=== PATIENT | female | born 1935 | race Caucasian/White ===

== ENCOUNTER 2018-05-19 11:33 | Outpatient (CLI) | payer BC, SELFPAY ==
[2018-05-19 13:17] LABS: HCT 36.5 % (36.0-46.0); HGB 12.2 g/dL (12.0-15.5); Mean Corp. HGB Concentration 33.4 g/dL (32.0-36.0); Mean Corpuscular Hemoglobin 32.1 pg (27.0-33.0); Mean Corpuscular Volume 96.1 fL (80-95); Mean Platelet Volume 11.7 fL (8.0-11.0); Platelet Count 353 x1000/uL (130-400); RBC Distribution Width 13.4 % (11.7-14.6); White Blood Cell Count 8.57 k/cumm (4.4-10.8)
[2018-05-19 13:56] LABS: Anion Gap 8.5 mmol/L (3-11); BUN 15 mg/dL (7-18); CO2 26.5 mmol/L (21.0-32.0); CREATININE 0.66 mg/dL (0.55-1.02); Calcium 9.2 mg/dL (8.5-10.1); Chloride 97 mmol/L (98-107); Glucose 100 mg/dL (70-100); Potassium 4.5 mmol/L (3.5-5.1); Sodium 132 mmol/L (136-145); TSH 3.17 uIU/mL (0.358-3.74)
== END 2018-05-19 11:53 ==
PROVIDERS: PCP Family Medicine; Visit Provider Family Medicine
DX: I10 Essential (primary) hypertension (principal); E21.3 Hyperparathyroidism, unspecified
CPT/HCPCS: 36415; 80048; 85027; 84443

== ENCOUNTER 2018-06-15 00:34 | Outpatient (CLI) | payer BC, SELFPAY ==
--- NOTE | 2018-06-15 14:00 | MERGE_ITS ---
*[facility]* *[facility]* [address] [place] [address] Date of study: 06/15/2018 Transthoracic Echocardiography M-mode, complete 2D, complete spectral Doppler, and color Doppler *STUDY CONCLUSIONS* Summary: 1. Left ventricle: The cavity size was normal. Systolic function was normal. The estimated ejection fraction was 60-65%. Findings consistent with diastolic dysfunction. There was no evidence of elevated ventricular filling pressure by Doppler parameters. 2. Mitral valve: There was mild regurgitation. 3. Left atrium: The atrium was mildly dilated. 4. Right ventricle: The cavity size was normal. Wall thickness was normal. Systolic function was normal. 5. Atrial septum: No defect or patent foramen ovale was identified. 6. Tricuspid valve: There was mild-moderate regurgitation. 7. Pulmonary arteries: Pulmonary systolic pressure was in the range of 30mm Hg to 40mm Hg. 8. Inferior vena cava: The vessel was patent and normal in size. The respirophasic diameter changes were in the normal range (greater than or equal to 50%), consistent with normal central venous pressure. *PATIENT PRESENTATION* Height: 152.4cm ((60in) ) S/D Pressure: 141 / 67 Weight: 72.6kg ((159.7lb) ) BSA: 1.78m^2 Test start time: 02:00 PM. Test stop time: 03:00 PM. PERFORMING Unknown ORDERING Onofre Bran REFERRING Onofre Bran PERFORMING [facility] LENS POLISHER HAND RT Marco Antonio WilkersonR)(CHRISTIANO)MONIKA *PROCEDURE DATA* Procedure information: The patient was identified by two identifiers. This study was interpreted by [facility]. Pertinent images and digital data are archived for permanent storage and are available for subsequent review. No prior study was available for comparison. Study status: Routine. Transthoracic echocardiography. M-mode, complete 2D, complete spectral Doppler, and color Doppler. A Transthoracic Echocardiogram was performed. Scanning was performed from the parasternal, apical, subcostal, and suprasternal notch acoustic windows. Images were obtained using an [id number] cardiac ultrasound machine. Image quality was good. Study completion: The patient tolerated the procedure well. History: PMH: Dyspnea on exertion. *CARDIAC ANATOMY* Left ventricle: The cavity size was normal. Systolic function was normal. The estimated ejection fraction was 60-65%. The tissue Doppler parameters were abnormal. Findings consistent with diastolic dysfunction. There was no evidence of elevated ventricular filling pressure by Doppler parameters. Aortic valve: Trileaflet. Doppler: There was no stenosis. There was no significant regurgitation. VTI ratio of LVOT to aortic valve: 0.65. Valve area (VTI): 1.9cm^2. Indexed valve area (VTI): 1.1cm^2/m^2. Peak velocity ratio of LVOT to aortic valve: 0.62. Valve area (Vmax): 1.8cm^2. Indexed valve area (Vmax): 1cm^2/m^2. Mean velocity ratio of LVOT to aortic valve: 0.66. Valve area (Vmean): 1.9cm^2. Indexed valve area (Vmean): 1.1cm^2/m^2. Mean gradient (S): 6.8mm Hg. Peak gradient (S): 12.6mm Hg. Aorta: Aortic root: The aortic root was normal in size. Ascending aorta: The ascending aorta was normal in size. Mitral valve: Doppler: There was no evidence for stenosis. There was mild regurgitation. Valve area by pressure half-time: 3.4cm^2. Indexed valve area by pressure half-time: 1.9cm^2/m^2. Left atrium: The atrium was mildly dilated. Atrial septum: No defect or patent foramen ovale was identified. Right ventricle: The cavity size was normal. Wall thickness was normal. Systolic function was normal. Pulmonic valve: Doppler: There was no evidence for stenosis. There was mild regurgitation. Peak gradient (S): 2.8mm Hg. Tricuspid valve: Doppler: There was mild-moderate regurgitation. Pulmonary artery: Poorly visualized. Pulmonary systolic pressure was in the range of 30mm Hg to 40mm Hg. Right atrium: The atrium was normal in size. Pericardium: There was no pericardial effusion. Systemic veins: Inferior vena cava: Well visualized. The vessel was patent and normal in size. The respirophasic diameter changes were in the normal range (greater than or equal to 50%), consistent with normal central venous pressure. Baseline ECG: Bradycardia. Measurements Left ventricle Value Reference LV ID, ED, PLAX 3.8 cm 3.5 - 6.0 LV ID, ES, PLAX 2.5 cm 2.1 - 4.0 LV PW thickness, ED, PLAX 0.9 cm LV end-diastolic volume, 1-p A2C 61 ml LV ejection fraction, 1-p A2C 63 % LV end-diastolic volume, 1-p A4C 73 ml LV ejection fraction, 1-p A4C 57 % LV e', lateral 0.079 m/sec LV E/e', lateral 9 LV e', medial 0.066 m/sec LV E/e', medial 10 LV e', average 0.072 m/sec LV E/e', average 9 Ventricular septum Value Reference IVS thickness, ED, PLAX 0.8 cm LVOT Value Reference LVOT ID, A-P 1.9 cm LVOT area 2.9 cm^2 LVOT peak velocity, S 1.09 m/sec LVOT mean velocity, S 0.81 m/sec LVOT VTI, S 28.7 cm LVOT peak gradient, S 4.8 mm Hg LVOT mean gradient, S 2.9 mm Hg Stroke volume (SV), LVOT DP 84 ml Stroke index (SV/bsa), LVOT DP 47 ml/m^2 Aortic valve Value Reference Aortic valve peak velocity, S 1.8 m/sec Aortic valve mean velocity, S 1.24 m/sec Aortic valve VTI, S 44.0 cm Aortic mean gradient, S 6.8 mm Hg Aortic peak gradient, S 12.6 mm Hg VTI ratio, LVOT/AV 0.65 Aortic valve area, VTI 1.9 cm^2 Velocity ratio, peak, LVOT/AV 0.62 Aortic valve area, peak velocity 1.8 cm^2 Velocity ratio, mean, LVOT/AV 0.66 Aortic valve area, mean velocity 1.9 cm^2 Aortic valve area/bsa, mean velocity 1.1 cm^2/m^2 Aorta Value Reference Aortic root ID, ED 2.9 cm Ascending aorta ID, A-P, S 3.1 cm RVOT Value Reference RVOT VTI, S 19.2 cm Left atrium Value Reference LA ID, A-P, ES 4.2 cm LA ID/bsa, A-P (H) 2.4 cm/m^2 <=2.2 LA area, ES, A4C 20.3 cm^2 8.8 - 23.4 LA area, ES, A2C 22 cm^2 LA volume/bsa, ES, 1-p A4C 38 ml/m^2 LA volume, ES, 2-p 64 ml LA volume/bsa, ES, 2-p 36 ml/m^2 LA/aortic root ratio 1.47 Mitral valve Value Reference Mitral E-wave peak velocity 0.68 m/sec Mitral A-wave peak velocity 0.78 m/sec Mitral deceleration time 227 ms 150 - 230 Mitral pressure half-time 66 ms Mitral E/A ratio, peak 0.87 Mitral valve area, PHT, DP 3.4 cm^2 Pulmonary veins Value Reference Pulmonary vein peak velocity, S 0.63 m/sec Pulmonary vein peak velocity, D 0.42 m/sec Pulmonary vein velocity ratio, peak, 1.5 S/D Pulmonary vein A-wave reversal peak 0.33 m/sec velocity Tricuspid valve Value Reference Tricuspid regurg peak velocity 2.9 m/sec Tricuspid peak RV-RA gradient 32.7 mm Hg Right atrium Value Reference RA area, ES, A4C 10.3 cm^2 8.3 - 19.5 Pulmonic valve Value Reference Pulmonic peak gradient, S 2.8 mm Hg Legend: (L) and (H) digna values outside specified reference range. I have personally reviewed the images and have reviewed and edited the reported findings. Electronically signed by Alexandre Caldwell MD 06/15/2018 16:53
== END 2018-06-15 00:54 ==
PROVIDERS: PCP Family Medicine; Visit Provider Family Medicine
DX: R06.09 Other forms of dyspnea (principal); I10 Essential (primary) hypertension; I50.30 Unspecified diastolic (congestive) heart failure; I34.0 Nonrheumatic mitral (valve) insufficiency; I36.1 Nonrheumatic tricuspid (valve) insufficiency; E03.9 Hypothyroidism, unspecified
CPT/HCPCS: 93306

== ENCOUNTER 2019-05-20 11:38 | Outpatient (CLI) | payer BC, SELFPAY ==
[2019-05-20 14:34] LABS: Anion Gap 10.1 mmol/L (3-11); BUN 10 mg/dL (7-18); CO2 27.9 mmol/L (21.0-32.0); Calcium 9.3 mg/dL (8.5-10.1); Chloride 97 mmol/L (98-107); Glucose 99 mg/dL (70-100); Potassium 4.6 mmol/L (3.5-5.1); Sodium 135 mmol/L (136-145)
== END 2019-05-20 11:58 ==
PROVIDERS: PCP Family Medicine; Visit Provider Family Medicine
DX: Z00.00 Encounter for general adult medical examination without abnormal findings (principal)
CPT/HCPCS: 36415; 80048

== ENCOUNTER 2020-05-30 05:09 | Outpatient (CLI) | payer BC, SELFPAY ==
[2020-05-30 12:40] LABS: CREATININE 0.66 mg/dL (0.55-1.02); Calcium 8.9 mg/dL (8.5-10.1)
[2020-06-01 04:39] LABS: Vitamin D 25 Total 39.4 ng/ml (30-100)
[2020-06-02 12:53] LABS: Parathyroid Hormone,Intact 46 pg/mL
== END 2020-05-30 05:29 ==
PROVIDERS: PCP Nurse Practitioner; Visit Provider Nurse Practitioner
DX: E83.52 Hypercalcemia (principal); E21.3 Hyperparathyroidism, unspecified; E03.9 Hypothyroidism, unspecified; I10 Essential (primary) hypertension
CPT/HCPCS: 36415; 82306; 82310; 82565; 83970; 84443

== ENCOUNTER 2020-07-13 02:30 | Outpatient (CLI) | payer BC, SELFPAY ==
[2020-07-13 12:53] LABS: CREATININE 0.71 mg/dL (0.55-1.02); Potassium 4.2 mmol/L (3.5-5.1); TSH 2.46 uIU/mL (0.36-3.74)
== END 2020-07-13 02:50 ==
PROVIDERS: PCP Nurse Practitioner; Visit Provider Nurse Practitioner
DX: E03.9 Hypothyroidism, unspecified (principal); I10 Essential (primary) hypertension
CPT/HCPCS: 36415; 82565; 84132; 84443

== ENCOUNTER 2020-12-27 03:12 | Outpatient (CLI) | payer BC, SELFPAY ==
[2020-12-27 12:44] LABS: CREATININE 0.7 mg/dL (0.55-1.02); TSH 4.51 uIU/mL (0.36-3.74)
== END 2020-12-27 03:13 | disposition home or self-care (01) ==
LOC: LOS 03:12
PROVIDERS: PCP Nurse Practitioner; Visit Provider Nurse Practitioner
DX: E03.9 Hypothyroidism, unspecified (principal); I10 Essential (primary) hypertension
CPT/HCPCS: 36415; 82565; 84132; 84443

== ENCOUNTER 2021-02-14 02:53 | Outpatient (CLI) | payer BC, SELFPAY ==
[2021-02-14 13:17] LABS: TSH 2.61 uIU/mL (0.36-3.74)
== END 2021-02-14 02:54 | disposition home or self-care (01) ==
LOC: LOS 02:54
PROVIDERS: PCP Nurse Practitioner; Visit Provider Nurse Practitioner
DX: E03.9 Hypothyroidism, unspecified (principal)
CPT/HCPCS: 84443

== ENCOUNTER 2021-11-29 03:54 | Outpatient (CLI) | payer BC, SELFPAY | END 2021-11-29 03:55 | disposition home or self-care (01) | LOC: LOS 03:54 | PROVIDERS: PCP Nurse Practitioner; Visit Provider Nurse Practitioner ==

== ENCOUNTER 2021-12-05 01:25 | Outpatient (CLI) | payer BC, SELFPAY ==
[2021-12-05 13:47] LABS: Anion Gap 8.9 mmol/L (3-11); BUN 12 mg/dL (7-18); CO2 27.1 mmol/L (21.0-32.0); CREATININE 0.6 mg/dL (0.55-1.02); Calcium 8.9 mg/dL (8.5-10.1); Chloride 99 mmol/L (98-107); Glucose 90 mg/dL (74-106); Potassium 4.5 mmol/L (3.5-5.1); Sodium 135 mmol/L (136-145); TSH (W/Ref FT4) 2.78 uIU/mL (0.36-3.74)
== END 2021-12-05 01:26 | disposition home or self-care (01) ==
LOC: LOS 01:26
PROVIDERS: PCP Nurse Practitioner; Visit Provider Nurse Practitioner
DX: E03.9 Hypothyroidism, unspecified (principal); I10 Essential (primary) hypertension
CPT/HCPCS: 36415; 80048; 84443

== ENCOUNTER 2022-10-30 10:03 | Outpatient (CLI) | payer BC, SELFPAY ==
--- NOTE | 2022-10-30 10:00 | RT.EKG_ITS ---
APPROVED REPORT Exam: Resting ECG Reason for Exam: vision loss left eye 10/27/22 Patient Location: O HR:60 bpm ECG Measurements Heart Rate 60 AXIS HI 173 P 58 QRSd 92 QRS 36 QT 432 T 7 QTc 432 Conclusion Sinus rhythm...normal P axis, V-rate 50- 99
== END 2022-10-30 10:04 | disposition home or self-care (01) ==
LOC: DI.CM 10:07
PROVIDERS: PCP Nurse Practitioner Family; Visit Provider Nurse Practitioner Family
DX: H53.132 Sudden visual loss, left eye (principal)
CPT/HCPCS: 93010

== ENCOUNTER 2022-10-30 11:45 | Outpatient (CLI) | payer BC, SELFPAY ==
[2022-10-30 11:41] LABS: HCT 35.9 % (36.0-46.0); HGB 12.2 g/dL (11.2-15.7); MCH 32.5 pg (27.0-33.0); MCV 96 fL (80-95); MPV 10.9 fL (8.0-11.0); Platelet Count 316 10^3/uL (130-400); RBC 3.75 10^6/uL (3.93-5.22); RDW 12.9 % (11.7-14.6); RDW-SD 45.9 fL
[2022-10-30 11:50] LABS: PTT Activated 21.4 sec (21.5-31.9)
[2022-10-30 11:54] LABS: ALT 22 U/L (14-59); AST 19 U/L (15-37); Albumin 3.9 g/dL (3.4-5.0); Alkaline Phosphatase 99 U/L (46-116); Anion Gap 9.1 mmol/L (3-11); BUN 12 mg/dL (7-18); Bilirubin, Total 0.5 mg/dL (0.2-1.0); CO2 25.9 mmol/L (21.0-32.0); CREATININE 0.7 mg/dL (0.55-1.02); Calcium 9.5 mg/dL (8.5-10.1); Chloride 98 mmol/L (98-107); Estimated GFR 84.17 (mL/min/1.73m2); Glucose 111 mg/dL (74-106); Potassium 3.9 mmol/L (3.5-5.1); Sodium 133 mmol/L (136-145); Total Protein 7.5 g/dL (6.4-8.2)
[2022-10-30 13:39] LABS: INR 0.9 (0.9-1.1); Prothrombin Time 9.5 sec (9.3-11.0)
== END 2022-10-30 11:46 | disposition home or self-care (01) ==
LOC: LBO 11:46
PROVIDERS: PCP Nurse Practitioner Family; Visit Provider Nurse Practitioner Family
DX: H53.132 Sudden visual loss, left eye (principal)
CPT/HCPCS: 80053; 85027; 85610; 85730

== ENCOUNTER 2022-10-30 12:52 | Outpatient (CLI) | payer BC, SELFPAY ==
--- NOTE | 2022-10-30 13:20 | DI.CT_ITS ---
Exam(s) CT ORBITS WO/W EXAM: CT ORBITS WO/W CLINICAL HISTORY: eye dr rich beckett left eye w/ hemorrhage surroundin. TECHNIQUE: Imaging Protocol: Axial computed tomography images with coronal and sagittal reformatted images were created and reviewed CONTRAST MATERIAL: Intravenous: Omnipaque 350 Contrast volume: 100 structured data in ml Contrast ro [place]:IV - COMPARISON: No exams were available for comparison FINDINGS: Globes: The anterior and posterior chambers are intact. Optic Nerves: Normal. Extraocular muscles: Normal. Retrobulbar fat: Normal. Orbital jennings: No fracture is noted. Superior ophthalmic veins: Normal. Sinuses: Unremarkable. Soft Tissues: Normal. IMPRESSION: Normal CT scan of the orbits. RADIATION DOSE DELIVERED: 492.6mGy.cm Total DLP DATA REPOSITORY: All CT scans at this facility are submitted to the National Radiology Data Registry (NRDR) Dose Index Registry (DIR) with the [employer] (ACR). RADIATION OPTIMIZATION: All CT scans at this facility use at least one of these dose optimization te chniques: automated exposure control; mA and/or kV adjustment per patient size (includes targeted exa ms where dose is matched to clinical indication); or iterative reconstruction.
[2022-10-30] MEDS: Omnipaque 350 MG/ML 100 ML BTL IJ (13:28)
[2022-10-30] MEDS: Normal Saline Flush 10 ML SYR IVP (13:29)
== END 2022-10-30 13:12 ==
LOC: DI 12:54
PROVIDERS: PCP Nurse Practitioner Family; Visit Provider Nurse Practitioner Family
DX: H53.132 Sudden visual loss, left eye (principal); H57.89 Other specified disorders of eye and adnexa
CPT/HCPCS: 70482; J3490

== ENCOUNTER 2022-10-31 16:23 | Inpatient (IN) | payer MEDICARE, BC, SELFPAY ==
[2022-10-31] VITALS (15 sets, daily range): BP systolic 133–194; BP diastolic 54–113; PULSE 73–90; RESP 16–24; TEMP 36.2–38.3; O2SAT 95–100
--- NOTE | 2022-10-31 16:15 | RT.EKG_ITS ---
APPROVED REPORT Exam: Resting ECG Reason for Exam: possible stroke Patient Location: E HR:76 bpm ECG Measurements Heart Rate 76 AXIS [place] 169 P 55 QRSd 92 QRS 27 QT 397 T -6 QTc 447 Conclusion Sinus rhythm...normal P axis, V-rate 60- 99 Repol abnrm suggests ischemia, anterolateral...ST dep, T neg, I aVL V2-V6. Sinus. Normal axis. No STEMI. I have reviewed and interpreted ECG and agree with software generated interpretation.
--- NOTE | 2022-10-31 16:40 | ED.GENADUL_ITS ---
Discharge Plan Disposition Patient Disposition: Admit to [facility] Condition: Stable Discharge Details Clinical Impression: Acute CVA (cerebrovascular accident) Admit Date/Time: 10/31/22 18:21 Admit Provider: Jamaal Valentine Attending Provider: Jamaal Valentine Primary Care Provider: Hang Rene ED Provider: Tamia Marr Discharge Data Discharge Date/Time-TO BE ENTERED AT DEPARTURE: 10/31/22 22:32 Medical Decision Making <Tamia Marr NP - Last Filed: 11/01/22 17:02> This is an 87-year-old patient who comes in with strokelike symptoms now resolved. She takes baby aspirin daily. We will initiate routine stroke work- up. As her symptoms are now resolved will start with Noncon head CT as she had a contrasted CT yesterday. IV has been established. Will continue telemetry monitoring her EKG shows normal sinus rhythm with no acute changes. After all her labs are reviewed and unremarkable symptoms remained resolved. She will be admitted to the hospitalist services for further monitoring and MRI of the brain in the a.m. Case was discussed with neurology at [facility] who does recommend Plavix load and daily Plavix. Also low threshold to perform CTA if her symptoms recur. She will be given gentle IV hydration of half liter normal saline <Renuka Valadez DO - Last Filed: 11/01/22 22:53> This is an 87-year-old patient who comes in with strokelike symptoms now resolved. She takes baby aspirin daily. We will initiate routine stroke work- up. As her symptoms are now resolved will start with Noncon head CT as she had a contrasted CT yesterday. IV has been established. Will continue telemetry monitoring her EKG shows normal sinus rhythm with no acute changes. After all her labs are reviewed and unremarkable symptoms remained resolved. She will be admitted to the hospitalist services for further monitoring and MRI of the brain in the a.m. Case was discussed with neurology at [facility] who does recommend Plavix load and daily Plavix. Also low threshold to perform CTA if her symptoms recur. She will be given gentle IV hydration of half liter normal saline. Dr. Valadez Patient not seen or examined by me but I was available for consult if needed. HPI <Tamia Marr NP - Last Filed: 11/01/22 17:02> General Mode of arrival: ambulatory . Date/Time Provider Initiated Documentation: 10/31/22 16:38 . Limitations to Documentation: no limitations . Information obtained by: family (Son) . HPI Narrative: This is an 87-year-old female patient with a past medical history significant for hypertension hyperlipidemia hypothyroidism who presents to the emergency department after first reporting a sudden loss of vision in her left eye several days ago. She was seen by her head of insight who told her she had a bleed in her eye she has complete loss of vision in that eye. She was then further evaluated by her primary care provider who did routine lab work and a CT of the orbits. CT scan was unremarkable labs unremarkable. Today son reports that he noticed that she started having intermittent garbled speech so presented here for evaluation. She has had intermittent headache. She has had no fever or recent illness. Besides lack of vision her physical exam is unremarkable. She has had no unilateral weakness. Related Data Home Medications Medication Instructions Recorded Confirmed acetaminophen 500 mg tablet 500 mg PO DAILY 02/07/14 10/31/22 (Tylenol Extra Strength) aspirin 81 mg tablet,delayed 81 mg PO DAILY #90 tabs 09/18/21 10/31/22 release Synthroid 88 mcg tablet 88 mcg PO DAILY #90 tabs 07/26/22 10/31/22 (levothyroxine) losartan 50 mg tablet 100 mg PO DAILY #180 tab-caps 07/26/22 10/31/22 metoprolol tartrate 50 mg tablet 50 mg PO BID #180 tab-caps 07/26/22 10/31/22 amlodipine 5 mg tablet 10 mg PO BID 10/31/22 10/31/22 atorvastatin 20 mg tablet 40 mg PO DAILY #90 tabs 11/01/22 10/31/22 clopidogrel 75 mg tablet 75 mg PO DAILY #30 tabs 11/01/22 Previous Rx's Medication Instructions Recorded aspirin 81 mg tablet,delayed 81 mg PO DAILY #90 tabs 09/18/21 release Synthroid 88 mcg tablet 88 mcg PO DAILY #90 tabs 07/26/22 (levothyroxine) losartan 50 mg tablet 100 mg PO DAILY #180 tab-caps 07/26/22 metoprolol tartrate 50 mg tablet 50 mg PO BID #180 tab-caps 07/26/22 atorvastatin 20 mg tablet 40 mg PO DAILY #90 tabs 11/01/22 clopidogrel 75 mg tablet 75 mg PO DAILY #30 tabs 11/01/22 Allergies Allergy/AdvReac Type Severity Reaction Status Date / Time lisinopril AdvReac Severe Suicidal Unverified 10/30/22 09:57 Ideation General Stated Complaint: CVA/TIA ESPINOZA: 2 Review of Systems <Tamia Marr NP - Last Filed: 11/01/22 17:02> Narrative: Loss of vision in left eye and garbled speech All systems reviewed & are unremarkable except as noted in HPI and below PFSH <Tamia Marr NP - Last Filed: 11/01/22 17:02> All Active Problems (Updated 11/01/22 @ 17:02 by Tamia Marr NP) Acute CVA (cerebrovascular accident) (Acute) Obesity (Chronic) a. Stage I. Arthritis (Acute) Essential hypertension (Acute 09/03/13) Hyperlipidemia (Acute) Hyperparathyroidism, unspecified (Acute 07/13/12) Has seen endo at [facility]- bx, benign (2014 @) 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 Edwards,[facility] Hypothyroidism (Acute 03/08/13) Osteopenia (Acute) Osteoarthritis, hip, bilateral (Acute) glucosamine Vision, loss, sudden (Acute) left eye 10/27/22 Medical History End of life care Advanced directives. Patient completed her advance directives and herCOLST forms. 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 Fracture of thoracic spine History of hypercalcemia a. With elevate TTH secondary to a benign adenoma now diminished in size. History of tobacco use Smoking history a. Quit approximately 50 years ago after 10 pack years. Unstable angina a. Recurrent chest pressure with left arm weakness x 4 - 6 weeks. b. Multiple cardiac risk factors. Surgical History Cardiac cath (~2013) History of cardiac cath (12/17/13) Normal coronaries Para-thyroid adenoma surgery (~2014) Skin Cancer Removal 09/07/16 Thyroid (~2005) BX; RIGHT Family History Mother , age 81 Essential hypertension Hypothyroid Hypertension Heart disease Father , age 71 Diabetes Essential hypertension Heart disease Myocardial infarction Sister Essential hypertension Heart disease Breast cancer Brother , age 83 Essential hypertension Depression Stroke Heart disease Maternal Grandfather , age 39 Pneumonia Heart disease Paternal Grandfather , age 72 Heart disease Alcohol abuse Depression Maternal Grandmother , age 36 Heart disease Pneumonia Paternal Grandmother , age 70 Heart disease Depression Son Essential hypertension Depression Alcohol abuse Son Alcohol abuse Essential hypertension Son , AGE 55 Substance abuse Diabetes Essential hypertension Heart disease Hyperlipidemia Depression Son Essential hypertension Daughter Hypertension Sister No problems noted. Social History (Updated 07/30/22 @ 16:17 by Lore Dial) Smoking/Tobacco Use Status: Former Tobacco Use tobacco type: cigarettes Quit Date: 07/28/1967 Tobacco: How many years used: 6 Second Hand Exposure: Yes Smoking risk assessment performed?: Yes Alcohol Intake: current Alcohol Intake frequency: a few times a week Alcohol type: wine Drug use: Never Substance use type: does not use Caregiver/Support person: No Household members: none Housing: apartment Communication Needs: None Do you need help understanding health information?: Never Pets and animals: No Sexually active: No Do you think of yourself as: straight/heterosexual Current gender identity: female What is your relationship status?: How often do you talk on the phone with friends or family?: three or more times per week How often do you get together with friends or relatives?: three or more times per week How often do you attend worship or protestant services?: 4 or more times per year Do you belong to any clubs or organized social groups?: yes Panel score (0-1 are the most socially isolated patients): 3 What type of physical activity do you participate in: walking Duration: 45-60 minutes/day Frequency: 5-6 times per week Gayle/Oriental Orthodox: Catholic Special gayle needs: No Seatbelt use: always Helmet use: No Drive intox or ride w/intox long haul truck driver: No Do you feel safe in your relationship?: Yes Victim of physical abuse: No Victim of emotional abuse: No Victim of sexual abuse: No Would you like helpful sources: No Exam <Tamia Marr NP - Last Filed: 11/01/22 17:02> Const General: cooperative, comfortable and no acute distress Nutritional Appearance: overweight Orientation: alert, awake and oriented to person [facility] Head: normal to inspection, normocephalic and atraumatic Face and sinus: normal facial exam Mouth: oral mucosae normal Throat: posterior oropharynx normal Eyes General: appearance normal, both eyes and all related structures Alignment and Position: alignment normal and position normal Eyelids: eyelids normal Conjunctivae: conjunctivae normal Sclera: sclerae normal EOM: EOM abnormal and movement deficit unable to deviate laterally (To left) Chest Chest: normal inspection of the chest Resp Effort & Inspection: normal respiratory effort Cardio Rate: regular rate Rhythm: regular rhythm GI Inspection: normal to inspection Palpation: soft Auscultation: normal bowel sounds Skin General skin exam: no rashes or lesions noted Neuro General: patient alert, patient awake, patient oriented x3, no focal motor deficits and CN's II-XI intact bilaterally Cranial Nerves: no nystagmus, facial strength normal and tongue midline Cognition: normal cognition Speech: speech normal Gait: normal gait Motor: muscle tone normal throughout and strength 5/5 throughout Extrem General: normal to inspection, full ROM and no pedal edema Psych Mental Status: mental status grossly normal Speech and Movement: speech and movement normal Mood: congruent mood Affect: normal affect Course <Tamia Marr NP - Last Filed: 11/01/22 17:02> Vital Signs Vital signs: Vital Signs Temperature 36.2 C L 10/31/22 16:28 Pulse 83 10/31/22 16:28 Respiratory Rate 16 10/31/22 16:28 Blood Pressure 172/54 H 10/31/22 16:28 Pulse Oximetry 99 10/31/22 16:28 Temperature 36.2 C L 10/31/22 16:28 Temperature Source Oral 10/31/22 16:28 Pulse 83 10/31/22 16:28 Respiratory Rate 16 10/31/22 16:28 Blood Pressure 172/54 H 10/31/22 16:28 Blood Pressure Position Sitting 10/31/22 16:28 Pulse Oximetry 99 10/31/22 16:28 Oxygen Delivery Method Room Air 10/31/22 16:28 Oxygen Flow Rate 0 10/31/22 16:28 Pain Level 5 10/31/22 16:28 Comment takes 500mg tylenol BID 10/31/22 16:28
--- NOTE | 2022-10-31 17:15 | DI.CT_ITS ---
Exam(s) CT HEAD WO EXAM: CT HEAD WO CLINICAL HISTORY: cva. TECHNIQUE: Imaging Protocol: Axial computed tomography images with coronal and sagittal reformatted images were created and reviewed COMPARISON: CT CT ORBITS WO/W from 10/30/2022 FINDINGS: Ventricles and Extra axial spaces: Normal in size and morphology for the patient's age. Hemorrhage: None. Cerebral parenchyma: No acute territorial infarct. There are areas of decreased attenuation in the w kristel matter suggestive of small vessel ischemic disease. Midline shift: None. Brainstem/Cerebellum: Normal. Calvarium: Normal. Visualized Paranasal sinuses/Mastoids: Clear. Soft Tissues: Unremarkable. IMPRESSION: No acute intracranial process. RADIATION DOSE DELIVERED: 769.8mGy.cm Total DLP DATA REPOSITORY: All CT scans at this facility are submitted to the National Radiology Data Registry (NRDR) Dose Index Registry (DIR) with the [employer] (ACR). RADIATION OPTIMIZATION: All CT scans at this facility use at least one of these dose optimization te chniques: automated exposure control; mA and/or kV adjustment per patient size (includes targeted exa ms where dose is matched to clinical indication); or iterative reconstruction.
[2022-10-31] MEDS: Omnipaque 350 MG/ML 100 ML BTL IJ (17:21)
[2022-10-31] MEDS: Normal Saline - Diluent 50 ML VIAL IJ (17:22)
[2022-10-31 17:26] LABS: Abs Immature Grans 0.03 10^3/uL (0.0-0.06); Absolute Basophil Count 0.06 10^3/uL (0.0-0.2); Absolute Eosinophil Count 0.16 10^3/uL (0.0-0.7); Absolute Lymphocyte Count 2.36 10^3/uL (1.2-3.4); Absolute Monocyte Count 0.82 10^3/uL (0.1-0.8); Basophils % 0.6; Eosinophils % 1.6; HCT 32.9 % (36.0-46.0); HGB 11.4 g/dL (11.2-15.7); Immature Grans % 0.3; Lymphocytes % 23.8; MCH 32.5 pg (27.0-33.0); MCHC 34.7 % (32.0-36.0); MCV 94 fL (80-95); Monocytes % 8.3; Neutrophils % 65.4; RBC 3.51 10^6/uL (3.93-5.22); RDW 12.9 % (11.7-14.6); RDW-SD 44.3 fL; WBC 9.93 10^3/uL (4.4-10.8)
--- NOTE | 2022-10-31 17:41 | DI.VRAD_ITS ---
PROCEDURE INFORMATION: Exam: CT Head Without Contrast Exam date and time: 10/31/2022 5:26 PM Age: 87 years old Clinical indication: Condition or disease; Other: CVA TECHNIQUE: Imaging protocol: Computed tomography of the head without contrast. COMPARISON: CT ORBITS WO/W 10/30/2022 1:07 PM FINDINGS: Brain: No evidence of acute infarct. No intraparenchymal hemorrhage. No midline shift or mass effect. No extra-axial fluid collections or hemorrhage. Cerebral ventricles: Mild dilatation of the lateral ventricles, cisterns and sulci is age-appropriate. Paranasal sinuses: Visualized sinuses are unremarkable. No fluid levels. Mastoid air cells: Visualized mastoid air cells are well aerated. Bones/joints: Unremarkable. No acute fracture. Soft tissues: Unremarkable. IMPRESSION: No acute intracranial abnormality. Dictated and Authenticated by: Russ Martinez MD. Ordering:SATYA Cantrell MD
[2022-10-31 17:43] LABS: ALT 22 U/L (14-59); AST 27 U/L (15-37); Albumin 3.6 g/dL (3.4-5.0); Alkaline Phosphatase 97 U/L (46-116); Anion Gap 12.4 mmol/L (3-11); BUN 13 mg/dL (7-18); Bilirubin, Total 0.4 mg/dL (0.2-1.0); CO2 20.6 mmol/L (21.0-32.0); CREATININE 0.6 mg/dL (0.55-1.02); Calcium 9.1 mg/dL (8.5-10.1); Chloride 98 mmol/L (98-107); Estimated GFR 87.36 (mL/min/1.73m2); Glucose 121 mg/dL (74-106); Magnesium 1.8 mg/dL (1.8-2.4); Potassium 4.2 mmol/L (3.5-5.1); Sodium 131 mmol/L (136-145); Total Protein 6.8 g/dL (6.4-8.2)
[2022-10-31 17:46] LABS: Diff Comment Diff Reviewed; RBC Morphology Normal
[2022-10-31] MEDS: Metoprolol 50 MG TAB PO (18:31)
[2022-10-31 18:41] LABS: Source Nasal/Nares
[2022-10-31 19:13] LABS: COVID-19 PCR Negative (Negative)
[2022-10-31] MEDS: amLODIPine 10 MG TAB PO (20:33)
--- NOTE | 2022-10-31 21:02 | HPE_ITS ---
Date of service: 10/31/22 Time of Service: 21:02 Assessment and Plan Assessment and plan (1) CVA (cerebral vascular accident): Status: Suspected Assessment and plan: discussed with Dr De Los Santos at [facility], recommends plavix 300 mg load and 75 mg daily while awaiting MRI tomorrow, low threshold to do CTA head/neck if symptoms return (held off as she received IV contrast yesterday). telemetry, and routine cva work up. echo and carotid us in am (2) Vision, loss, sudden: Status: Acute Assessment and plan: seen by software tester and diagnosed with central retinal artery occlusion. Most likely she has been taking increased ASA dose of 325 mg daily symptoms unchanged since Friday when they began (3) Hyperlipidemia: Status: Acute Assessment and plan: continue statin (4) Essential hypertension: Status: Acute Assessment and plan: continue home medication consider permission HTN if cva confirmed, goal sbp < [address] Valentine History of Present Illness History of Present Illness Chief Complaint: garbled speech Narrative: This is an 87-year-old female patient with history of hypertension hyperlipidemia hypothyroidism who presented to the emergency department after she developed garbled speech today approximately noon. Earlier this week she developed left-sided visual loss seen by optometry and diagnosed with a retinal artery occlusion. She was referred to her PCP for further stroke work-up. She takes a baby aspirin daily. No history of atrial fibrillation no chest pain or chest palpitations. She has had no fever and otherwise no other complaints Review of Systems All systems reviewed & are unremarkable except as noted in HPI and below PFSH All Active Problems (Updated 10/31/22 @ 22:01 by Tamia Marr NP) Obesity (Chronic) a. Stage I. 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 Edwards,[facility] Hypothyroidism (Acute 03/08/13) Osteopenia (Acute) Osteoarthritis, hip, bilateral (Acute) glucosamine Vision, loss, sudden (Acute) left eye 10/27/22 Medical History End of life care Advanced directives. Patient completed her advance directives and herCOLST forms. 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 Fracture of thoracic spine History of hypercalcemia a. With elevate TTH secondary to a benign adenoma now diminished in size. History of tobacco use Smoking history a. Quit approximately 50 years ago after 10 pack years. Unstable angina a. Recurrent chest pressure with left arm weakness x 4 - 6 weeks. b. Multiple cardiac risk factors. Surgical History Cardiac cath (~2013) History of cardiac cath (12/17/13) Normal coronaries Para-thyroid adenoma surgery (~2014) Skin Cancer Removal 09/07/16 Thyroid (~2005) BX; RIGHT Family History Mother , age 81 Essential hypertension Hypothyroid Hypertension Heart disease Father , age 71 Diabetes Essential hypertension Heart disease Myocardial infarction Sister Essential hypertension Heart disease Breast cancer Brother , age 83 Essential hypertension Depression Stroke Heart disease Maternal Grandfather , age 39 Pneumonia Heart disease Paternal Grandfather , age 72 Heart disease Alcohol abuse Depression Maternal Grandmother , age 36 Heart disease Pneumonia Paternal Grandmother , age 70 Heart disease Depression Son Essential hypertension Depression Alcohol abuse Son Alcohol abuse Essential hypertension Son , AGE 55 Substance abuse Diabetes Essential hypertension Heart disease Hyperlipidemia Depression Son Essential hypertension Daughter Hypertension Sister No problems noted. Social History (Updated 07/30/22 @ 16:17 by Lore Dial) Smoking/Tobacco Use Status: Former Tobacco Use tobacco type: cigarettes Quit Date: 07/28/1967 Tobacco: How many years used: 6 Second Hand Exposure: Yes Smoking risk assessment performed?: Yes Alcohol Intake: current Alcohol Intake frequency: a few times a week Alcohol type: wine Drug use: Never Substance use type: does not use Caregiver/Support person: No Household members: none Housing: apartment Communication Needs: None Do you need help understanding health information?: Never Pets and animals: No Sexually active: No Do you think of yourself as: straight/heterosexual Current gender identity: female What is your relationship status?: How often do you talk on the phone with friends or family?: three or more times per week How often do you get together with friends or relatives?: three or more times per week How often do you attend mandaen or mandaeism services?: 4 or more times per year Do you belong to any clubs or organized social groups?: yes Panel score (0-1 are the most socially isolated patients): 3 What type of physical activity do you participate in: walking Duration: 45-60 minutes/day Frequency: 5-6 times per week Gayle/Sabianist: Rastafarian Special gayle needs: No Seatbelt use: always Helmet use: No Drive intox or ride w/intox milk pickup driver: No Do you feel safe in your relationship?: Yes Victim of physical abuse: No Victim of emotional abuse: No Victim of sexual abuse: No Would you like helpful sources: No Meds Allergies and Home Medications Allergies Allergy/AdvReac Type Severity Reaction Status Date / Time lisinopril AdvReac Severe Suicidal Unverified 10/30/22 09:57 Ideation Home Medications Medication Instructions Recorded Confirmed Type acetaminophen 500 mg tablet 500 mg PO DAILY 02/07/14 10/31/22 History (Tylenol Extra Strength) aspirin 81 mg tablet,delayed 81 mg PO DAILY #90 tabs 09/18/21 10/31/22 Rx release Synthroid 88 mcg tablet 88 mcg PO DAILY #90 tabs 07/26/22 10/31/22 Rx (levothyroxine) losartan 50 mg tablet 100 mg PO DAILY #180 tab-caps 07/26/22 10/31/22 Rx metoprolol tartrate 50 mg tablet 50 mg PO BID #180 tab-caps 07/26/22 10/31/22 Rx amlodipine 5 mg tablet 10 mg PO BID 10/31/22 10/31/22 History atorvastatin 20 mg tablet 40 mg PO DAILY #90 tabs 11/01/22 10/31/22 Rx clopidogrel 75 mg tablet 75 mg PO DAILY #30 tabs 11/01/22 Rx Exam Const General: cooperative, comfortable and no acute distress Nutritional Appearance: overweight Orientation: alert, awake and oriented to person [facility] Head: normal to inspection, normocephalic and atraumatic Face and sinus: normal facial exam Mouth: oral mucosae normal Throat: posterior oropharynx normal Eyes General: appearance normal, both eyes and all related structures Alignment and Position: alignment normal and position normal Eyelids: eyelids normal Conjunctivae: conjunctivae normal Sclera: sclerae normal EOM: EOM abnormal and movement deficit unable to deviate laterally (To left) Chest Chest: normal inspection of the chest Resp Effort & Inspection: normal respiratory effort Cardio Rate: regular rate Rhythm: regular rhythm GI Inspection: normal to inspection Palpation: soft Auscultation: normal bowel sounds Skin General skin exam: no rashes or lesions noted Neuro General: patient alert, patient awake, patient oriented x3, no focal motor deficits and CN's II-XI intact bilaterally Cranial Nerves: no nystagmus, facial strength normal and tongue midline Cognition: normal cognition Speech: speech normal Gait: normal gait Motor: muscle tone normal throughout and strength 5/5 throughout Extrem General: normal to inspection, full ROM and no pedal edema Psych Mental Status: mental status grossly normal Speech and Movement: speech and movement normal Mood: congruent mood Affect: normal affect Results Labs 10/31/22 17:14 10/31/22 17:14 Labs: Laboratory Results - last 24 hr 10/31/22 10/31/22 10/31/22 17:14 17:14 18:28 WBC 9.93 RBC 3.51 L Hgb 11.4 Hct 32.9 L MCV 94 MCH 32.5 MCHC 34.7 RDW 12.9 Plt Count MPV Immature Gran % 0.3 Neutrophils % 65.4 Lymphocytes % 23.8 Monocytes % 8.3 Eosinophils % 1.6 Basophils % 0.6 Nucleated RBC % 0.0 Absolute Neutrophils 6.50 Absolute Lymphocytes 2.36 Absolute Monocytes 0.82 H Absolute Eosinophils 0.16 Absolute Basophils 0.06 RBC Morphology Normal Sodium 131 L Potassium 4.2 Chloride 98 Carbon Dioxide 20.6 L Anion Gap 12.4 H BUN 13 Creatinine 0.6 Est GFR (CKD-EPI 2020) 87.36 Glucose 121 H Calcium 9.1 Magnesium 1.8 Total Bilirubin 0.4 AST 27 ALT 22 Alkaline Phosphatase 97 Total Protein 6.8 Albumin 3.6 COVID-19 Source Nasal/Nares SARS-CoV-2 (PCR) Negative Last Vital Signs Temp 38.1 C H 10/31/22 19:59 Pulse 78 10/31/22 19:59 Resp 16 10/31/22 19:59 BP 173/73 H 10/31/22 19:59 Pulse Ox 98 10/31/22 19:59 Time Spent Time spent with Patient: 40-54 minutes Time was spent: preparing to see the patient(eg.review tests), obtaining and/or reviewing separately otained hiistory, ordering medications,tests, procedures, referring, communicating with other health acute care surgeon, indepentently interpreting results and counseling the patient
[2022-10-31] MEDS: Acetaminophen 325 MG TAB 650 MG PO (22:57)
[2022-10-31] MEDS: Clopidogrel 300 MG TAB PO (22:57)
[2022-10-31] MEDS: Normal Saline 1,000 ML 100 ML IV (22:59)
[2022-10-31 23:18] LABS: Bilirubin Negative (Negative); Blood Trace-intact (Negative); Clarity Clear (Clear); Glucose Negative (Negative); Ketones 15 mg/dL (Negative); Leukocyte Esterase Negative (Negative); Nitrite Negative (Negative); Urobilinogen 0.2 mg/dL (Up to 0.2); pH 7.5 (5-8)
[2022-10-31 23:26] LABS: Bacteria Rare HPF (Negative); C & S Indicated? No; Casts Negative LPF (Negative); Crystals Negative HPF (Negative); Epithelial Cells Negative HPF (Negative); Mucus Negative (Negative); RBC 0-2 HPF (0-2); WBC Negative HPF (0-5)
[2022-11-01] VITALS (7 sets, daily range): BP systolic 146–165; BP diastolic 64–74; PULSE 66–88; RESP 16–20; TEMP 36.3–38; O2SAT 97–99
[2022-11-01] MEDS: Levothyroxine 88 MCG TAB PO (06:11)
[2022-11-01] MEDS: Acetaminophen 325 MG TAB 650 MG PO (06:11)
[2022-11-01 07:02] LABS: Abs Immature Grans 0.02 10^3/uL (0.0-0.06); Absolute Basophil Count 0.07 10^3/uL (0.0-0.2); Absolute Eosinophil Count 0.04 10^3/uL (0.0-0.7); Absolute Lymphocyte Count 1.38 10^3/uL (1.2-3.4); Absolute Monocyte Count 0.71 10^3/uL (0.1-0.8); Absolute Neutrophil Count 7.73 10^3/uL (1.2-6.7); Basophils % 0.7; Eosinophils % 0.4; HCT 32.8 % (36.0-46.0); HGB 11.6 g/dL (11.2-15.7); Immature Grans % 0.2; Lymphocytes % 13.9; MCH 33.3 pg (27.0-33.0); MCHC 35.4 % (32.0-36.0); MCV 94 fL (80-95); MPV 10.5 fL (8.0-11.0); Monocytes % 7.1; Neutrophils % 77.7; Platelet Count 331 10^3/uL (130-400); RBC 3.48 10^6/uL (3.93-5.22); RDW 12.9 % (11.7-14.6); RDW-SD 44.3 fL; WBC 9.95 10^3/uL (4.4-10.8)
[2022-11-01 07:12] LABS: Anion Gap 10.3 mmol/L (3-11); BUN 8 mg/dL (7-18); CO2 24.7 mmol/L (21.0-32.0); CREATININE 0.6 mg/dL (0.55-1.02); Calcium 8.5 mg/dL (8.5-10.1); Chloride 96 mmol/L (98-107); Estimated GFR 87.36 (mL/min/1.73m2); Glucose 120 mg/dL (74-106); Potassium 3.2 mmol/L (3.5-5.1); Sodium 131 mmol/L (136-145)
--- NOTE | 2022-11-01 08:00 | DI.US_ITS ---
Exam(s) US CAROTID EXAM: US CAROTID CLINICAL HISTORY: cva. TECHNIQUE: Ultrasound carotids performed using grayscale, color-flow, and spectral Doppler imaging. COMPARISON: No exams were available for comparison FINDINGS: RIGHT CAROTID ARTERY: Plaque: There is carotid plaque seen in the bulb and proximal ECA. Velocity elevation: None. LEFT CAROTID ARTERY: Plaque: There is calcific plaque seen in the mid CCA and carotid bulb. Velocity elevation: None. VERTEBRAL ARTERIES: Antegrade flow. Measurements: R Bulb: 84.1cm/s PS / 7.6cm/s ED R CCA: 89.3cm/s PS / 0cm/s ED R ECA: 167.2cm/s PS / 0cm/s ED R ICA Prox: 84cm/s PS / 11.9cm/s ED R ICA Mid: 65.5cm/s PS / 11.9cm/s ED R ICA Distal: 83cm/s PS /18.5cm/s ED R Vert: 70.9cm/s PS / 13cm/s ED R SVR: 0.9 R DVR: 1 L Bulb: 77.4cm/s PS / 9.6cm/s ED L CCA: 95.4cm/s PS / 15.47cm/s ED L ECA: 162cm/s PS / 0cm/s ED L ICA Prox: 86.9cm/s PS / 15.8cm/s ED L ICA Mid: 94.4cm/s PS / 16.8cm/s ED L ICA Distal: 98.7cm/s PS / 19.2cm/s ED L Vert: 106cm/s PS / 21cm/s ED L SVR: 1 L DVR: 1.3 IMPRESSION: 1. No evidence for hemodynamically significant carotid stenosis. 2. Atherosclerosis. Criteria for Carotid Stenosis: Normal: ICA PSV <125 cm/s no plaque or intimal thickening is visible. <50% stenosis: ICA PSV <125 cm/s and plaque or intimal thickening is visible. 50-69% stenosis: ICA PSV is 125-250 cm/s and plaque is visible. >70% stenosis to near occlusion: ICA PSV >250 cm/s with visible plaque and luminal narrowing. DATA REPOSITORY:
[2022-11-01] MEDS: amLODIPine 5 MG TAB 10 MG PO (08:11)
[2022-11-01] MEDS: Atorvastatin 20 MG TAB PO (08:11)
[2022-11-01] MEDS: Losartan 50 MG TAB 100 MG PO (08:11)
[2022-11-01] MEDS: Aspirin E.C. 81 MG TABEC PO (08:11)
[2022-11-01] MEDS: Metoprolol 50 MG TAB PO (08:12)
[2022-11-01] MEDS: Clopidogrel 75 MG TAB PO (08:12)
[2022-11-01 09:52] LABS: Magnesium 1.8 mg/dL (1.8-2.4)
--- NOTE | 2022-11-01 10:56 | INITIAL_ITS ---
- If Service Date Differs Date of service: 11/01/22 Time of Service: 10:56 Care Management Initial Assess REASON FOR HOSPITALIZATION:: CVA PAST MEDICAL HISTORY/PAST SURGICAL HISTORY:: Medical History . End of life care. Advanced directives. Patient completed her advance directives and her [employer] forms. 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 Fracture of thoracic spine. History of hypercalcemia. a. With elevate TTH secondary to a benign adenoma now diminished in size. History of tobacco use. Smoking history. a. Quit approximately 50 years ago after 10 pack years. Unstable angina. a. Recurrent chest pressure with left arm weakness x 4 - 6 weeks. b. Multiple cardiac risk factors. Surgical History . Cardiac cath (~2013). History of cardiac cath (12/17/13). Normal coronaries. Para-thyroid adenoma surgery (~2014). Skin Cancer Removal. 09/07/16. Thyroid (~2005). BX; RIGHT PREVIOUS FUNCTIONAL STATUS/SOCIAL/FAMILY SUPPORTS:: Zane resides in [place], [place] in an inlaw apartment attached to her son, Chip's home. She is independent at baseline in the community and continues to drive and manage her own ADLs. 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 CURRENT FUNCTIONAL STATUS:: Zane was sitting in her chair, she asked appropriate questions regarding discharge information and felt ready to return home independently. Her son, Chip was agreeable to plan as well. Both expressed appreciation for Zane's care. ADVANCE DIRECTIVES:: COLST on file. Has patient been provided with info about the portal/API?: Yes Did the patient sign up for the portal?: Yes CODE STATUS:: DNR/DNI INSURANCE COVERAGE / FINANCIAL ISSUES:: Medicare Part A. [facility] PRIMARY CARE PHYSICIAN:: Hang Elam NP. [facility]. POTENTIAL DISCHARGE NEEDS:: Follow up appointments. PATIENT/FAMILY EDUCATION NEEDS:: Review discharge instructions, discuss Ask Me Three. ANTICIPATED BARRIERS TO DISCHARGE:: None identified. TRANSPORTATION:: Via private vehicle with her son. PLAN:: Zane will return home when ready per MD. She will follow up with her PCP and plan of care as prescribed including outpatient follow up. She will transport via private vehicle with her son.
[2022-11-01] MEDS: Potassium Chloride 20 MEQ TABCR PO ×2 (11:59→16:38)
--- NOTE | 2022-11-01 14:45 | CHAPLAIN ---
Zane was up in a chair visiting with two family members/friends when I stopped in. She was very pleasant and easily engaged in a conversation. She hopes to go hoe soon.
--- NOTE | 2022-11-01 16:22 | W.PM.DS.N ---
Date of service: 11/01/22 Time of Service: 16:22 DS: Diagnosis Discharge Diagnosis (1) CVA (cerebral vascular accident): Status: Suspected (2) Vision, loss, sudden: Status: Acute (3) Hyperlipidemia: Status: Acute (4) Essential hypertension: Status: Acute Discharge Plan Disposition Patient Disposition: Home Condition: Stable Discharge Details Reason For Visit: CVA Admit Date/Time: 10/31/22 18:21 Admit Provider: Jamaal Valentine Attending Provider: Jamaal Valentine Primary Care Provider: Orquidea ElamHang Hospital Course Hospital Course: This is a 87-year-old female patient history of hypertension dyslipidemia hypothyroidism who had a sudden loss of vision in her left eye on Friday. She was seen by her clinical quality analyst who diagnosed her with a retinal artery occlusion. He recommended that she increase her aspirin to 325 mg daily and was seen by her primary care provider for stroke work-up. On the day of presentation she did develop garbled speech which had resolved by the time she arrived to the emergency department. Her work-up in the emergency department included a CT without contrast that showed no acute findings. Her case was discussed with neurology at [facility] who is in agreement with observation admission MRI in the a.m. and Plavix. She remained stable overnight telemetry with no evidence of atrial fibrillation but MRI of the brain did show an acute/subacute infarct on the left occipital territory. These findings were discussed with neurology at [facility] once again and they are in agreement with dual antiplatelet at discharge for 3 weeks. Also advised to increase her statin. She will be discharged home with a cardiac cath lab radiology technologist. Her carotid ultrasound showed no evidence of significant carotid stenosis. Echocardiogram shows EF of 55% with no segmental wall motion abnormalities and no significant valvular disease. RVSP 34 mmHg. She is safe to discharge home with outpatient follow-up with neurology discharge is discussed with Dr. Valentnie Home Meds and New Rx's Prescriptions: New clopidogrel 75 mg Tablet 75 mg PO DAILY Qty: 30 0RF Continued losartan 50 mg tablet 100 mg PO DAILY Qty: 180 3RF Rx Instructions: [facility] metoprolol tartrate 50 mg tablet 50 mg PO BID Qty: 180 4RF levothyroxine [Synthroid] 88 mcg tablet 88 mcg PO DAILY Qty: 90 4RF acetaminophen [Tylenol Extra Strength] 500 MG tablet 500 mg PO DAILY Patient Comments: 12/01/15 only takes one PRN. LR aspirin 81 mg tablet,delayed release (DR/EC) 81 mg PO DAILY Qty: 90 4RF amlodipine 5 mg tablet 10 mg PO BID Changed atorvastatin 20 mg tablet 40 mg PO DAILY Qty: 90 4RF Discharge Instructions Instructions: Stroke (DC) Stand Alone Forms: Nursing Discharge Form Referrals: Hang Rene NP [Primary Care Provider] - (Please make an appointment with your primary care provider for 2-3 weeks ) Inga Eller MD [ [facility] STAFF PHYSICIAN] - (Please make an appointment with [facility], as soon as possible. ) Activity:: Activity as Tolerated Equipment/Supplies:: No Equipment Needed Diet:: As Tolerated Discharge Orders Discharge Orders: Discharge Order (Routine); Ordered 11/01/22 Ordered By: Tamia Marr Other Ambulatory Orders: Cardiac Event Recorder (Routine) Timeframe: 20221101 Facility: [facility] - Location: Respiratory Therapy Ordered By: Tamia Marr DS: Summary Time Spent with Patient providing and/or coordinating discharge services: Greater than 30 minutes Status at Discharge Functional status at discharge: independent ambulation Overall status at discharge: patient is progressing back to baseline Mental Status: mental status grossly normal Speech and Movement: speech and movement normal Mood: congruent mood Affect: normal affect Exam Const General: cooperative, comfortable and no acute distress Nutritional Appearance: overweight Orientation: alert, awake and oriented to person HENDE Head: normal to inspection, normocephalic and atraumatic Face and sinus: normal facial exam Mouth: oral mucosae normal Eyes General: appearance normal, both eyes and all related structures Alignment and Position: alignment normal and position normal Eyelids: eyelids normal Conjunctivae: conjunctivae normal Sclera: sclerae normal EOM: EOM abnormal and movement deficit unable to deviate laterally (To left) Chest Chest: normal inspection of the chest Resp Effort & Inspection: normal respiratory effort Cardio Rate: regular rate Rhythm: regular rhythm GI Inspection: normal to inspection Palpation: soft Auscultation: normal bowel sounds Skin General skin exam: no rashes or lesions noted Neuro General: patient alert, patient awake, patient oriented x3, no focal motor deficits and CN's II-XI intact bilaterally Cranial Nerves: no nystagmus, facial strength normal and tongue midline Cognition: normal cognition Speech: speech normal Gait: normal gait Motor: muscle tone normal throughout and strength 5/5 throughout Extrem General: normal to inspection, full ROM and no pedal edema Psych Mental Status: mental status grossly normal Speech and Movement: speech and movement normal Mood: congruent mood Affect: normal affect DS: Data Vitals/I&O Vitals and I&O: Vital Signs Temperature 36.8 C 11/01/22 15:17 Temperature Source Tympanic 11/01/22 15:17 Pulse 67 11/01/22 15:17 Pulse Rhythm Regular 11/01/22 08:11 Pulse 90 10/31/22 18:16 Respiratory Rate 19 11/01/22 15:17 Respiratory Effort Normal, Non-Labored 11/01/22 08:11 Respiratory Depth Normal 11/01/22 08:11 Respiratory Pattern Normal 11/01/22 08:11 Blood Pressure 162/74 H 11/01/22 15:17 Blood Pressure Mean 123 10/31/22 18:45 Blood Pressure Position Sitting 10/31/22 16:28 Pulse Oximetry 98 11/01/22 15:17 Oxygen Delivery Method Room Air 11/01/22 15:17 Oxygen Flow Rate 0 11/01/22 15:17 Pain Level 0 11/01/22 15:17 Comment takes 500mg tylenol BID 10/31/22 16:28 Intake & Output 10/31/22 11/01/22 11/01/22 23:59 11:59 23:59 Intake Total 1000 / 1000 Output Total 400 / 400 Balance -400 / -400 1000 / 1000 Weight 74.843 kg Intake: IV 1000 / 1000 Output: Urine 400 / 400 Other: Urine Color Yellow Urine Appearance Clear Urine Odor None Comment Unmeasurable amount voided at this time. Data Completed and Pending Labs on day of discharge: Labs from last 24 hours 11/01/22 11/01/22 11/01/22 06:50 06:50 06:50 WBC 9.95 RBC 3.48 L Hgb 11.6 Hct 32.8 L MCV 94 MCH 33.3 H MCHC 35.4 RDW 12.9 Plt Count 331 MPV 10.5 Immature Gran % 0.2 Neutrophils % 77.7 Lymphocytes % 13.9 Monocytes % 7.1 Eosinophils % 0.4 Basophils % 0.7 Nucleated RBC % 0.0 Absolute Neutrophils 7.73 H Absolute Lymphocytes 1.38 Absolute Monocytes 0.71 Absolute Eosinophils 0.04 Absolute Basophils 0.07 RBC Morphology Sodium 131 L Potassium 3.2 L D Chloride 96 L Carbon Dioxide 24.7 Anion Gap 10.3 BUN 8 Creatinine 0.6 Est GFR (CKD-EPI 2020) 87.36 Glucose 120 H Calcium 8.5 Magnesium 1.8 Total Bilirubin AST ALT Alkaline Phosphatase Total Protein Albumin Urine Color Urine Clarity Urine pH Ur Specific [place] Urine Protein Urine Ketones Urine Blood Urine Nitrite Urine Bilirubin Urine Urobilinogen Ur Leukocyte Esterase Urine RBC Urine WBC Ur Epithelial Cells Urine Crystals Urine Bacteria Urine Casts Urine Mucus Ur Culture Indicated? Urine Glucose COVID-19 Source SARS-CoV-2 (PCR) 10/31/22 10/31/22 10/31/22 23:05 18:28 17:14 WBC 9.93 RBC 3.51 L Hgb 11.4 Hct 32.9 L MCV 94 MCH 32.5 MCHC 34.7 RDW 12.9 Plt Count MPV Immature Gran % 0.3 Neutrophils % 65.4 Lymphocytes % 23.8 Monocytes % 8.3 Eosinophils % 1.6 Basophils % 0.6 Nucleated RBC % 0.0 Absolute Neutrophils 6.50 Absolute Lymphocytes 2.36 Absolute Monocytes 0.82 H Absolute Eosinophils 0.16 Absolute Basophils 0.06 RBC Morphology Normal Sodium Potassium Chloride Carbon Dioxide Anion Gap BUN Creatinine Est GFR (CKD-EPI 2020) Glucose Calcium Magnesium Total Bilirubin AST ALT Alkaline Phosphatase Total Protein Albumin Urine Color Yellow Urine Clarity Clear Urine pH 7.5 Ur Specific [place] 1.020 Urine Protein Negative Urine Ketones 15 H Urine Blood Trace-intact H Urine Nitrite Negative Urine Bilirubin Negative Urine Urobilinogen 0.2 Ur Leukocyte Esterase Negative Urine RBC 0-2 Urine WBC Negative Ur Epithelial Cells Negative Urine Crystals Negative Urine Bacteria Rare Urine Casts Negative Urine Mucus Negative Ur Culture Indicated? No Urine Glucose Negative COVID-19 Source Nasal/Nares SARS-CoV-2 (PCR) Negative 10/31/22 17:14 WBC RBC Hgb Hct MCV MCH MCHC RDW Plt Count MPV Immature Gran % Neutrophils % Lymphocytes % Monocytes % Eosinophils % Basophils % Nucleated RBC % Absolute Neutrophils Absolute Lymphocytes Absolute Monocytes Absolute Eosinophils Absolute Basophils RBC Morphology Sodium 131 L Potassium 4.2 Chloride 98 Carbon Dioxide 20.6 L Anion Gap 12.4 H BUN 13 Creatinine 0.6 Est GFR (CKD-EPI 2020) 87.36 Glucose 121 H Calcium 9.1 Magnesium 1.8 Total Bilirubin 0.4 AST 27 ALT 22 Alkaline Phosphatase 97 Total Protein 6.8 Albumin 3.6 Urine Color Urine Clarity Urine pH Ur Specific [place] Urine Protein Urine Ketones Urine Blood Urine Nitrite Urine Bilirubin Urine Urobilinogen Ur Leukocyte Esterase Urine RBC Urine WBC Ur Epithelial Cells Urine Crystals Urine Bacteria Urine Casts Urine Mucus Ur Culture Indicated? Urine Glucose COVID-19 Source SARS-CoV-2 (PCR) PFSH All Active Problems (Updated 10/31/22 @ 22:01 by Tamia Marr NP) Obesity (Chronic) a. Stage I. 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 Edwards,[facility] Hypothyroidism (Acute 03/08/13) Osteopenia (Acute) Osteoarthritis, hip, bilateral (Acute) glucosamine Vision, loss, sudden (Acute) left eye 10/27/22 Medical History End of life care Advanced directives. Patient completed her advance directives and herCOLST forms. 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 Fracture of thoracic spine History of hypercalcemia a. With elevate TTH secondary to a benign adenoma now diminished in size. History of tobacco use Smoking history a. Quit approximately 50 years ago after 10 pack years. Unstable angina a. Recurrent chest pressure with left arm weakness x 4 - 6 weeks. b. Multiple cardiac risk factors. Surgical History Cardiac cath (~2013) History of cardiac cath (12/17/13) Normal coronaries Para-thyroid adenoma surgery (~2014) Skin Cancer Removal 09/07/16 Thyroid (~2005) BX; RIGHT Family History Mother , age 81 Essential hypertension Hypothyroid Hypertension Heart disease Father , age 71 Diabetes Essential hypertension Heart disease Myocardial infarction Sister Essential hypertension Heart disease Breast cancer Brother , age 83 Essential hypertension Depression Stroke Heart disease Maternal Grandfather , age 39 Pneumonia Heart disease Paternal Grandfather , age 72 Heart disease Alcohol abuse Depression Maternal Grandmother , age 36 Heart disease Pneumonia Paternal Grandmother , age 70 Heart disease Depression Son Essential hypertension Depression Alcohol abuse Son Alcohol abuse Essential hypertension Son , AGE 55 Substance abuse Diabetes Essential hypertension Heart disease Hyperlipidemia Depression Son Essential hypertension Daughter Hypertension Sister No problems noted. Social History (Updated 07/30/22 @ 16:17 by Lore Dial) Smoking/Tobacco Use Status: Former Tobacco Use tobacco type: cigarettes Quit Date: 07/28/1967 Tobacco: How many years used: 6 Second Hand Exposure: Yes Smoking risk assessment performed?: Yes Alcohol Intake: current Alcohol Intake frequency: a few times a week Alcohol type: wine Drug use: Never Substance use type: does not use Caregiver/Support person: No Household members: none Housing: apartment Communication Needs: None Do you need help understanding health information?: Never Pets and animals: No Sexually active: No Do you think of yourself as: straight/heterosexual Current gender identity: female What is your relationship status?: How often do you talk on the phone with friends or family?: three or more times per week How often do you get together with friends or relatives?: three or more times per week How often do you attend jain or yarsani services?: 4 or more times per year Do you belong to any clubs or organized social groups?: yes Panel score (0-1 are the most socially isolated patients): 3 What type of physical activity do you participate in: walking Duration: 45-60 minutes/day Frequency: 5-6 times per week Gayle/Taoism: Jain Special gayle needs: No Seatbelt use: always Helmet use: No Drive intox or ride w/intox class b driver: No Do you feel safe in your relationship?: Yes Victim of physical abuse: No Victim of emotional abuse: No Victim of sexual abuse: No Would you like helpful sources: No Time Spent with Patient Time Spent with Patient: 45-69 minutes Time was spent: preparing to see the patient(eg.review tests), obtaining and/or reviewing separately otained hiistory, ordering medications,tests, procedures, referring, communicating with other health healthcare economics manager, indepentently interpreting results, counseling the patient and care coordination
--- NOTE | 2022-11-01 22:21 | DI.MRI_ITS ---
Exam(s) MR BRAIN WO EXAM: MR BRAIN WO CLINICAL HISTORY: cva TECHNIQUE: Multiplanar multisequence MRI of the brain was performed. COMPARISON: CT CT HEAD WO from 10/31/2022 FINDINGS: VENTRICLES AND EXTRA AXIAL SPACES: Normal in size and morphology for the patient's age. MIDLINE SHIFT: None. CEREBRAL PARENCHYMA: On the diffusion-weighted images in the left occipital lobe, there is a linear a unique of restricted diffusion present. On the ADC images there do appear to be hypointense areas which correspond. The findings are suggestive of a subacute/acute infarct. No space-occupying lesion albertina ntified. There are multiple areas of hyperintense signal seen in the white matter on the FLAIR and T2 weighted images and within the brainstem most suggestive of small vessel ischemic disease. HEMORRHAGE: None. BRAINSTEM/CEREBELLUM: Normal. CALVARIUM: Normal. VISUALIZED PARANASAL SINUSES/MASTOIDS:Clear. [place]: Normal flow void. PITUITARY GLAND: Unremarkable. OTHER FINDINGS: None. IMPRESSION: 1. Findings suggestive of a small acute/subacute infarct in the left occipital lobe. 2. 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 DATA REPOSITORY:
--- NOTE | 2022-11-04 18:13 | PT.INNT ---
Date of service: 11/01/22 PT Notes Visit Reasons: Cerebrovascular accident Patient discharged from hospital on 11/01/2022. No serices were provided for this epsiode of care.
== END 2022-11-01 17:47 | disposition home or self-care (01) | DRG 65 ==
LOC: ER 16:43 → MS 19:37
PROVIDERS: Admitting Provider Internal Medicine; Emergency Provider Nurse Practitioner Acute Care; PCP Nurse Practitioner Family; Visit Provider Internal Medicine
DX: I63.9 Cerebral infarction, unspecified (principal); H34.12 Central retinal artery occlusion, left eye; H53.132 Sudden visual loss, left eye; E78.5 Hyperlipidemia, unspecified; I10 Essential (primary) hypertension; E03.9 Hypothyroidism, unspecified; E66.9 Obesity, unspecified; Z68.31 Body mass index [BMI] 31.0-31.9, adult; Z87.891 Personal history of nicotine dependence; M16.0 Bilateral primary osteoarthritis of hip; M85.80 Other specified disorders of bone density and structure, unspecified site; E89.2 Postprocedural hypoparathyroidism
CPT/HCPCS: 36415; 36416; 80048; 80053; 82962; 87635; 93005; 99285; 70450; 70551; 81003; 81015; 83735; 85025; 93010; 93306; 93880; 99239; J3490

== ENCOUNTER 2022-11-01 16:57 | Outpatient (RCR) | payer BC, SELFPAY | END 2022-11-24 23:59 | disposition home or self-care (01) | LOC: RT 16:57 | PROVIDERS: PCP Nurse Practitioner Family; Visit Provider Nurse Practitioner Family | DX: I63.9 Cerebral infarction, unspecified | CPT/HCPCS: 93270 ==

== ENCOUNTER 2022-11-15 01:25 | Outpatient (CLI) | payer BC, SELFPAY ==
[2022-11-15 13:01] LABS: Hemoglobin A1C 5.6 % (<5.7)
[2022-11-15 13:32] LABS: Calculated LDL 81 mg/dL (<100); Cholesterol 169 mg/dL (<200); HDL Cholesterol 73 mg/dL (40-60); Triglyceride 76 mg/dL (<150)
== END 2022-11-15 01:26 | disposition home or self-care (01) ==
LOC: LOS 01:26
PROVIDERS: PCP Nurse Practitioner Family; Visit Provider Psychiatry & Neurology Neurology
DX: R63.8 Other symptoms and signs concerning food and fluid intake (principal); R73.9 Hyperglycemia, unspecified
CPT/HCPCS: 36415; 80061; 83036

== ENCOUNTER 2022-12-05 07:23 | Outpatient (CLI) | payer BC, SELFPAY ==
--- NOTE | 2022-12-05 09:09 | W.CARDEVENT ---
Date of service: 12/05/22 Time of Service: 09:09 Cardiac Event Recorder Referring Provider:: Hang Elam Indications:: Visual disturbance Cardiac Event Note: This is a traffic monitor specialist ordered for visual disturbance Patient was monitored for 10 days Rhythm throughout was sinus with an average heart rate of 66. Minimum was 57, maximum 106 No significant atrial or ventricular dysrhythmias were recorded
== END 2022-12-05 07:24 | disposition home or self-care (01) ==
LOC: CARDOPNVT 07:23
PROVIDERS: PCP Nurse Practitioner Family; Visit Provider Internal Medicine Cardiovascular Disease
DX: H53.9 Unspecified visual disturbance (principal)

== ENCOUNTER 2022-12-27 01:22 | Outpatient (CLI) | payer BC, SELFPAY ==
[2022-12-27 13:15] LABS: ALT 27 U/L (14-59); AST 18 U/L (15-37); Albumin 3.6 g/dL (3.4-5.0); Alkaline Phosphatase 92 U/L (46-116); Anion Gap 8.6 mmol/L (3-11); BUN 11 mg/dL (7-18); Bilirubin, Total 0.4 mg/dL (0.2-1.0); CO2 27.4 mmol/L (21.0-32.0); CREATININE 0.7 mg/dL (0.55-1.02); Calcium 9.1 mg/dL (8.5-10.1); Calculated LDL 81 mg/dL (<100); Chloride 102 mmol/L (98-107); Cholesterol 166 mg/dL (<200); Estimated GFR 84.17 (mL/min/1.73m2); Glucose 112 mg/dL (74-106); HDL Cholesterol 69 mg/dL (40-60); Potassium 4.3 mmol/L (3.5-5.1); Sodium 138 mmol/L (136-145); Total Protein 7.1 g/dL (6.4-8.2); Triglyceride 81 mg/dL (<150)
== END 2022-12-27 01:23 | disposition home or self-care (01) ==
LOC: LOS 01:23
PROVIDERS: PCP Nurse Practitioner Family; Visit Provider Nurse Practitioner Family
DX: E78.5 Hyperlipidemia, unspecified (principal)
CPT/HCPCS: 36415; 80053; 80061

== ENCOUNTER 2023-08-19 14:53 | Outpatient (REF) | payer BC, SELFPAY ==
[2023-08-19 13:35] LABS: TSH (W/Ref FT4) 4.07 uIU/mL (0.36-3.74)
[2023-08-19 14:37] LABS: FREE T4 1.57 ng/dL (0.76-1.46)
== END 2023-08-19 14:54 | disposition home or self-care (01) ==
LOC: LBN 14:53
PROVIDERS: PCP Nurse Practitioner Family; Visit Provider Nurse Practitioner Family
DX: E03.9 Hypothyroidism, unspecified (principal)
CPT/HCPCS: 84439; 84443

== ENCOUNTER 2023-09-30 03:18 | Outpatient (CLI) | payer BC, SELFPAY | END 2023-09-30 03:19 | disposition home or self-care (01) | LOC: LOS 03:18 | PROVIDERS: PCP Nurse Practitioner Family; Visit Provider Nurse Practitioner Family | DX: E21.3 Hyperparathyroidism, unspecified (principal); E03.9 Hypothyroidism, unspecified | CPT/HCPCS: 36415; 84443 ==

== ENCOUNTER 2024-05-05 14:27 | Emergency (ER) | payer BC, SELFPAY ==
[2024-05-05 14:28] VITALS: BP 146/61; PULSE 70; RESP 16; O2SAT 99
--- NOTE | 2024-05-05 14:30 | DI.RAD_ITS ---
Exam(s) XR HUMERUS RT EXAM: XR HUMERUS RT CLINICAL HISTORY: fall from standing prox/mid hum pain. TECHNIQUE: 2D digital imaging was performed. COMPARISON: CR XR FOREARM RT from 05/05/2024 FINDINGS: BONES: Spiral fracture through upper 3rd of humeral shaft with severe medial and anterior displacemen t as well as angulation. No bony destructive lesion is seen. Visualized portion of shoulder is unrem arkable. SOFT TISSUE: Normal. IMPRESSION: Displaced and angulated spiral fracture of upper humeral shaft. DATA REPOSITORY: RADIATION DOSE DELIVERED:
--- NOTE | 2024-05-05 14:30 | DI.RAD_ITS ---
Exam(s) XR FOREARM RT EXAM: XR FOREARM RT CLINICAL HISTORY: mid forearm pain from fall. TECHNIQUE: 2D digital imaging was performed. Two views. COMPARISON: DX DEXA BONE DENSITY WITH DENNIS from 11/17/2012 CR XR HUMERUS RT from 05/05/2024 FINDINGS: BONES: No acute fracture is present. No bony destructive lesion is seen. Visualized portion of elbow is unremarkable. Severe degenerative changes at the 1st carpal metacarpal joint. SOFT TISSUE: Normal. IMPRESSION: No acute abnormality in the left forearm. DATA REPOSITORY: RADIATION DOSE DELIVERED:
--- NOTE | 2024-05-05 14:39 | ED.GENADUL_ITS ---
Discharge Plan Disposition Patient Disposition: Home Condition: Improving Discharge Details Clinical Impression: Fracture of shaft of humerus Primary Care Provider: Hang Rene ED Provider: Joel Rivas Home Meds and New Rx's Prescriptions: No Action atorvastatin 20 mg tablet 40 mg PO DAILY Qty: 180 4RF clopidogrel 75 mg tablet 75 mg PO DAILY Qty: 90 3RF levothyroxine 100 mcg tablet 100 mcg PO DAILY Qty: 90 4RF losartan 50 mg tablet 100 mg PO DAILY Qty: 180 3RF Rx Instructions: [facility] metoprolol tartrate 50 mg tablet 50 mg PO BID Qty: 180 4RF amlodipine 5 mg tablet See Rx Instructions PO BID Qty: 270 4RF Rx Instructions: 10 mg po qam and 5 mg po qpm orally twice a day; acetaminophen [Tylenol Extra Strength] 500 MG tablet 500 mg PO DAILY Patient Comments: 12/01/15 only takes one PRN. LR Discharge Instructions Instructions: Upper Arm Fracture Additional Instructions: Continue to tighten upper extremity splint at home to keep it snug, make sure that padding below the splint is sticking out to protect your skin, follow-up closely with Dr. Foss of orthopedic surgery next week. Please return to the emergency department for any worsening symptoms. Continue with ibuprofen acetaminophen and rest at home for pain HPI General Date/Time Provider Initiated Documentation: 05/05/24 14:32 . HPI Narrative: 89-year-old female presents brought in by EMS after mechanical fall from standing tripped on a stair at ground-level fell on her right arm, pain to right arm, no head injury no chest or abdominal injury no loss of consciousness. Related Data Home Medications ?Medication ?Instructions ?Recorded ?Confirmed acetaminophen 500 mg tablet 500 mg PO DAILY 02/07/14 05/05/24 (Tylenol Extra Strength) amlodipine 5 mg tablet See Rx Instructions PO BID #270 02/17/24 05/05/24 tabs atorvastatin 20 mg tablet 40 mg (2 x 20 mg) PO DAILY #180 02/17/24 05/05/24 tabs clopidogrel 75 mg tablet 75 mg PO DAILY #90 tabs 02/17/24 05/05/24 levothyroxine 100 mcg tablet 100 mcg PO DAILY #90 tabs 02/17/24 05/05/24 losartan 50 mg tablet 100 mg (2 x 50 mg) PO DAILY #180 02/17/24 05/05/24 tab-caps metoprolol tartrate 50 mg tablet 50 mg PO BID #180 tab-caps 02/17/24 05/05/24 Previous Rx's ?Medication ?Instructions ?Recorded amlodipine 5 mg tablet See Rx Instructions PO BID #270 02/17/24 tabs atorvastatin 20 mg tablet 40 mg (2 x 20 mg) PO DAILY #180 02/17/24 tabs clopidogrel 75 mg tablet 75 mg PO DAILY #90 tabs 02/17/24 levothyroxine 100 mcg tablet 100 mcg PO DAILY #90 tabs 02/17/24 losartan 50 mg tablet 100 mg (2 x 50 mg) PO DAILY #180 02/17/24 tab-caps metoprolol tartrate 50 mg tablet 50 mg PO BID #180 tab-caps 02/17/24 Allergies Allergy/AdvReac Type Severity Reaction Status Date / Time lisinopril AdvReac Severe Suicidal Unverified 05/05/24 14:39 Ideation General Stated Complaint: Orthopedic ESPINOZA: 4 Exam Narrative Exam Narrative: Alert interactive no acute distress No cranial facial trauma noted Normal speech tolerating secretions Normal respiratory effort Right arm held in sling in adduction at side, point tenderness to mid humerus without step-off crepitus or deformity, point tenderness over mid forearm without step-off crepitus or deformity, soft compartments warm well-perfused extremity radial pulse intact median radial and ulnar sensory nerve distribution intact full strength fingers hand wrist elbow range of motion at shoulder limited by discomfort and arm. No thoracoabdominal trauma noted No pelvic trauma noted Alert oriented cranial nerves intact 5-5 strength upper lower extremities bilaterally normal sensation ambulatory without ataxia Course Vital Signs Vital signs: Vital Signs Pulse 70 05/05/24 14:28 Respiratory Rate 16 05/05/24 14:28 Blood Pressure 146/61 H 05/05/24 14:28 Pulse Oximetry 99 05/05/24 14:28 Pulse 70 05/05/24 14:28 Respiratory Rate 16 05/05/24 14:28 Blood Pressure 146/61 H 05/05/24 14:28 Blood Pressure Position Sitting 05/05/24 14:28 Pulse Oximetry 99 05/05/24 14:28 Pain Level 5 05/05/24 14:28 Medical Decision Making 89-year-old female presents after mechanical fall from standing onto her right arm, pain to mid humerus and mid forearm on right, neurovascular exam intact hemodynamically stable neurologically intact without deficit, no cranial facial thoracic or abdominal trauma noted. High clinical suspicion for proximal humerus fracture lower suspicion for dislocation, muscles consider contusion; trial of analgesia ice immobilization; x-ray humerus x-ray forearm. 16: 29 was able to speak with Dr. Foss of orthopedic surgery, Dr. Foss, over to the department with a humeral cuff which we have applied at bedside as well as a sling, will repeat x-ray, patient remains neurovascularly intact, plan will be to have patient follow-up with Dr. Foss in the office will progressively tighten cuff as an outpatient to attempt to heal nonoperatively 16: 42 anatomical alignment of humerus greatly improved after application of shoulder cuff splints. Patient's arm remains neurovascularly intact with strong radial pulse good capillary refill in median radial and ulnar nerve distribution motor and sensory examination intact. Patient to follow-up next week with Dr. Foss. Family is coming to pick her up Quality:SDOH Health Related Social Needs: No Data to Display PFSH All Active Problems (Updated 05/05/24 @ 16:30 by Joel Rivas MD) Fracture of shaft of humerus (Acute) Fracture of humeral shaft, right, closed (Acute 05/05/24) Obesity (Chronic) a. Stage I. 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 Edwards,[facility] Hypothyroidism (Acute 03/08/13) Osteopenia (Acute) Osteoarthritis, hip, bilateral (Acute) glucosamine Vision, loss, sudden (Acute) left eye 10/27/22 Acute CVA (cerebrovascular accident) (Acute) CRAO (central retinal artery occlusion) (Acute) Medical History End of life care Advanced directives. Patient completed her advance directives and herCOLST forms. 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 History of tobacco use Fracture of thoracic spine History of hypercalcemia a. With elevate TTH secondary to a benign adenoma now diminished in size. Smoking history a. Quit approximately 50 years ago after 10 pack years. Unstable angina a. Recurrent chest pressure with left arm weakness x 4 - 6 weeks. b. Multiple cardiac risk factors. Surgical History History of cardiac cath (12/17/13) Normal coronaries Thyroid (~2005) BX; RIGHT Skin Cancer Removal 09/07/16 Para-thyroid adenoma surgery (~2014) Cardiac cath (~2013) Family History Mother , age 81 Essential hypertension Hypothyroid Hypertension Heart disease Father , age 71 Diabetes Essential hypertension Heart disease Myocardial infarction Sister Essential hypertension Heart disease Breast cancer Brother , age 83 Essential hypertension Depression Stroke Heart disease Maternal Grandfather , age 39 Pneumonia Heart disease Paternal Grandfather , age 72 Heart disease Alcohol abuse Depression Maternal Grandmother , age 36 Heart disease Pneumonia Paternal Grandmother , age 70 Heart disease Depression Son Essential hypertension Depression Alcohol abuse Son Alcohol abuse Essential hypertension Son , AGE 55 Substance abuse Diabetes Essential hypertension Heart disease Hyperlipidemia Depression Son Essential hypertension Daughter Hypertension Sister No problems noted. Social History Smoking/Tobacco Use Status: Former Tobacco Use tobacco type: cigarettes Quit Date: 07/28/1967 Tobacco: How many years used: 6 Second Hand Exposure: Yes Smoking risk assessment performed?: Yes Alcohol Intake: former Year quit: 2022 Drug use: Never Substance use type: does not use Adopted: No Caregiver/Support person: No Foster care: No Household members: none Housing: apartment Number of Children: 5 number of grandchildren: 7 Communication Needs: None Education Level: college Do you need help understanding health information?: Never current occupation: Retired RN Pets and animals: No Sexually active: No Do you think of yourself as: straight/heterosexual Current gender identity: female What is your relationship status?: How often do you talk on the phone with friends or family?: three or more times per week How often do you get together with friends or relatives?: three or more times per week How often do you attend hindu or buddhist services?: 4 or more times per year Do you belong to any clubs or organized social groups?: yes Panel score (0-1 are the most socially isolated patients): 3 What type of physical activity do you participate in: walking Duration: 45-60 minutes/day Frequency: daily Gayle/Mosque: Confucianism Special gayle needs: No Seatbelt use: always Helmet use: No Drive intox or ride w/intox swing driver: No Firearms in home: No Do you feel safe at home: Yes Victim of physical abuse: No Victim of emotional abuse: No Victim of sexual abuse: No Would you like helpful sources: No
[2024-05-05] MEDS: Acetaminophen 325 MG TAB 650 MG PO (14:46)
--- NOTE | 2024-05-05 15:59 | OCONE_ITS ---
Date of service: 05/05/24 Time of Service: 15:59 Assessment and Plan Assessment and plan (1) Fracture of humeral shaft, right, closed: Status: Acute Assessment and plan: 89-year-old female with widely displaced right humeral shaft fracture Lower energy fall, isolated right arm pain and bony deformity, compartments soft, closed injury, relatively comfortable, intact thumb extension PIN, radial pulse readily palpable, no numbness tingling throughout the right upper extremity. Intact motor median and ulnar nerves as well. Displaced humeral fracture, reduced and placed into Silvestre fracture brace. Reasonable soft tissues for success with bracing especially considering long fracture pattern good surface area for healing. Always challenging given the need for attention to brace, adjust/tighten, and keep proximal instead of falling distal. Reviewed Velcro and brace with patient. Padded sleeve placed underneath the protect skin. Attempted to roll over brace edges. Sling also applied, will transition to cuff and collar in office when available. Patient would prefer nonoperative management. Should have good success given already reasonably well aligned in brace as long as brace can be tolerated. Improvements in comfort expected over the next few weeks, bony healing about 6-8 weeks. Operative management if needed. My office call to arrange follow-up with me next week Reviewed with emergency room physician See instructions below? Nonweightbearing right upper extremity. No reaching, lifting, or carrying. May use hand and fingers lightly. Please ensure fracture brace stay securely on the arm and skin protected/padded with stockinette. The brace will try to travel down the arm onto the elbow/forearm with gravity. It will likely have to be pulled and adjusted up to the shoulder and armpit daily. Also, adjust and tighten the Velcro straps for gentle compression as swelling changes. Use sling when ambulatory, may rest forearm on pillows when resting and take sling off or at least remove strap from around neck Helpful YouTube video https://www.youtube.com/watch?v=6suDpHoUxAc Helpful information https://oapl.com.au/resources/snlbdgl-qnhpibfx-dcmty-w-ndyxp-pgi-patients-no2/ PFSH All Active Problems (Updated 05/05/24 @ 16:30 by Joel Rivas MD) Fracture of shaft of humerus (Acute) Fracture of humeral shaft, right, closed (Acute 05/05/24) Obesity (Chronic) a. Stage I. Arthritis (Acute) Essential hypertension (Acute 09/03/13) Hyperlipidemia (Acute) Hyperparathyroidism, unspecified (Acute 07/13/12) Has seen endo at [facility]- bx, benign (2014 @) 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 Edwards,[facility] Hypothyroidism (Acute 03/08/13) Osteopenia (Acute) Osteoarthritis, hip, bilateral (Acute) glucosamine Vision, loss, sudden (Acute) left eye 10/27/22 Acute CVA (cerebrovascular accident) (Acute) CRAO (central retinal artery occlusion) (Acute) Medical History End of life care Advanced directives. Patient completed her advance directives and herCOLST forms. 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 History of tobacco use Fracture of thoracic spine History of hypercalcemia a. With elevate TTH secondary to a benign adenoma now diminished in size. Smoking history a. Quit approximately 50 years ago after 10 pack years. Unstable angina a. Recurrent chest pressure with left arm weakness x 4 - 6 weeks. b. Multiple cardiac risk factors. Surgical History History of cardiac cath (12/17/13) Normal coronaries Thyroid (~2005) BX; RIGHT Skin Cancer Removal 09/07/16 Para-thyroid adenoma surgery (~2014) Cardiac cath (~2013) Family History Mother , age 81 Essential hypertension Hypothyroid Hypertension Heart disease Father , age 71 Diabetes Essential hypertension Heart disease Myocardial infarction Sister Essential hypertension Heart disease Breast cancer Brother , age 83 Essential hypertension Depression Stroke Heart disease Maternal Grandfather , age 39 Pneumonia Heart disease Paternal Grandfather , age 72 Heart disease Alcohol abuse Depression Maternal Grandmother , age 36 Heart disease Pneumonia Paternal Grandmother , age 70 Heart disease Depression Son Essential hypertension Depression Alcohol abuse Son Alcohol abuse Essential hypertension Son , AGE 55 Substance abuse Diabetes Essential hypertension Heart disease Hyperlipidemia Depression Son Essential hypertension Daughter Hypertension Sister No problems noted. Social History Smoking/Tobacco Use Status: Former Tobacco Use tobacco type: cigarettes Quit Date: 07/28/1967 Tobacco: How many years used: 6 Second Hand Exposure: Yes Smoking risk assessment performed?: Yes Alcohol Intake: former Year quit: 2022 Drug use: Never Substance use type: does not use Adopted: No Caregiver/Support person: No Foster care: No Household members: none Housing: apartment Number of Children: 5 number of grandchildren: 7 Communication Needs: None Education Level: college Do you need help understanding health information?: Never current occupation: Retired RN Pets and animals: No Sexually active: No Do you think of yourself as: straight/heterosexual Current gender identity: female What is your relationship status?: How often do you talk on the phone with friends or family?: three or more times per week How often do you get together with friends or relatives?: three or more times per week How often do you attend quaker or latter day services?: 4 or more times per year Do you belong to any clubs or organized social groups?: yes Panel score (0-1 are the most socially isolated patients): 3 What type of physical activity do you participate in: walking Duration: 45-60 minutes/day Frequency: daily Gayle/Church: Mosque Special gayle needs: No Seatbelt use: always Helmet use: No Drive intox or ride w/intox sulky driver: No Firearms in home: No Do you feel safe at home: Yes Victim of physical abuse: No Victim of emotional abuse: No Victim of sexual abuse: No Would you like helpful sources: No Results Last Vital Signs Pulse 70 05/05/24 14:28 Resp 16 05/05/24 14:28 BP 146/61 H 05/05/24 14:28 Pulse Ox 99 05/05/24 14:28 Labs 05/05/24 15:14 05/05/24 15:14 Labs: Laboratory Results - last 24 hr 05/05/24 15:14 WBC Cancelled RBC Cancelled Hgb Cancelled Hct Cancelled MCV Cancelled MCH Cancelled MCHC Cancelled RDW Cancelled Plt Count Cancelled MPV Cancelled Immature Gran % Cancelled Neutrophils % Cancelled Band Neutrophils % Cancelled Lymphocytes % Cancelled Atypical Lymphs % Cancelled Monocytes % Cancelled Eosinophils % Cancelled Basophils % Cancelled Metamyelocytes % Cancelled Myelocytes % Cancelled Promyelocytes % Cancelled Other Cells % Cancelled Nucleated RBC % Cancelled Absolute Neutrophils Cancelled Absolute Lymphocytes Cancelled Absolute Monocytes Cancelled Absolute Eosinophils Cancelled Absolute Basophils Cancelled RBC Morphology Cancelled Polychromasia Cancelled Hypochromasia Cancelled Poikilocytosis Cancelled Basophilic Stippling Cancelled Anisocytosis Cancelled Microcytosis Cancelled Macrocytosis Cancelled Spherocytes Cancelled Tear Drop Cells Cancelled Ovalocytes Cancelled Stomatocytes Cancelled Rosario-Mathews Bodies Cancelled Jay Em Cells/Echinocytes Cancelled Acanthocytes (Spur) Cancelled Schistocytes Cancelled PT Cancelled INR Cancelled APTT Cancelled Sodium Cancelled Potassium Cancelled Chloride Cancelled Carbon Dioxide Cancelled Anion Gap Cancelled BUN Cancelled Creatinine Cancelled Est GFR (CKD-EPI 2020) Cancelled Glucose Cancelled Calcium Cancelled Total Bilirubin Cancelled AST Cancelled ALT Cancelled Alkaline Phosphatase Cancelled Total Protein Cancelled Albumin Cancelled ABO/Rh Cancelled Antibody Screen Cancelled
[2024-05-05] MEDS: Ketorolac 15 MG/ML VIAL IM (16:00)
--- NOTE | 2024-05-05 16:15 | DI.RAD_ITS ---
Exam(s) XR HUMERUS RT EXAM: XR HUMERUS RT INDICATION: repeat post splint. COMPARISON: No exams were available for comparison TECHNIQUE: 2D digital imaging was performed. Two views. FINDINGS: A splint has been placed. There has been significant improvement in the alignment of the proximal h umeral fracture. DATA REPOSITORY: RADIATION DOSE DELIVERED:
[2024-05-05 17:00] VITALS: BP 178/64; PULSE 74; RESP 16; O2SAT 95
== END 2024-05-05 17:27 | disposition home or self-care (01) ==
PROVIDERS: Emergency Provider Emergency Medicine; PCP Nurse Practitioner Family
DX: S42.341A Displaced spiral fracture of shaft of humerus, right arm, initial encounter for closed fracture (principal); I10 Essential (primary) hypertension; E78.5 Hyperlipidemia, unspecified; Z79.02 Long term (current) use of antithrombotics/antiplatelets; Z86.73 Personal history of transient ischemic attack (TIA), and cerebral infarction without residual deficits; Z87.891 Personal history of nicotine dependence; W01.0XXA Fall on same level from slipping, tripping and stumbling without subsequent striking against object, initial encounter; Y93.01 Activity, walking, marching and hiking; Y92.018 Other place in single-family (private) house as the place of occurrence of the external cause
CPT/HCPCS: 24505; 29105; 80053; 86850; 86900; 86901; 96372; 99284; 73060; 73090; 85025; 85610; 85730; J1885

== ENCOUNTER 2024-05-12 15:18 | Outpatient (CLI) | payer BC, SELFPAY ==
--- NOTE | 2024-05-12 15:00 | DI.RAD_ITS ---
Exam(s) XR HUMERUS RT EXAM: XR HUMERUS RT CLINICAL HISTORY: F/U FRACTURE. TECHNIQUE: 2D digital imaging was performed. COMPARISON: CR XR HUMERUS RT from 05/05/2024 FINDINGS: Two views Again noted is the spiral oblique displaced midshaft fracture of right humerus. There appears to be slight further displacement of the fracture fragments, her, this change may be in part due to differe nces in technique. No osseous lesions evident. Incidentally noted is some vertical height loss in the midthoracic spine , probably not acute IMPRESSION: There appears to be some further is placement of the fracture fragments in the upper-mid shaft of the humerus. DATA REPOSITORY: RADIATION DOSE DELIVERED:
--- NOTE | 2024-05-12 16:00 | DI.RAD_ITS ---
Exam(s) XR HUMERUS RT EXAM: XR HUMERUS RT CLINICAL HISTORY: POST BRACE ADJUSTMENT. TECHNIQUE: 2D digital imaging was performed. COMPARISON: CR XR HUMERUS RT from 05/05/2024 CR XR HUMERUS RT from 05/12/2024 FINDINGS: Two views Again noted is an 8 cm length spiral oblique fracture just above the midshaft of the right humerus. Again there appears to be some further displacement when compared to the images of 05/05/2024. IMPRESSION: As above. DATA REPOSITORY: RADIATION DOSE DELIVERED:
== END 2024-05-12 15:19 | disposition home or self-care (01) ==
PROVIDERS: PCP Nurse Practitioner Family; Visit Provider Student in an Organized Health Care Education/Training Program
DX: S42.341D Displaced spiral fracture of shaft of humerus, right arm, subsequent encounter for fracture with routine healing (principal); X58.XXXD Exposure to other specified factors, subsequent encounter
CPT/HCPCS: 73060

== ENCOUNTER 2024-05-26 13:10 | Outpatient (CLI) | payer BC, SELFPAY ==
--- NOTE | 2024-05-26 12:45 | DI.RAD_ITS ---
Exam(s) XR SHOULDER RT COMPLETE 2+V EXAM: XR SHOULDER RT COMPLETE 2+V CLINICAL HISTORY: F/U FRACTURE. TECHNIQUE: 2D digital imaging was performed. COMPARISON: CR XR HUMERUS RT from 05/12/2024 FINDINGS: Two views Glenohumeral joint appears unremarkable. However, again noted is the previously described spiral obl ique displaced fracture at the midshaft of the humerus. Significant displacement of the fracture fra gments is again noted. IMPRESSION: Displaced fracture of humerus again noted. DATA REPOSITORY: RADIATION DOSE DELIVERED:
--- NOTE | 2024-05-26 13:29 | DI.RAD_ITS ---
Exam(s) XR HUMERUS RT EXAM: XR HUMERUS RT INDICATION: fracture follow up. COMPARISON: CR XR HUMERUS RT from 05/12/2024 TECHNIQUE: 2D digital imaging was performed. Two views. FINDINGS: Exam was performed with a brace in place. There has been no change in the alignment of the upper to mid humeral fracture. DATA REPOSITORY: RADIATION DOSE DELIVERED:
== END 2024-05-26 13:11 | disposition home or self-care (01) ==
LOC: DIORS 05-27 08:01
PROVIDERS: PCP Nurse Practitioner Family; Visit Provider Student in an Organized Health Care Education/Training Program
DX: S42.341D Displaced spiral fracture of shaft of humerus, right arm, subsequent encounter for fracture with routine healing (principal); X58.XXXD Exposure to other specified factors, subsequent encounter
CPT/HCPCS: 73030; 73060

== ENCOUNTER 2024-06-16 15:17 | Outpatient (CLI) | payer BC, SELFPAY ==
--- NOTE | 2024-06-16 13:15 | DI.RAD_ITS ---
Exam(s) XR HUMERUS RT EXAM: XR HUMERUS RT INDICATION: F/U FRACTURE. COMPARISON: CR XR HUMERUS RT from 05/26/2024 TECHNIQUE: 2D digital imaging was performed. Two views. FINDINGS: A splint is in place. There has been no gross interval change in the alignment of the mid humeral fr acture given differences in projection. No new abnormalities are seen. DATA REPOSITORY: RADIATION DOSE DELIVERED:
== END 2024-06-16 15:18 | disposition home or self-care (01) ==
LOC: DIORS 15:17
PROVIDERS: PCP Nurse Practitioner Family; Visit Provider Student in an Organized Health Care Education/Training Program
DX: S42.341D Displaced spiral fracture of shaft of humerus, right arm, subsequent encounter for fracture with routine healing (principal); X58.XXXD Exposure to other specified factors, subsequent encounter
CPT/HCPCS: 73060

== ENCOUNTER 2024-08-03 15:54 | Outpatient (CLI) | payer BC, SELFPAY ==
--- NOTE | 2024-08-03 13:32 | DI.RAD_ITS ---
Exam(s) XR HUMERUS RT EXAM: XR HUMERUS RT CLINICAL HISTORY: F/U FRACTURE. TECHNIQUE: 2D digital imaging was performed of the right humerus. Two images were obtained. AP and transthoracic views were obtained. COMPARISON: CR XR HUMERUS RT from 05/26/2024 FINDINGS: BONES: There is again seen an oblique fracture through the midshaft of the right humerus. When sofia red to prior examinations there does not appear to be any significant change in alignment of the frac ture. No significant bridging callus formation is seen at this time. No bony destructive lesion is seen. Visualized portion of elbow and shoulder joints are unremarkable. SOFT TISSUE: Normal. IMPRESSION: Stable alignment of the humeral fracture. DATA REPOSITORY: RADIATION DOSE DELIVERED:
== END 2024-08-03 15:55 | disposition home or self-care (01) ==
LOC: DIORS 15:54
PROVIDERS: PCP Nurse Practitioner Family; Visit Provider Student in an Organized Health Care Education/Training Program
DX: S42.321D Displaced transverse fracture of shaft of humerus, right arm, subsequent encounter for fracture with routine healing (principal); X58.XXXD Exposure to other specified factors, subsequent encounter
CPT/HCPCS: 73060

== ENCOUNTER 2024-10-20 02:22 | Outpatient (CLI) | payer BC, SELFPAY ==
[2024-10-20 13:07] LABS: ALT 26 U/L (14-59); AST 30 U/L (15-37); Albumin 3.6 g/dL (3.4-5.0); Alkaline Phosphatase 101 U/L (46-116); Anion Gap 7.6 mmol/L (3-11); BUN 15 mg/dL (7-18); Bilirubin, Total 0.6 mg/dL (0.2-1.0); CO2 26.4 mmol/L (21.0-32.0); CREATININE 0.7 mg/dL (0.55-1.02); Calcium 9.6 mg/dL (8.5-10.1); Calculated LDL 76 mg/dL (<100); Chloride 101 mmol/L (98-107); Cholesterol 168 mg/dL (<200); Estimated GFR 83.13 (mL/min/1.73m2); Glucose 103 mg/dL (74-106); HDL Cholesterol 81 mg/dL (>or=50); Potassium 4.7 mmol/L (3.5-5.1); Sodium 135 mmol/L (136-145); TSH (W/Ref FT4) 2.45 uIU/mL (0.36-3.74); Total Protein 7.3 g/dL (6.4-8.2); Triglyceride 56 mg/dL (<150)
== END 2024-10-20 02:23 | disposition home or self-care (01) ==
LOC: LOS 02:23
PROVIDERS: PCP Nurse Practitioner Family; Visit Provider Nurse Practitioner Family
DX: E78.5 Hyperlipidemia, unspecified (principal); E03.9 Hypothyroidism, unspecified
CPT/HCPCS: 36415; 80053; 80061; 84443

== ENCOUNTER 2025-05-13 14:09 | Outpatient (CLI) | payer BC, SELFPAY ==
[2025-05-13 15:59] LABS: Abs Immature Grans 0.02 10^3/uL (0.0-0.06); HCT 30.8 % (36.0-46.0); HGB 10.4 g/dL (11.2-15.7); Immature Grans % 0.2 %; MCH 30.9 pg (27.0-33.0); MCHC 33.8 % (32.0-36.0); MCV 91 fL (80-95); MPV 11.6 fL (8.0-11.0); Platelet Count 337 10^3/uL (130-400); RBC 3.37 10^6/uL (3.93-5.22); RDW 13.2 % (11.7-14.6); RDW-SD 44.2 fL; WBC 9.90 10^3/uL (4.4-10.8)
[2025-05-13 16:08] LABS: ALT 22 U/L (14-59); AST 17 U/L (15-37); Albumin 3.6 g/dL (3.4-5.0); Alkaline Phosphatase 127 U/L (46-116); Anion Gap 9.4 mmol/L (3-11); BUN 14 mg/dL (7-18); Bilirubin, Total 0.3 mg/dL (0.2-1.0); CO2 26.6 mmol/L (21.0-32.0); Calcium 9.2 mg/dL (8.5-10.1); Chloride 94 mmol/L (98-107); Estimated GFR 82.62 (mL/min/1.73m2); Glucose 125 mg/dL (74-106); NT-proBNP 545 pg/mL (<300); Potassium 4.3 mmol/L (3.5-5.1); Sodium 130 mmol/L (136-145); TSH (W/Ref FT4) 5.78 uIU/mL (0.36-3.74); Total Protein 6.7 g/dL (6.4-8.2)
[2025-05-13 16:20] LABS: D-Dimer 2479 ng/mlFEU (<500)
== END 2025-05-13 14:10 | disposition home or self-care (01) ==
LOC: LOS 14:09
PROVIDERS: PCP Nurse Practitioner Family; Visit Provider Nurse Practitioner Family
DX: R06.00 Dyspnea, unspecified (principal)
CPT/HCPCS: 36415; 80053; 83880; 84439; 84443; 85025; 85379

== ENCOUNTER 2025-05-19 04:01 | Outpatient (CLI) | payer BC, SELFPAY ==
--- NOTE | 2025-05-19 07:15 | DI.CT_ITS ---
Exam(s) CT CHEST PE CTA EXAM: CT CHEST PE CTA CLINICAL HISTORY: elevated D-dimer,DYSPNEA,R06.00. TECHNIQUE: Imaging Protocol: Axial CT angiography was performed with multi- slice acquisition and multi-planar and/or 3D reconstructions. Lung Computer Aided Detection (CAD) was utilized. CONTRAST MATERIAL: Intravenous: Omnipaque 350 contrast volume:70 mL COMPARISON: CR CHEST 2 VIEWS PA,LAT from 11/25/2013 CR PORTABLE CHEST ONE VIEW from 12/15/2013 FINDINGS: Tracheobronchial tree: Patent where visualized. No bronchiectasis. There is mild bronchial wall thickening present. Pulmonary parenchyma: There are moderate size bilateral pleural effusions with subjacent infiltrates in the lung bases likely reflecting atelectasis, pneumonia cannot be excluded. No architectural distortion. Pulmonary Arteries: No evidence of filling defect to suggest pulmonary emboli. Mediastinum and Nila: No dominant adenopathy or fluid collection. The esophagus is unremarkable. There is a small hiatal hernia. Visualized thyroid gland: Unremarkable. Pleura: There is no pneumothorax. Heart: Cardiomegaly. Coronary artery calcifications are present. No pericardial effusion. Aorta: Thoracic aorta non-dilated. Atherosclerotic calcification is present. Upper abdomen: Unremarkable. Soft tissues: Unremarkable. Bones: Within normal limits for the patient's age. IMPRESSION: 1. There is no evidence of a pulmonary embolism or thoracic aortic aneurysm. 2. Moderate size bilateral pleural effusions and adjacent infiltrates which may reflect atelectasis or pneumonia. Please correlate clinically. 3. Mild bronchial wall thickening which can be seen with bronchitis. RADIATION DOSE DELIVERED: 118.03mGy.cm Total DLP DATA REPOSITORY: All CT scans at this facility are submitted to the National Radiology Data Registry (NRDR) Dose Index Registry (DIR) with the [employer] (A[employer]). RADIATION OPTIMIZATION: All CT scans at this facility use at least one of these dose optimization techniques: automated exposure control; mA and/or kV adjustment per patient size (includes targeted exams where dose is matched to clinical indication); or iterative reconstruction.
[2025-05-19] MEDS: Omnipaque 350 MG/ML 500 ML BTL-Imaging package IJ (10:21)
[2025-05-19] MEDS: Normal Saline Flush 10 ML SYR IVP (10:21)
[2025-05-19] MEDS: Normal Saline - Diluent 50 ML VIAL IJ (10:21)
== END 2025-05-19 04:21 ==
LOC: DI 04:01
PROVIDERS: PCP Nurse Practitioner Family; Visit Provider Nurse Practitioner Family
DX: R06.00 Dyspnea, unspecified (principal); R91.8 Other nonspecific abnormal finding of lung field
CPT/HCPCS: 71275

== ENCOUNTER 2025-05-20 12:08 | Outpatient (REF) | payer BC, SELFPAY ==
[2025-05-20 14:48] LABS: Anion Gap 9.9 mmol/L (3-11); BUN 10 mg/dL (7-18); CO2 27.1 mmol/L (21.0-32.0); Calcium 9.0 mg/dL (8.5-10.1); Chloride 89 mmol/L (98-107); Estimated GFR 89.60 (mL/min/1.73m2); Glucose 96 mg/dL (74-106); NT-proBNP 650 pg/mL (<300); Potassium 4.1 mmol/L (3.5-5.1); Sodium 126 mmol/L (136-145)
== END 2025-05-20 12:09 | disposition home or self-care (01) ==
LOC: LBN 12:08
PROVIDERS: PCP Nurse Practitioner Family; Visit Provider Nurse Practitioner Family
DX: R06.00 Dyspnea, unspecified (principal); R60.9 Edema, unspecified
CPT/HCPCS: 80048; 83880

== ENCOUNTER 2025-06-03 10:21 | Inpatient (IN) | payer MEDICARE, BC, SELFPAY ==
[2025-06-03] VITALS (33 sets, daily range): BP systolic 130–159; BP diastolic 39–73; PULSE 55–79; RESP 12–24; TEMP 35.4–36.7; O2SAT 92–98
--- NOTE | 2025-06-03 10:15 | RT.EKG_ITS ---
APPROVED REPORT Exam: Resting ECG Reason for Exam: elevated D dimer, dyspnea Patient Location: E HR:62 bpm ECG Measurements Heart Rate 62 AXIS MN 229 P 33 QRSd 98 QRS 31 QT 434 T -2 QTc 441 Conclusion Sinus rhythm...normal P axis, V-rate 60- 99 Prolonged MN interval...MN >220, V-rate 50- 90 No STEMI
--- NOTE | 2025-06-03 10:30 | DI.RAD_ITS ---
Exam(s) XR PORTABLE CHEST AP EXAM: XR PORTABLE CHEST AP CLINICAL HISTORY: dyspnea TECHNIQUE: 2D digital imaging was performed of the chest. One image was obtained. An AP view was obtained. COMPARISON: CR CHEST 2 VIEWS PA,LAT from 11/25/2013 CR PORTABLE CHEST ONE VIEW from 12/15/[address] CHEST PE CTA from 05/19/2025 FINDINGS: MEDIASTINUM: Normal. HEART: Heart size is at the upper limits of normal. PULMONARY VASCULATURE: There is pulmonary venous congestion. LUNGS: There again seen bilateral basilar opacities left greater than right. PLEURAL SPACE: There are persistent bilateral pleural effusions, left greater than right. BONE:Within normal limits for the patient's age. OTHER FINDINGS:Normal. IMPRESSION: 1. Pulmonary venous congestion with bilateral pleural effusions. This may reflect fluid overload/congestive heart failure. Please correlate clinically. 2. Basilar infiltrates may represent atelectasis or pneumonia. DATA REPOSITORY: RADIATION DOSE DELIVERED:
--- NOTE | 2025-06-03 10:51 | W.ED.GENAD ---
Discharge Plan Disposition Patient Disposition: Admit to [facility] Discharge Details Clinical Impression: Heart failure, Hyponatremia Primary Care Provider: Hang Rene ED Provider: Wilbert Butler Home Meds and New Rx's Prescriptions: No Action furosemide [Lasix] 20 mg tablet 20 mg PO DAILY Qty: 60 0RF acetaminophen [Tylenol Extra Strength] 500 MG tablet 500 mg PO DAILY Patient Comments: 12/01/15 only takes one PRN. LR amlodipine 5 mg tablet See Rx Instructions PO BID Qty: 270 4RF Rx Instructions: 10 mg po qam and 5 mg po qpm orally twice a day; atorvastatin 20 mg tablet 40 mg PO DAILY Qty: 180 4RF clopidogrel 75 mg tablet 75 mg PO DAILY Qty: 90 3RF losartan 50 mg tablet 100 mg PO DAILY Qty: 180 3RF Rx Instructions: [facility] levothyroxine 100 mcg tablet 100 mcg PO DAILY Qty: 90 4RF metoprolol tartrate 50 mg tablet 50 mg PO BID Qty: 180 4RF HPI General Date/Time Provider Initiated Documentation: 06/03/25 10:23. HPI Narrative: MDM/Narrative: Initial Assessment: Elderly female with dyspnea, pitting edema, and recent weight gain. History of pneumonia and suspected heart failure. Differential Diagnosis: - Heart failure: Fluid retention, weight gain, dyspnea. Plan: Echocardiogram, IV diuretics. - Pulmonary embolism: Elevated D-dimer, dyspnea. Plan: CT scan to rule out. - Pneumonia: Will obtain chest imaging - Pneumothorax: Will obtain chest imaging - ACS: Doubt given lack of chest pain; however will obtain EKG and troponin ED Course: Shortly after initial evaluation, bedside RN notes that her O2 saturations have dropped to 88 to 89% on room air, patient placed on 1 L via nasal cannula with significant improvement. She also notes she feels much better with supplemental oxygen. Results reviewed: Notable for elevated BMP, severe hyponatremia to 121, otherwise no acute findings. Chest x-ray is also consistent with his CHF pattern. Case discussed with Dr. Murphy the hospitalist who is agreeable to plan for admission. Clinical Impression: Heart failure Disposition: Admission This document was created with assistance from [employer] The patient consented to its use. HPI: The patient, an elderly female, presents with progressively worsening dyspnea over the past few weeks. She reports orthopnea and a persistent cough, which has limited her mobility to the extent that she can only ambulate the length of a room before experiencing discomfort. She denies recent pyrexia or chest pain. The patient discontinued her daily dose of Lasix (40 mg) two days ago due to gastrointestinal side effects. She has a history of fluid retention in the thoracic cavity, initially suspected to be pleural effusion, with subsequent consideration of heart failure. However, a CT scan performed a few weeks ago ruled out congestive heart failure and diagnosed pneumonia. Despite some improvement, she continues to experience a persistent cough and intermittent chills. Physical examination reveals pitting edema in the lower extremities, which are cool to touch. The patient has gained 13 pounds over the past three weeks, contributing to a total weight gain of 24 pounds, and reports worsening dyspnea. PAST SURGICAL HISTORY: The patient underwent cardiac catheterization 10 years ago. ROS: Negative besides as mentioned above Exam: Vital signs: Reviewed. General Appearance: Alert and oriented. No acute distress. HEENT: NCAT, EOMI, not icteric. External ears normal. No rhinorrhea. Moist mucous membranes. Neck: Supple, full range of motion, no observable masses, No meningeal sign. Respiratory: Dyspnea noted. No abnormal lung sounds. Cardiovascular: Bilateral lower extremity pitting edema 2+. Gastrointestinal: Soft, nondistended, No rebound tenderness. Skin: Legs cold to touch. Neurological: Normal Gait, Grossly intact. Psychiatric: Appropriate for situation. Rhythm: NSR Rate: 62 [place]: Normal axis Intervals: Normal intervals Other findings: No acute ST segment or T wave changes to suggest acute ischemia. Labs: [] Radiology: Exam(s) XR PORTABLE CHEST AP EXAM: XR PORTABLE CHEST AP CLINICAL HISTORY: dyspnea TECHNIQUE: 2D digital imaging was performed of the chest. One image was obtained. An AP view was obtained. COMPARISON: CR CHEST 2 VIEWS PA,LAT from 11/25/2013 CR PORTABLE CHEST ONE VIEW from 12/15/[address] CHEST PE CTA from 05/19/2025 FINDINGS: MEDIASTINUM: Normal. HEART: Heart size is at the upper limits of normal. PULMONARY VASCULATURE: There is pulmonary venous congestion. LUNGS: There again seen bilateral basilar opacities left greater than right. PLEURAL SPACE: There are persistent bilateral pleural effusions, left greater than right. BONE:Within normal limits for the patient's age. OTHER FINDINGS:Normal. IMPRESSION: 1. Pulmonary venous congestion with bilateral pleural effusions. This may reflect fluid overload/congestive heart failure. Please correlate clinically. 2. Basilar infiltrates may represent atelectasis or pneumonia. Related Data Home Medications Medication Instructions Recorded Confirmed acetaminophen 500 mg tablet 500 mg PO DAILY 02/07/14 06/03/25 (Tylenol Extra Strength) amlodipine 5 mg tablet See Rx Instructions PO BID #270 03/11/25 06/03/25 tabs atorvastatin 20 mg tablet 40 mg (2 x 20 mg) PO DAILY #180 03/11/25 06/03/25 tabs clopidogrel 75 mg tablet 75 mg PO DAILY #90 tabs 03/11/25 06/03/25 levothyroxine 100 mcg tablet 100 mcg PO DAILY #90 tabs 03/11/25 06/03/25 losartan 50 mg tablet 100 mg (2 x 50 mg) PO DAILY #180 03/11/25 06/03/25 tab-caps metoprolol tartrate 50 mg tablet 50 mg PO BID #180 tab-caps 03/11/25 06/03/25 furosemide 20 mg tablet (Lasix) 20 mg PO DAILY #60 tabs 05/13/25 06/03/25 Previous Rx's Medication Instructions Recorded amlodipine 5 mg tablet See Rx Instructions PO BID #270 03/11/25 tabs atorvastatin 20 mg tablet 40 mg (2 x 20 mg) PO DAILY #180 03/11/25 tabs clopidogrel 75 mg tablet 75 mg PO DAILY #90 tabs 03/11/25 levothyroxine 100 mcg tablet 100 mcg PO DAILY #90 tabs 03/11/25 losartan 50 mg tablet 100 mg (2 x 50 mg) PO DAILY #180 03/11/25 tab-caps metoprolol tartrate 50 mg tablet 50 mg PO BID #180 tab-caps 03/11/25 furosemide 20 mg tablet (Lasix) 20 mg PO DAILY #60 tabs 05/13/25 Allergies Allergy/AdvReac Type Severity Reaction Status Date / Time lisinopril AdvReac Severe Suicidal Unverified 06/03/25 10:26 Ideation General Stated Complaint: SOB ESPINOZA: 3 Course Vital Signs Vital signs: Vital Signs Temperature 36.6 C 06/03/25 10:24 Pulse 67 06/03/25 10:24 Respiratory Rate 18 06/03/25 10:24 Blood Pressure 142/73 H 06/03/25 10:24 Pulse Oximetry 95 06/03/25 10:24 Temperature 36.6 C 06/03/25 10:37 Pulse 66 06/03/25 10:40 Pulse 66 06/03/25 10:40 Respiratory Rate 22 06/03/25 10:40 Blood Pressure 159/48 H 06/03/25 10:37 Blood Pressure Mean 90 06/03/25 10:37 Pulse Oximetry 95 06/03/25 10:40 Pain Level 0 06/03/25 10:37 PFSH All Active Problems (Updated 06/03/25 @ 12:29 by Wilbert Butler MD) Hyponatremia (Acute) Heart failure (Acute) Edema (Acute) Dyspnea (Acute) Weight gain (Acute) Fracture of humeral shaft, right, closed (Acute 05/05/24) Obesity (Chronic) a. Stage I. 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 Edwards,[facility] [place] Hypothyroidism (Acute 03/08/13) Osteopenia (Acute) Osteoarthritis, hip, bilateral (Acute) glucosamine Vision, loss, sudden (Acute) left eye 10/27/22 CRAO (central retinal artery occlusion) (Acute) Medical History (Updated 06/03/25 @ 12:29 by Wilbert Butler MD) Acute CVA (cerebrovascular accident) End of life care Advanced directives. Patient completed her advance directives and herCOLST forms. 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 History of tobacco use Fracture of thoracic spine History of hypercalcemia a. With elevate TTH secondary to a benign adenoma now diminished in size. Smoking history a. Quit approximately 50 years ago after 10 pack years. Unstable angina a. Recurrent chest pressure with left arm weakness x 4 - 6 weeks. b. Multiple cardiac risk factors. Surgical History History of cardiac cath (12/17/13) Normal coronaries Thyroid (~2005) BX; RIGHT Skin Cancer Removal 09/07/16 Para-thyroid adenoma surgery (~2014) Cardiac cath (~2013) Family History Mother , age 81 Essential hypertension Hypothyroid Hypertension Heart disease Father , age 71 Diabetes Essential hypertension Heart disease Myocardial infarction Sister Essential hypertension Heart disease Breast cancer Brother , age 83 Essential hypertension Depression Stroke Heart disease Maternal Grandfather , age 39 Pneumonia Heart disease Paternal Grandfather , age 72 Heart disease Alcohol abuse Depression Maternal Grandmother , age 36 Heart disease Pneumonia Paternal Grandmother , age 70 Heart disease Depression Son Essential hypertension Depression Alcohol abuse Son Alcohol abuse Essential hypertension Son , AGE 55 Substance abuse Diabetes Essential hypertension Heart disease Hyperlipidemia Depression Son Essential hypertension Daughter Hypertension Sister No problems noted. Social History (Updated 11/12/24 @ 12:31 by Jocelyn Martell) Smoking/Tobacco Use Status: Former Tobacco Use tobacco type: cigarettes Quit Date: 07/28/1967 Tobacco: How many years used: 10 Quit status: quit date established Second Hand Exposure: Yes Smoking risk assessment performed?: Yes Alcohol Intake: current Alcohol Intake frequency: holidays/special occasions only Previous attempts at quittin Drug use: Never Substance use type: does not use Counseling given: No Adopted: No Caregiver/Support person: No Foster care: No Household members: none Housing: other Details: mobile home Number of Children: 5 number of grandchildren: 7 Communication Needs: None Education Level: college Do you need help understanding health information?: Never current occupation: Retired RN Pets and animals: No Sexually active: No Do you think of yourself as: straight/heterosexual Current gender identity: female What is your relationship status?: How often do you talk on the phone with friends or family?: three or more times per week How often do you get together with friends or relatives?: twice per week How often do you attend temple or denominational services?: 1-3 times per year Do you belong to any clubs or organized social groups?: no Panel score (0-1 are the most socially isolated patients): 1 What type of physical activity do you participate in: walking Duration: 15-30 minutes/day Frequency: 5-6 times per week Gayle/Mormon: Islam Special gayle needs: No Agree to transfusion: Yes Seatbelt use: always Helmet use: No Drive intox or ride w/intox furniture mover driver: No Working smoke detector in home: Yes Carbon monox detector in home: Yes Firearms in home: No Do you feel safe at home: Yes Victim of physical abuse: No Victim of emotional abuse: No Victim of sexual abuse: No Would you like helpful sources: No POCUS Exam (ED) Limited Cardiac Exam DATE OF EXAM: 06/03/25 TIME OF EXAM: 10:56 PROVIDER THAT PERFORMED THE STUDY: Wilbert Butler IS THIS A REPEAT EXAM DURING THIS ENCOUNTER: no REASON FOR EXAM: Dyspnea VISUALIZED STRUCTURES: Four Chambers, Left atrium, Left ventricle, LVOT, Right atrium, Right ventricle, Aortic valve, Mitral valve and Interventricular septum VIEW OBTAINED: Apical 4-Chamber, Parasternal long-axis, Parasternal short-axis and Subxiphoid PERTINENT FINDINGS/IMPRESSION: No pericardial effusion and No RV dilation INCIDENTAL FINDINGS: B-lines noted through visualized lung salguero bilaterally Exam complete
[2025-06-03 11:12] LABS: Abs Immature Grans 0.04 10^3/uL (0.0-0.06); HCT 28.0 % (36.0-46.0); HGB 9.9 g/dL (11.2-15.7); Immature Grans % 0.4 %; MCH 31.0 pg (27.0-33.0); MCHC 35.4 % (32.0-36.0); MCV 88 fL (80-95); MPV 11.6 fL (8.0-11.0); Platelet Count 242 10^3/uL (130-400); RBC 3.19 10^6/uL (3.93-5.22); RDW 12.7 % (11.7-14.6); RDW-SD 41.1 fL; WBC 9.77 10^3/uL (4.4-10.8)
[2025-06-03 11:35] LABS: ALT 20 U/L (14-59); AST 18 U/L (15-37); Albumin 3.4 g/dL (3.4-5.0); Alkaline Phosphatase 104 U/L (46-116); Anion Gap 8.0 mmol/L (3-11); BUN 9 mg/dL (7-18); Bilirubin, Total 0.6 mg/dL (0.2-1.0); CO2 26.0 mmol/L (21.0-32.0); Calcium 8.8 mg/dL (8.5-10.1); Chloride 87 mmol/L (98-107); Glucose 128 mg/dL (74-106); Magnesium 1.5 mg/dL (1.8-2.4); Potassium 3.5 mmol/L (3.5-5.1); Total Protein 6.7 g/dL (6.4-8.2); Troponin I 9 ng/L (<or=51)
[2025-06-03 11:36] LABS: Sodium 121 mmol/L (136-145)
--- NOTE | 2025-06-03 12:00 | DI.US_ITS ---
APPROVED REPORT EXAM: Comprehensive 2D, Doppler, and color-flow Echocardiogram Patient Location: In-Patient Room/Bed: 208 Academic Support Assistant: Cindy Doyle RDCS (AE) Indications: ? exacerbation of CHF Other Information Study Quality: Adequate. Technically limited study due to exam done bedside. Conclusion Normal left ventricular wall thickness and chamber size. Ejection fraction is 60%. Wall motion is normal Normal right ventricular size and function Severely dilated left atrium. Moderate right atrial enlargement Aortic valve is sclerotic and trileaflet without stenosis or regurgitation Mild to moderate mitral and tricuspid regurgitation Estimated right ventricular systolic pressure is 65 mmHg Wall motion Left Ventricle The left ventricle is normal size. The left ventricular systolic function is normal. The left ventricular ejection fraction is within the normal range. There is normal left ventricular wall thickness. There is normal LV segmental wall motion. There is no ventricular septal defect visualized. LVEF is 60%. Right Ventricle The right ventricle is normal size. The right ventricular systolic function is normal. Atria Left atrium is severely dilated. Right atrium is moderately dilated. The interatrial septum is intact with no evidence for an atrial septal defect. Aortic Valve The Aortic valve is sclerotic. Aortic valve is trileaflet. No hemodynamically significant valvular aortic stenosis. No aortic regurgitation is present. Mitral Valve Mild mitral annular calcification. No evidence of mitral valve stenosis. Mild to moderate mitral regurgitation. Tricuspid Valve The tricuspid valve is normal in structure. There is no tricuspid valve stenosis. Mild to moderate tricuspid regurgitation. The RVSP is 64.8 mmHg. Pulmonic Valve The pulmonary valve is normal in structure. There is no pulmonic valvular stenosis. Trace pulmonic regurgitation. Great Vessels The aortic root is normal in size. The ascending aorta is normal in size. Aortic arch is not well visualized. IVC is normal in size and collapses >50% with inspiration. Pericardium There is no pericardial effusion. 2D Dimensions IVSD d PLAX 1.04 cm F: 0.6-1.0 Ao Root d 2.71 cm F: 2.7 - 3.3 LVPW d PLAX 1.00 cm F: 0.6 - 1.0 Ao Asc Diam d 2.95 cm F: 2.3 - 3.1 LVID d PLAX 4.40 cm F: 3.8 - 5.2 LVDs 3.00 cm F: 2.2 - 3.5 LV EF Teichholz 59.7 % FS 31.50 % LV EDV (Teich) 85.7 mL LV ESV (Teich) 34.6 mL M-Mode TAPSE 2.88 cm (M/F) >1.7 Auto EF LV EDV A4C 103.3 mL LV EDV A2C 122.0 mL LV EDV BP 111.3 mL LV ESV A4C 43.6 mL LV ESV A2C 50.6 mL LV ESV BP 47.7 mL LVEF(%) A4C 57.8 % LVEF(%) A2C 58.5 % LVEF(%) BP 57.2 % LV SV A4C 59.8 ml LV SV A2C 71.4 ml LV SV BP 63.6 ml LV CO A4C 4.0 L/min LV CO A2C 4.7 L/min LV CO BP 4.4 L/min HR A4C 67.64 BPM HR A2C 66.42 BPM LV EDV Index (BP) LA Volume LA Length A4C 6.4 cm LA Length A2C 6.7 cm LA Area A4C s 29.23 cm2 LA Area A2C s 32.50 cm2 LA Vol A4C A-L 113.95 mL LA Vol A2C A-L 133.61 mL LA Vol Biplane A-L 126.7 mL LA Vol/BSA A4C A-L LA Vol/BSA A2C A-L LA Vol/BSA BP A-L 69.6 mL/m2 LA Vol A4C MOD 106.5 mL LA Vol A2C MOD 124.6 mL LA Vol BP MOD 118.0 mL RA Volume RA Area A4C 17.5 cm2 RA ESV A4C (A-L) 48.5mL RA Vol/BSA A4C A-L RA Length A4C 5.4 cm RA ESV A4C (MOD) 45.4mL LV Diastology MV E' medial 0.103 (>0.07 m/s) MV E Vmax 1.04 (0.4-1.3 m/s) MV E/E' MED 10.16 (<14) MV A Vmax 0.75 (0.4-1.3 m/s) MV E' lateral 0.103 (>0.1 m/s) E/A Ratio 1.4 MV E/E' LAT 10.16 (<14) MV E' Average 0.103 m/s MV E/E'(average) 10.16 Aortic Valve AoV Vmax 2.07 m/s LVOT Vmax 1.10 m/s AoV Peak Grad 17.1 mmHg LVOT Peak Grad 4.8 mmHg AoV Area (Vmax) 1.47 cm2 LVOT VTI 0.328 m AoV VTI 0.569 m LVOT Mean Grad 2.8 mmHg AoV Mean Agus. 1.42 m/s LVOT SV 90.74 mL AoV Mean Grad 9.2 mmHg LVOT Diam s 1.85 cm AoV Area (VTI) 1.60 cm2 AV Regurg Peak Gr. 17.14 mmHg Velocity Ratio 0.53 Mitral Valve MV DT 229 (160-240 msec) MV Vmax TIPS 1.11 m/s MV Mean Grad 1.9 (<2mmHg) MV VTI 0.322 m Pulmonary Valve PV Vmax 1.30 (0.5-1.5 m/s) RVOT Vmax 1.10 m/s PV Peak Grad 6.7 mmHg RVOT Peak Gr. 4.8 mmHg PV Mean Agus 1.01 m/s RVOT VTI 0.243 m PV Mean Grad 4.4 mmHg RVOT Mean Gr. 2.7 mmHg Tricuspid Valve RA Pressure 8.00 mmHg TR Vmax 3.77 m/s TV S' 0.15 m/s TR Peak Grad 56.7 mmHg RVSP (TR) 64.8 mmHg
[2025-06-03] MEDS: Furosemide 40 MG/4 ML VIAL IVP ×2 (12:19→16:30)
[2025-06-03 12:27] LABS: Troponin I 12 ng/L (<or=51)
--- NOTE | 2025-06-03 12:28 | HPE_ITS ---
Date of service: 06/03/25 Time of Service: 12:30 Assessment and Plan Assessment and plan (1) Heart failure: Status: Acute Assessment and plan: -new diagnosis, acute exacerbation, BNP 591 -will continue to diurese with lasix (40 mg IV given initially), adjust as needed for symptomatic mgmt -monitor close I+O -echo significant for LVEF 60%, severely dilated LA, sclerosis of aortic valve, mild/moderate mitral and tricuspid regurgitation (2) Hyponatremia: Status: Acute Assessment and plan: -moderate asymptomatic hypervolemic hyponatremia related to above -acute worsening of chronic condition -continue close monitoring with BMPs (Na 121 > 122) -correct as needed (3) Essential hypertension: Status: Acute Assessment and plan: -continue to monitor BP -continue metoprolol; losartan and amlodipine held while actively diuresing History of Present Illness Narrative: Zane is an 89 year old female with history of HTN, HLD, hypothyroidism, CVA (October 2022, not residual deficits), and chronic hyponatremia who presented to the ED today for evaluation of progressively worsening dyspnea with exertion over the last few weeks. Recently diagnosed with PNA, but reports she does not feel improved, continues to have persistent cough. She was recently prescribed diuretics (2 weeks ago) and had been taking daily until 2 days ago (stopped d/t stomach upset), however has recently gained 13 lbs in fluid weight (says she feels puffy all over, especially to face, hands, and legs). Denies associated fever, dizziness, sore throat, congestion, chest pain, vomiting, abdominal pain, change in bowel or bladder function. Admits to occasional palpitations (feeling her heart flutter), at rest. While in the ED, she was diagnosed with new onset CHF with new O2 requirement (88-89% on RA, improved with 1 L O2 via NC). POCUS notable for +B lines throughout, CXR showed basilar infiltrates (PNA vs atelectasis) and bilateral pleural efusions with pulmonary venous congestion c/w CHF. EKG NSR, rate 61, no changes c/w acute ischemia. Electrolyte imbalances noted, including worsening of chronic hyponatremia (121 today, 131 at baseline) and hypomagnesemia (1.5). CBC notable for mild anemia (9.9, 28.0), no leukocytosis or thrombocytopenia. BNP elevated at 591. Troponins flat (9, 12). Received 40 mg IV lasix in ED prior to arrival to floor. Zane is resting comfortably, O2 cannula in place. Reports she is able to breathe ok at rest, including while laying flat. PFSH All Active Problems (Updated 06/03/25 @ 12:29 by Wilbert Butler MD) Hyponatremia (Acute) Heart failure (Acute) Edema (Acute) Dyspnea (Acute) Weight gain (Acute) Fracture of humeral shaft, right, closed (Acute 05/05/24) Obesity (Chronic) a. Stage I. 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 Edwards,[facility] [place] Hypothyroidism (Acute 03/08/13) Osteopenia (Acute) Osteoarthritis, hip, bilateral (Acute) glucosamine Vision, loss, sudden (Acute) left eye 10/27/22 CRAO (central retinal artery occlusion) (Acute) Medical History (Updated 06/03/25 @ 12:29 by Wilbert Butler MD) Acute CVA (cerebrovascular accident) End of life care Advanced directives. Patient completed her advance directives and herCOLST forms. 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 History of tobacco use Fracture of thoracic spine History of hypercalcemia a. With elevate TTH secondary to a benign adenoma now diminished in size. Smoking history a. Quit approximately 50 years ago after 10 pack years. Unstable angina a. Recurrent chest pressure with left arm weakness x 4 - 6 weeks. b. Multiple cardiac risk factors. Surgical History History of cardiac cath (12/17/13) Normal coronaries Thyroid (~2005) BX; RIGHT Skin Cancer Removal 09/07/16 Para-thyroid adenoma surgery (~2014) Cardiac cath (~2013) Family History Mother , age 81 Essential hypertension Hypothyroid Hypertension Heart disease Father , age 71 Diabetes Essential hypertension Heart disease Myocardial infarction Sister Essential hypertension Heart disease Breast cancer Brother , age 83 Essential hypertension Depression Stroke Heart disease Maternal Grandfather , age 39 Pneumonia Heart disease Paternal Grandfather , age 72 Heart disease Alcohol abuse Depression Maternal Grandmother , age 36 Heart disease Pneumonia Paternal Grandmother , age 70 Heart disease Depression Son Essential hypertension Depression Alcohol abuse Son Alcohol abuse Essential hypertension Son , AGE 55 Substance abuse Diabetes Essential hypertension Heart disease Hyperlipidemia Depression Son Essential hypertension Daughter Hypertension Sister No problems noted. Social History (Updated 11/12/24 @ 12:31 by Jocelyn Martell) Smoking/Tobacco Use Status: Former Tobacco Use tobacco type: cigarettes Quit Date: 07/28/1967 Tobacco: How many years used: 10 Quit status: quit date established Second Hand Exposure: Yes Smoking risk assessment performed?: Yes Alcohol Intake: current Alcohol Intake frequency: holidays/special occasions only Previous attempts at quittin Drug use: Never Substance use type: does not use Counseling given: No Adopted: No Caregiver/Support person: No Foster care: No Household members: none Housing: house Number of Children: 5 number of grandchildren: 7 Communication Needs: None Education Level: college Do you need help understanding health information?: Never current occupation: Retired RN Pets and animals: No Sexually active: No Do you think of yourself as: straight/heterosexual Current gender identity: female What is your relationship status?: How often do you talk on the phone with friends or family?: three or more times per week How often do you get together with friends or relatives?: twice per week How often do you attend amish or mu-ism services?: 1-3 times per year Do you belong to any clubs or organized social groups?: no Panel score (0-1 are the most socially isolated patients): 1 What type of physical activity do you participate in: walking Duration: 15-30 minutes/day Frequency: 5-6 times per week Gayle/Quaker: Jain Special gayle needs: No Agree to transfusion: Yes Seatbelt use: always Helmet use: No Drive intox or ride w/intox freight delivery driver: No Working smoke detector in home: Yes Carbon monox detector in home: Yes Firearms in home: No Do you feel safe at home: Yes Victim of physical abuse: No Victim of emotional abuse: No Victim of sexual abuse: No Would you like helpful sources: No Meds Allergies and Home Medications Allergies Allergy/AdvReac Type Severity Reaction Status Date / Time lisinopril AdvReac Severe Suicidal Unverified 06/03/25 10:26 Ideation Home Medications Medication Instructions Recorded Confirmed Type acetaminophen 500 mg tablet 500 mg PO DAILY 02/07/14 1 08/03/24 History (Tylenol Extra Strength) amlodipine 5 mg tablet See Rx Instructions PO BID # 270 03/11/25 06/03/25 Rx tabs atorvastatin 20 mg tablet 40 mg (2 x 20 mg) PO DAILY # 180 03/11/25 06/03/25 Rx tabs clopidogrel 75 mg tablet 75 mg PO DAILY #90 tabs 02/2506/03/25 Rx levothyroxine 100 mcg tablet 100 mcg PO DAILY #90 tabs 03/11/25 06/03/25 Rx losartan 50 mg tablet 100 mg (2 x 50 mg) PO DAILY #180 03/11/25 06/03/25 Rx tab-caps metoprolol tartrate 50 mg tablet 50 mg PO BID #180 tab -caps 03/11/25 06/03/25 Rx furosemide 20 mg tablet (Lasix) 20 mg PO DAILY #60 tab s 05/13/25 06/03/25 Rx Exam Const General: cooperative and no acute distress Nutritional Appearance: overweight and edematous Orientation: alert and oriented x3 Resp Effort & Inspection: normal respiratory effort and able to speak in complete sentences Auscultation: rales bilaterally Cardio Rate: regular rate Rhythm: regular rhythm Heart Sounds: murmur Pulses: radial pulses present and dorsalis pedis present GI Inspection: normal to inspection, non-distended and obesity Palpation: soft, no guarding and nontender Extrem General: pedal edema bilaterally Results Imaging Imaging Studies: EXAM: Comprehensive 2D, Doppler, and color-flow Echocardiogram Patient Location: In-Patient Room/Bed: [facility] [place] Production Dispatcher: Cindy Doyle RDCS (AE) Indications: ? exacerbation of CHF Other Information Study Quality: Adequate. Technically limited study due to exam done bedside. Conclusion Normal left ventricular wall thickness and chamber size. Ejection fraction is 60%. Wall motion is normal Normal right ventricular size and function Severely dilated left atrium. Moderate right atrial enlargement Aortic valve is sclerotic and trileaflet without stenosis or regurgitation Mild to moderate mitral and tricuspid regurgitation Estimated right ventricular systolic pressure is 65 mmHg Wall motion Left Ventricle The left ventricle is normal size. The left ventricular systolic function is normal. The left ventricular ejection fraction is within the normal range. There is normal left ventricular wall thickness. There is normal LV segmental wall motion. There is no ventricular septal defect visualized. LVEF is 60%. Right Ventricle The right ventricle is normal size. The right ventricular systolic function is normal. Atria Left atrium is severely dilated. Right atrium is moderately dilated. The interatrial septum is intact with no evidence for an atrial septal defect. Aortic Valve The Aortic valve is sclerotic. Aortic valve is trileaflet. No hemodynamically significant valvular aortic stenosis. No aortic regurgitation is present. Mitral Valve Mild mitral annular calcification. No evidence of mitral valve stenosis. Mild to moderate mitral regurgitation. Tricuspid Valve The tricuspid valve is normal in structure. There is no tricuspid valve stenosis. Mild to moderate tricuspid regurgitation. The RVSP is 64.8 mmHg. Pulmonic Valve The pulmonary valve is normal in structure. There is no pulmonic valvular stenosis. Trace pulmonic regurgitation. Great Vessels The aortic root is normal in size. The ascending aorta is normal in size. Aortic arch is not well visualized. IVC is normal in size and collapses >50% with inspiration. Pericardium There is no pericardial effusion. Labs 06/04/25 05:13 06/04/25 05:13 Labs: Laboratory Results - last 24 hr 06/03/25 11:02 WBC 9.77 RBC 3.19 L Hgb 9.9 L Hct 28.0 L MCV 88 MCH 31.0 MCHC 35.4 RDW 12.7 Plt Count 242 MPV 11.6 H Immature Gran % 0.4 Neutrophils % 84.0 Lymphocytes % 7.7 Monocytes % 7.3 Eosinophils % 0.4 Basophils % 0.2 Nucleated RBC % 0.0 Absolute Neutrophils 8.21 H Absolute Lymphocytes 0.75 L Absolute Monocytes 0.71 Absolute Eosinophils 0.04 Absolute Basophils 0.02 VBG Lactate 1.7 Sodium 121 L* Potassium 3.5 Chloride 87 L Carbon Dioxide 26.0 Anion Gap 8.0 BUN 9 Creatinine 0.5 L Est GFR (CKD-EPI 2020) 89.60 Glucose 128 H Calcium 8.8 Magnesium 1.5 L Total Bilirubin 0.6 AST 18 ALT 20 Alkaline Phosphatase 104 Troponin I 9 NT-Pro-B Natriuret Pep 591 H Total Protein 6.7 Albumin 3.4 Last Vital Signs Temp 98 F 06/03/25 10:37 Pulse 55 L 11/07/25 12:01 Resp 13 06/03/25 11:50 BP 130/51 L 06/03/25 12:01 Pulse Ox 97 06/03/25 12:01 Time Spent Time spent with Patient: >75 minutes Time was spent: preparing to see the patient(eg.review tests), obtaining and/or reviewing separately otained hiistory, ordering medications,tests, procedures, referring, communicating with other health healthcare applications analyst, indepentently interpreting results, counseling the patient and care coordination
[2025-06-03 12:52] LABS: TSH 4.27 uIU/mL (0.36-3.74)
--- NOTE | 2025-06-03 14:10 | PHA.REVIEW2 ---
Pharmacy Admission Review Admission Clinical Review Admission Pharmacy Review: Hyponatremia (Acute) Heart failure (Acute) Essential hypertension (Acute 09/03/13) lisinopril Adverse Reaction (Severe, Unverified 06/03/25 10:26) Suicidal Ideation Resuscitation Status DNR/DNI Height 4 ft 11 in Weight 87.997 kg Pharmacy Admission Review Renal Dosing Renal Dosing: BUN 9 mg/dL (7-18) 06/03/25 11:02 Creatinine 0.5 mg/dL (0.55-1.02) L 06/03/25 11:02 Medications needing adjustments: Reviewed (CrCl 34.58 mL/min) List of meds needing interventions: Current medications are okay Anticoagulation Anticoagulation: Hgb 9.9 g/dL (11.2-15.7) L 06/03/25 11:02 Hct 28.0 % (36.0-46.0) L 06/03/25 11:02 Plt Count 242 10^3/uL (130-400) 06/03/25 11:02 Creatinine 0.5 mg/dL (0.55-1.02) L 06/03/25 11:02 DVT Prophylaxis: Reviewed Medications: Enoxaparin (40mg daily) Relevant Labs Relevant Labs: Sodium 121 mmol/L (136-145) L* 06/03/25 11:02 Potassium 3.5 mmol/L (3.5-5.1) 06/03/25 11:02 Chloride 87 mmol/L (98-107) L 06/03/25 11:02 Magnesium 1.5 mg/dL (1.8-2.4) L 06/03/25 11:02 Electrolytes, C-Reactive P, ESR: Reviewed (Repeat labs pending, no electrolyte replacement ordered at this time) Cardiac Review Cardiac Review: Troponin I 12 ng/L (<or=51) 06/03/25 12:00 NT-Pro-B Natriuret Pep 591 pg/mL (<300) H 06/03/25 11:02 Blood Pressure 152/52 1402 Blood Pressure 151/57 1246 Blood Pressure 142/62 1231 Blood Pressure 152/50 1216 Blood Pressure 130/51 1201 Blood Pressure 130/40 1145 Blood Pressure 140/39 1130 Blood Pressure 138/44 1116 Blood Pressure 152/47 1102 Blood Pressure 159/48 1037 Blood Pressure 142/73 1037 Blood Pressure 142/73 1024 BP, HR, EF%: Reviewed (HR WNL, oxygen flow rate = 2) List meds needing interventions: Has orders for furosemide 40mg IVP BID and metoprolol 50mg BID QTc Review QTc: Reviewed (EKG report pending) IV to PO Switch IV Medications: Reviewed (furosemide) Home Meds Home Med List reviewed: Intervened Relevent Home Meds Not ordered & why?: acetaminophen (PRN), amlodipine (confirmed with provider - on hold), and losartan (on hold per H+P) Current Meds Current Medication Order Review: Intervened Comments: Added IV admission order set
[2025-06-03 14:52] LABS: Glucose Negative (Negative)
[2025-06-03 15:05] LABS: C & S Indicated? No; RBC Negative HPF (0-2)
--- NOTE | 2025-06-03 16:24 | W.PC.ACHO ---
Registration Status: ADM IN Primary Language: Preferred Language: Croatian ED Information & Data Chief Complaint SOB 06/03/25 10:54 Triage Note pt with c/o sob onset 8 06/03/25 10:24 weeks ago becoming progressively worse with some fluid retention noted pt states she gained 13lbs in 3 weeks Medical / Surgical History (Last Updated 11/08/24 @ 14:00 by Hang Elam NP) Acute CVA (cerebrovascular accident) End of life care History of tobacco use Fracture of thoracic spine History of hypercalcemia Smoking history Unstable angina (Last Reviewed 11/08/24 @ 13:59 by Hang Elam NP) History of cardiac cath (12/17/13) Thyroid (~2005) Skin Cancer Removal Para-thyroid adenoma surgery (~2014) Cardiac cath (~2013) Most Recent Vital Signs Temperature 35.4 C L 06/03/25 15:25 Temperature Source Temporal Artery Scan 06/03/25 15:25 Pulse 64 06/03/25 15:25 Pulse Rhythm Regular 06/03/25 15:12 Pulse 59 L 06/03/25 12:46 Respiratory Rate 18 06/03/25 15:25 Respiratory Effort Short of Breath 06/03/25 15:12 Respiratory Depth Normal 06/03/25 15:12 Respiratory Pattern Normal 06/03/25 15:12 Blood Pressure 147/51 H 06/03/25 15:25 Blood Pressure Mean 83 06/03/25 15:25 Pulse Oximetry 98 06/03/25 15:25 Respiratory End-tidal CO2 35 06/03/25 12:46 Oxygen Delivery Method Nasal Cannula 06/03/25 15:25 Oxygen Flow Rate 2 06/03/25 15:25 Pain Level 0 06/03/25 10:37 Allergies lisinopril Adverse Reaction (Severe, Unverified 06/03/25 10:26) Suicidal Ideation IV IV Catheter Type [Left Saline Lock Antecubital] IV Catheter Gauge [Left 18 Antecubital] Diet Orders Category Date Time Status Heart Healthy Eating [DIET] Nutrition 06/03/25 Dinner Active Diagnostics 06/03/25 06/03/25 06/03/25 Range/Units 17:00 14:04 12:00 WBC (4.4-10.8) 10^3/uL RBC (3.93-5.22) 10^6/uL Hgb (11.2-15.7) g/dL Hct (36.0-46.0) % MCV (80-95) fL MCH (27.0-33.0) pg MCHC (32.0-36.0) % RDW (11.7-14.6) % Plt Count (130-400) 10^3/uL MPV (8.0-11.0) fL Immature Gran % % Neutrophils % % Lymphocytes % % Monocytes % % Eosinophils % % Basophils % % Nucleated RBC % (0.0-0.3) % Absolute Neutrophils (1.2-6.7) 10^3/uL Absolute Lymphocytes (1.2-3.4) 10^3/uL Absolute Monocytes (0.1-0.8) 10^3/uL Absolute Eosinophils (0.0-0.7) 10^3/uL Absolute Basophils (0.0-0.2) 10^3/uL VBG Lactate (<or=2.0) mmol/L Sodium Pending (136-145) mmol/L Potassium Pending (3.5-5.1) mmol/L Chloride Pending (98-107) mmol/L Carbon Dioxide Pending (21.0-32.0) mmol/L Anion Gap Pending (3-11) mmol/L BUN Pending (7-18) mg/dL Creatinine Pending (0.55-1.02) mg/dL Est GFR (CKD-EPI 2020) Pending (mL/min/1.73m2) Glucose Pending (74-106) mg/dL Calcium Pending (8.5-10.1) mg/dL Magnesium (1.8-2.4) mg/dL Total Bilirubin (0.2-1.0) mg/dL AST (15-37) U/L ALT (14-59) U/L Alkaline Phosphatase (46-116) U/L Troponin I 12 (<or=51) ng/L NT-Pro-B Natriuret Pep (<300) pg/mL Total Protein (6.4-8.2) g/dL Albumin (3.4-5.0) g/dL TSH (0.36-3.74) uIU/mL Urine Color Yellow (Yellow) Urine Clarity Clear (Clear) Urine pH 5.5 (5-8) Ur Specific [place] 1.010 (1.005-1.025) Urine Protein Negative (Neg-Trace) mg/dL Urine Ketones Negative (Negative) mg/dL Urine Blood Negative (Negative) Urine Nitrite Negative (Negative) Urine Bilirubin Negative (Negative) Urine Urobilinogen 0.2 (Up to 0.2) mg/dL Ur Leukocyte Esterase Small H (Negative) Urine RBC Negative (0-2) HPF Urine WBC 3-5 (0-5) HPF Ur Epithelial Cells Few (Negative) HPF Urine Crystals Negative (Negative) HPF Urine Bacteria Few (Negative) HPF Urine Casts Negative (Negative) LPF Urine Mucus Negative (Negative) Urine Other Negative (Negative) Ur Culture Indicated? No Urine Glucose Negative (Negative) mg/dL 06/03/25 Range/Units 11:02 WBC 9.77 (4.4-10.8) 10^3/uL RBC 3.19 L (3.93-5.22) 10^6/uL Hgb 9.9 L (11.2-15.7) g/dL Hct 28.0 L (36.0-46.0) % MCV 88 (80-95) fL MCH 31.0 (27.0-33.0) pg MCHC 35.4 (32.0-36.0) % RDW 12.7 (11.7-14.6) % Plt Count 242 (130-400) 10^3/uL MPV 11.6 H (8.0-11.0) fL Immature Gran % 0.4 % Neutrophils % 84.0 % Lymphocytes % 7.7 % Monocytes % 7.3 % Eosinophils % 0.4 % Basophils % 0.2 % Nucleated RBC % 0.0 (0.0-0.3) % Absolute Neutrophils 8.21 H (1.2-6.7) 10^3/uL Absolute Lymphocytes 0.75 L (1.2-3.4) 10^3/uL Absolute Monocytes 0.71 (0.1-0.8) 10^3/uL Absolute Eosinophils 0.04 (0.0-0.7) 10^3/uL Absolute Basophils 0.02 (0.0-0.2) 10^3/uL VBG Lactate 1.7 (<or=2.0) mmol/L Sodium 121 L* (136-145) mmol/L Potassium 3.5 (3.5-5.1) mmol/L Chloride 87 L (98-107) mmol/L Carbon Dioxide 26.0 (21.0-32.0) mmol/L Anion Gap 8.0 (3-11) mmol/L BUN 9 (7-18) mg/dL Creatinine 0.5 L (0.55-1.02) mg/dL Est GFR (CKD-EPI 2020) 89.60 (mL/min/1.73m2) Glucose 128 H (74-106) mg/dL Calcium 8.8 (8.5-10.1) mg/dL Magnesium 1.5 L (1.8-2.4) mg/dL Total Bilirubin 0.6 (0.2-1.0) mg/dL AST 18 (15-37) U/L ALT 20 (14-59) U/L Alkaline Phosphatase 104 (46-116) U/L Troponin I 9 (<or=51) ng/L NT-Pro-B Natriuret Pep 591 H (<300) pg/mL Total Protein 6.7 (6.4-8.2) g/dL Albumin 3.4 (3.4-5.0) g/dL TSH 4.27 H (0.36-3.74) uIU/mL Urine Color (Yellow) Urine Clarity (Clear) Urine pH (5-8) Ur Specific [place] (1.005-1.025) Urine Protein (Neg-Trace) mg/dL Urine Ketones (Negative) mg/dL Urine Blood (Negative) Urine Nitrite (Negative) Urine Bilirubin (Negative) Urine Urobilinogen (Up to 0.2) mg/dL Ur Leukocyte Esterase (Negative) Urine RBC (0-2) HPF Urine WBC (0-5) HPF Ur Epithelial Cells (Negative) HPF Urine Crystals (Negative) HPF Urine Bacteria (Negative) HPF Urine Casts (Negative) LPF Urine Mucus (Negative) Urine Other (Negative) Ur Culture Indicated? Urine Glucose (Negative) mg/dL Intake and Output - 24 Hour Total 06/03/25 10:21 thru 06/03/25 16:11 Intake Total 10 Output Total 500 Balance -490 Weight 87.997 kg Intake: IV 10 Output: Urine 500 Other: Urine Color Yellow Urine Appearance Clear Urine Odor None Falls Risk Assessment History of Falls No History 06/03/25 15:12 Contributing Factors Impairments 06/03/25 15:12 Ambulatory Aids Uses ambulatory device 06/03/25 15:12 Tubes/Lines W/no contributing factors 06/03/25 15:12 Gait Evaluation W/no contributing factors 06/03/25 15:12 Cognition No cognitive impairment 06/03/25 10:40 Fall Total Score 38 06/03/25 15:12 Level of Risk Moderate Risk 06/03/25 15:12 Problems (Last Updated 11/08/24 @ 14:00 by Hang Elam NP) Hyponatremia (Acute) Heart failure (Acute) Essential hypertension (Acute 09/03/13) Attestation Statement: By documenting the first initial, last name, and credentials of the reporting nurse below, both parties acknowledge that all relevant information regarding the patient handoff has been communicated, and that all questions have been addressed to ensure continuity and safety of care. Additional Patient Information/Comments: Pt was brought to floor via stretcher and settled into room by RESOURCE SPECIALIST TEACHER. Pt was oriented to room and call light was left within reach. Bed alarms activated and walker available in room Report Received From:
[2025-06-03] MEDS: Normal Saline Flush 10 ML SYR IVP ×2 (16:31→21:07)
[2025-06-03 17:46] LABS: Anion Gap 9.9 mmol/L (3-11); BUN 8 mg/dL (7-18); CO2 26.1 mmol/L (21.0-32.0); Calcium 8.4 mg/dL (8.5-10.1); Chloride 86 mmol/L (98-107); Glucose 131 mg/dL (74-106); Potassium 3.4 mmol/L (3.5-5.1)
[2025-06-03 17:48] LABS: Sodium 122 mmol/L (136-145)
[2025-06-03] MEDS: Metoprolol 50 MG TAB PO (21:06)
[2025-06-03] MEDS: Potassium Chloride 20 MEQ TABCR 40 MEQ PO (23:46)
[2025-06-03] MEDS: Magnesium Oxide 400 MG TAB PO (23:48)
[2025-06-04] VITALS (8 sets, daily range): BP systolic 133–148; BP diastolic 51–61; PULSE 56–65; RESP 16–17; TEMP 35.9–36.6; O2SAT 91–95
--- NOTE | 2025-06-04 | DI.CT_ITS ---
Exam(s) CT CHEST PE CTA EXAM: CT CHEST PE CTA CLINICAL HISTORY: hypoxic, elevated d-dimer. TECHNIQUE: Imaging Protocol: Axial CT angiography was performed with multi- slice acquisition and multi-planar and/or 3D reconstructions. Lung Computer Aided Detection (CAD) was utilized. CONTRAST MATERIAL: Intravenous: Omnipaque 350 contrast volume:80 mL COMPARISON: CT CT CHEST PE CTA from 05/19/2025 CR XR PORTABLE CHEST AP from 06/03/2025 FINDINGS: Tracheobronchial tree: Patent where visualized. No bronchiectasis. Pulmonary parenchyma: There has been an interval increase in size of the bilateral pleural effusions and subjacent bilateral lower lobe infiltrates since 05/19/2025. There are also new infiltrate seen in the upper lobes. Pulmonary Arteries: No evidence of filling defect to suggest pulmonary emboli. Mediastinum and Nila: No dominant adenopathy or fluid collection. The esophagus is unremarkable. There is a small hiatal hernia. Visualized thyroid gland: Unremarkable. Pleura: There is no pneumothorax. Heart: The heart is mildly enlarged. Mild coronary artery calcification is present. No pericardial effusion. Aorta: Thoracic aorta non-dilated. Atherosclerotic calcification is present. Upper abdomen: There are left renal cysts again seen. No follow-up is recommended. Soft tissues: Unremarkable. Bones: There is stable alignment of the patient's known right humeral fracture. IMPRESSION: 1. There is no evidence of a pulmonary embolism. 2. Interval increase in size of the bilateral pleural effusions and bilateral pulmonary infiltrates since 05/19/2025. RADIATION DOSE DELIVERED: 297.17mGy.cm Total DLP DATA REPOSITORY: All CT scans at this facility are submitted to the National Radiology Data Registry (NRDR) Dose Index Registry (DIR) with the [employer] (ACR). RADIATION OPTIMIZATION: All CT scans at this facility use at least one of these dose optimization techniques: automated exposure control; mA and/or kV adjustment per patient size (includes targeted exams where dose is matched to clinical indication); or iterative reconstruction.
[2025-06-04 06:08] LABS: HCT 29.9 % (36.0-46.0); HGB 10.6 g/dL (11.2-15.7); MCH 30.8 pg (27.0-33.0); MCHC 35.5 % (32.0-36.0); MCV 87 fL (80-95); MPV 11.9 fL (8.0-11.0); Platelet Count 233 10^3/uL (130-400); RBC 3.44 10^6/uL (3.93-5.22); RDW 12.8 % (11.7-14.6); RDW-SD 40.6 fL; WBC 7.98 10^3/uL (4.4-10.8)
[2025-06-04 06:18] LABS: Anion Gap 6.3 mmol/L (3-11); BUN 7 mg/dL (7-18); CO2 28.7 mmol/L (21.0-32.0); Calcium 8.4 mg/dL (8.5-10.1); Chloride 87 mmol/L (98-107); Glucose 84 mg/dL (74-106); Magnesium 1.5 mg/dL (1.8-2.4); Potassium 4.0 mmol/L (3.5-5.1)
[2025-06-04 06:22] LABS: Sodium 122 mmol/L (136-145)
[2025-06-04] MEDS: Clopidogrel 75 MG TAB PO (07:40)
[2025-06-04] MEDS: Metoprolol 50 MG TAB PO ×2 (07:40→20:02)
[2025-06-04] MEDS: Levothyroxine 100 MCG TAB PO (07:40)
[2025-06-04] MEDS: Atorvastatin 20 MG TAB 40 MG PO (07:40)
[2025-06-04] MEDS: Furosemide 40 MG/4 ML VIAL IVP ×2 (07:40→16:07)
[2025-06-04] MEDS: Enoxaparin 40 MG/0.4 ML SYR SC (07:41)
[2025-06-04] MEDS: Normal Saline Flush 10 ML SYR IVP ×4 (07:41→20:03)
--- NOTE | 2025-06-04 08:03 | PDOC.CMIN ---
Date of service: 06/04/25 Time of Service: 15:16 Care Management Initial Assmt Initial Assessment Reason for Hospitalization: Acute exacerbation of CHF, Acute hypoxic resp failure Functional Status/Living Situation Patient Presentation: CM met with Zane at bedside. She was awake, alert, and sitting up in bed at the time of the visit. She presented to the ED with progressively worsening dyspnea over the past few weeks (see ED documentation). On admission, she required supplemental oxygen but is now maintaining oxygen saturation on room air. She will be evaluated by PT. Zane was pleasant and engaged appropriately in conversation. She resides alone in a mobile home in [place], a living arrangement she moved into approximately six months ago after previously residing in an in-law apartment attached to her son Chip’s home. Zane has four children—three living nearby and one who is . She reports being independent with ADLs and drives into town as she feels able. Her children assist with transportation to medical appointments and with grocery shopping. Zane does not currently have home health services but is agreeable to resuming these at the time of discharge. CM will continue to follow for discharge planning and coordination of services. Town of Residence: [place] Resides with: Child (In law apartment attached to her sons home) Significant Other/Family: Local Natural Supports: family Employment Status: Retired (Nurse) Instrumental Activities of Daily Living (ADLs): Independent Medications Medication Management: No Issues/Barriers identified Physical Functioning/Mobility Assistive Device: FWW Advance Directives Advance Directives: Do you have an Advance Directive: Y 11/16/13, 13:37 AD On File at [facility]: Y 10/12/13, 15:22 Date Asked 11/08/22 06/03/25, 10:28 AD Date Reviewed 06/03/25 06/03/25, 10:28 COLST On File at [facility] Yes 05/05/24, 14:37 COLST Date Scanned 11/08/22 06/03/25, 10:28 Code Status Resuscitation Status DNR/DNI Portal Pt does not currently have a portal and education provided: Yes Insurance Coverage/Financial Issues Insurance: Medicare Part A Only - [id number] /[facility] - [id number] Care Team Visit Care Team Role Provider Type Hang Elam NP Primary Care Provider NURSE PRACTITIONER Wilbert Butler MD Emergency Provider [facility] STAFF PHYSICIAN Willian Murphy MD Admit Provider [facility] STAFF PHYSICIAN Attending Provider Discharge Potential Discharge Needs: PT Evaluation and PCP F/U Appt Anticipated Barriers to Discharge: None Identified Patient/Family Education Needs: Review discharge instructions, discuss Ask Me Three Transportation: Private vehicle Plan: Zane will be discharged home once medcially ready. PT consult requested. It will be recommended she follow up with her community providers and continue per her discharge plan of care. She will likely transport via private vehicle. CM will follow. Social Determinants of Health Screening Social Determinants of health last assessed in clinic: 06/04/25 Will the Patient Participate in the Screening?: Yes Do you worry about having a steady place to live?: no Problems where you live: no known problems In the past 12 months, have you had to go without electric, gas, oil or water in your home?: no 1. Within the past 12 months, we worried whether our food would run out before we got money to buy more.: Never true 2. Within the past 12 months, the food we bought just didn't last and we didn't have money to get more.: Never true Has lack of transportation kept you from medical appointments or from doing things needed for daily living?: no Has anyone in your life made you feel unsafe or unsupported?: no How hard is it for you to pay for the very basics like food, housing, medical care, and heating? Would you say it is:: Not hard at all Do you want help finding or keeping work or a job?: I do not need or want help If for any reason you need help with day-to-day activities such as bathing, preparing meals, shopping, managing finances, etc., do you get the help you need?: I don’t need any help How often do you feel lonely or isolated from those around you?: Never Do you speak a language other than Yoruba at home?: No Does the patient want assistance with any of the above?: No PFSH All Active Problems (Updated 06/04/25 @ 09:39 by Willian Murphy MD) CAD (coronary artery disease) (Chronic) Hyponatremia (Acute) Heart failure (Acute) Edema (Acute) Dyspnea (Acute) Weight gain (Acute) Fracture of humeral shaft, right, closed (Acute 05/05/24) Obesity (Chronic) a. Stage I. Arthritis (Acute) Essential hypertension (Acute 09/03/13) Hyperlipidemia (Acute) Hyperparathyroidism, unspecified (Acute 07/13/12) [place] [facility], [place] (2014 @) 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 Edwards[place] Hypothyroidism (Acute 03/08/13) Osteopenia (Acute) Osteoarthritis, hip, bilateral (Acute) glucosamine Vision, loss, sudden (Acute) left eye 10/27/22 CRAO (central retinal artery occlusion) (Acute) Medical History (Updated 06/04/25 @ 09:39 by Willian Murphy MD) Acute CVA (cerebrovascular accident) End of life care Advanced directives. Patient completed her advance directives and herCOLST forms. 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 History of tobacco use Fracture of thoracic spine History of hypercalcemia a. With elevate TTH secondary to a benign adenoma now diminished in size. Smoking history a. Quit approximately 50 years ago after 10 pack years. Unstable angina a. Recurrent chest pressure with left arm weakness x 4 - 6 weeks. b. Multiple cardiac risk factors. Surgical History History of cardiac cath (12/17/13) Normal coronaries Thyroid (~2005) BX; RIGHT Skin Cancer Removal 09/07/16 Para-thyroid adenoma surgery (~2014) Cardiac cath (~2013) Family History Mother , age 81 Essential hypertension Hypothyroid Hypertension Heart disease Father , age 71 Diabetes Essential hypertension Heart disease Myocardial infarction Sister Essential hypertension Heart disease Breast cancer Brother , age 83 Essential hypertension Depression Stroke Heart disease Maternal Grandfather , age 39 Pneumonia Heart disease Paternal Grandfather , age 72 Heart disease Alcohol abuse Depression Maternal Grandmother , age 36 Heart disease Pneumonia Paternal Grandmother , age 70 Heart disease Depression Son Essential hypertension Depression Alcohol abuse Son Alcohol abuse Essential hypertension Son , AGE 55 Substance abuse Diabetes Essential hypertension Heart disease Hyperlipidemia Depression Son Essential hypertension Daughter Hypertension Sister No problems noted. Social History (Updated 11/12/24 @ 12:31 by Jocelyn Stillson) Smoking/Tobacco Use Status: Former Tobacco Use tobacco type: cigarettes Quit Date: 07/28/1967 Tobacco: How many years used: 10 Quit status: quit date established Second Hand Exposure: Yes Smoking risk assessment performed?: Yes Alcohol Intake: current Alcohol Intake frequency: holidays/special occasions only Previous attempts at quittin Drug use: Never Substance use type: does not use Counseling given: No Adopted: No Caregiver/Support person: No Foster care: No Household members: none Housing: house Number of Children: 5 number of grandchildren: 7 Communication Needs: None Education Level: college Do you need help understanding health information?: Never current occupation: Retired RN Pets and animals: No Sexually active: No Do you think of yourself as: straight/heterosexual Current gender identity: female What is your relationship status?: How often do you talk on the phone with friends or family?: three or more times per week How often do you get together with friends or relatives?: twice per week How often do you attend samaritan or hinduism services?: 1-3 times per year Do you belong to any clubs or organized social groups?: no Panel score (0-1 are the most socially isolated patients): 1 What type of physical activity do you participate in: walking Duration: 15-30 minutes/day Frequency: 5-6 times per week Gayle/Mormonism: Voodoo Special gayle needs: No Agree to transfusion: Yes Seatbelt use: always Helmet use: No Drive intox or ride w/intox logging truck driver: No Working smoke detector in home: Yes Carbon monox detector in home: Yes Firearms in home: No Do you feel safe at home: Yes Victim of physical abuse: No Victim of emotional abuse: No Victim of sexual abuse: No Would you like helpful sources: No Readmission Within the Past 30 Days Yes or No: No
[2025-06-04] MEDS: Omnipaque 350 MG/ML 100 ML BTL IJ (08:41)
[2025-06-04] MEDS: Normal Saline - Diluent 50 ML VIAL IJ (08:41)
--- NOTE | 2025-06-04 09:37 | PGE_ITS ---
Date of Service Date of service: 06/04/25 Time of Service: 09:37 Assessment and Plan Assessment and plan (1) Heart failure: Status: Acute Assessment and plan: -new diagnosis of HFpEF, acute exacerbation, BNP 591 -good UOP with 40mg IV lasix BID, will continue -strict I/O's -echo significant for LVEF 60%, severely dilated LA, sclerosis of aortic valve, mild/moderate mitral and tricuspid regurgitation (2) Hyponatremia: Status: Acute Assessment and plan: -moderate asymptomatic hypervolemic hyponatremia related to above -acute worsening of chronic condition -continue close monitoring with BMPs (Na 121 > 122) -f/u PM BMP (3) Essential hypertension: Status: Acute Assessment and plan: -continue to monitor BP -continue metoprolol; losartan and amlodipine held while actively diuresing (4) CAD (coronary artery disease): Status: Chronic Assessment and plan: -continue home plavix, asa, losartan and metoprolol Subjective Subjective Interval history since last seen: Patient states that she is feeling better and has no complaints or concerns at this time. Exam Narrative Exam Narrative: well appearing older female laying in bed in no acute distress, AOx4, heart RRR, lungs CTAB, abdomen soft, non-tender, non-distended, improvement in bilateral LE edema Objective Last Vital Signs Temp 96.6 F L 06/04/25 07:22 Pulse 61 06/04/25 07:22 Resp 17 06/04/25 07:22 BP 133/51 L 06/04/25 07:22 Pulse Ox 95 06/04/25 07:57 Laboratory Results - last 24 hr 06/03/25 06/03/25 06/03/25 11:02 12:00 14:04 WBC 9.77 RBC 3.19 L Hgb 9.9 L Hct 28.0 L MCV 88 MCH 31.0 MCHC 35.4 RDW 12.7 Plt Count 242 MPV 11.6 H Immature Gran % 0.4 Neutrophils % 84.0 Lymphocytes % 7.7 Monocytes % 7.3 Eosinophils % 0.4 Basophils % 0.2 Nucleated RBC % 0.0 Absolute Neutrophils 8.21 H Absolute Lymphocytes 0.75 L Absolute Monocytes 0.71 Absolute Eosinophils 0.04 Absolute Basophils 0.02 VBG Lactate 1.7 Sodium 121 L* Potassium 3.5 Chloride 87 L Carbon Dioxide 26.0 Anion Gap 8.0 BUN 9 Creatinine 0.5 L Est GFR (CKD-EPI 2020) 89.60 Glucose 128 H Calcium 8.8 Magnesium 1.5 L Total Bilirubin 0.6 AST 18 ALT 20 Alkaline Phosphatase 104 Troponin I 9 12 NT-Pro-B Natriuret Pep 591 H Total Protein 6.7 Albumin 3.4 TSH 4.27 H Urine Color Yellow Urine Clarity Clear Urine pH 5.5 Ur Specific [place] 1.010 Urine Protein Negative Urine Ketones Negative Urine Blood Negative Urine Nitrite Negative Urine Bilirubin Negative Urine Urobilinogen 0.2 Ur Leukocyte Esterase Small H Urine RBC Negative Urine WBC 3-5 Ur Epithelial Cells Few Urine Crystals Negative Urine Bacteria Few Urine Casts Negative Urine Mucus Negative Urine Other Negative Ur Culture Indicated? No Urine Glucose Negative 06/03/25 06/04/25 17:26 05:13 WBC 7.98 RBC 3.44 L Hgb 10.6 L Hct 29.9 L MCV 87 MCH 30.8 MCHC 35.5 RDW 12.8 Plt Count 233 MPV 11.9 H Immature Gran % Neutrophils % Lymphocytes % Monocytes % Eosinophils % Basophils % Nucleated RBC % Absolute Neutrophils Absolute Lymphocytes Absolute Monocytes Absolute Eosinophils Absolute Basophils VBG Lactate Sodium 122 L* 122 L* Potassium 3.4 L 4.0 Chloride 86 L 87 L Carbon Dioxide 26.1 28.7 Anion Gap 9.9 6.3 BUN 8 7 Creatinine 0.5 L 0.4 L Est GFR (CKD-EPI 2020) 89.60 94.55 Glucose 131 H 84 Calcium 8.4 L 8.4 L Magnesium 1.5 L Total Bilirubin AST ALT Alkaline Phosphatase Troponin I NT-Pro-B Natriuret Pep Total Protein Albumin TSH Urine Color Urine Clarity Urine pH Ur Specific [place] Urine Protein Urine Ketones Urine Blood Urine Nitrite Urine Bilirubin Urine Urobilinogen Ur Leukocyte Esterase Urine RBC Urine WBC Ur Epithelial Cells Urine Crystals Urine Bacteria Urine Casts Urine Mucus Urine Other Ur Culture Indicated? Urine Glucose Time Spent with Patient Time Spent with Patient: >50 minutes Time was spent: preparing to see the patient(eg.review tests), obtaining and/or reviewing separately otained hiistory, ordering medications,tests, procedures, referring, communicating with other health respite care provider, indepentently interpreting results, counseling the patient and care coordination
[2025-06-04] MEDS: Losartan 50 MG TAB 100 MG PO (11:07)
[2025-06-04 15:23] LABS: Anion Gap 5.6 mmol/L (3-11); BUN 7 mg/dL (7-18); CO2 28.4 mmol/L (21.0-32.0); Calcium 8.3 mg/dL (8.5-10.1); Chloride 86 mmol/L (98-107); Glucose 104 mg/dL (74-106); Potassium 4.0 mmol/L (3.5-5.1)
[2025-06-04 15:25] LABS: Sodium 120 mmol/L (136-145)
[2025-06-04] MEDS: Potassium Chloride 20 MEQ TABCR 40 MEQ PO (20:03)
[2025-06-04] MEDS: Magnesium Oxide 400 MG TAB PO (20:03)
[2025-06-05] VITALS (11 sets, daily range): BP systolic 136–151; BP diastolic 51–68; PULSE 55–66; RESP 16–18; TEMP 36–36.6; O2SAT 92–98
[2025-06-05 05:16] LABS: Anion Gap 5.8 mmol/L (3-11); BUN 6 mg/dL (7-18); CO2 28.2 mmol/L (21.0-32.0); Calcium 7.9 mg/dL (8.5-10.1); Chloride 86 mmol/L (98-107); Glucose 88 mg/dL (74-106); Potassium 4.0 mmol/L (3.5-5.1)
[2025-06-05 05:29] LABS: Sodium 120 mmol/L (136-145)
[2025-06-05] MEDS: Enoxaparin 40 MG/0.4 ML SYR SC (09:33)
[2025-06-05] MEDS: Potassium Chloride 20 MEQ TABCR 40 MEQ PO ×2 (09:33→19:55)
[2025-06-05] MEDS: Atorvastatin 20 MG TAB 40 MG PO (09:33)
[2025-06-05] MEDS: Normal Saline Flush 10 ML SYR IVP ×2 (09:33→19:55)
[2025-06-05] MEDS: Furosemide 40 MG/4 ML VIAL IVP ×2 (09:33→16:38)
[2025-06-05] MEDS: Magnesium Oxide 400 MG TAB PO ×2 (09:34→19:55)
[2025-06-05] MEDS: Losartan 50 MG TAB 100 MG PO (09:34)
[2025-06-05] MEDS: Clopidogrel 75 MG TAB PO (09:34)
[2025-06-05] MEDS: Metoprolol 50 MG TAB PO ×2 (09:34→19:55)
--- NOTE | 2025-06-05 10:16 | W.PM.PROGNOT ---
Date of Service Date of service: 06/05/25 Time of Service: 08:00 Assessment and Plan Assessment and plan (1) Heart failure: Status: Acute Assessment and plan: -new diagnosis of HFpEF, acute exacerbation, BNP 591 -good UOP with 40mg IV lasix BID, will continue -strict I/O's -echo significant for LVEF 60%, severely dilated LA, sclerosis of aortic valve, mild/moderate mitral and tricuspid regurgitation June 05: continue diuresis, will [place] [facility] [place]. Continue VTE ppx enoxaparin. (2) Hyponatremia: Status: Acute Assessment and plan: -moderate asymptomatic hypervolemic hyponatremia related to above -acute worsening of chronic condition -continue close monitoring with BMPs (Na 121 > 122) -f/u PM BMP June 05: Na 120. No intervention at this time, continue to monitor. (3) Essential hypertension: Status: Acute Assessment and plan: -continue to monitor BP -continue metoprolol; losartan and amlodipine held while actively diuresing June 05: continue current management (4) CAD (coronary artery disease): Status: Chronic Assessment and plan: -continue home plavix, asa, losartan and metoprolol Subjective Subjective Interval history since last seen: Ms. Nash is comfortable in bed. Continuing edema with some pulmonary crackles. Exam Narrative Exam Narrative: General: This is a pleasant, elderly woman in no distress HEENT: Normocephalic, atraumatic CV: RRR. 1+ pitting edema BLE Resp: CTAB Abd: soft, NTND MSK: voluntary motion x4 Neuro: awake, alert, no focal deficits Objective Last Vital Signs Temp 36.4 C L 06/05/25 07:18 Pulse 66 06/05/25 09:29 Resp 18 06/05/25 07:18 BP 138/52 L 06/05/25 09:29 Pulse Ox 94 06/05/25 07:43 Laboratory Results - last 24 hr 06/04/25 06/05/25 15:10 05:00 Sodium 120 L* 120 L* Potassium 4.0 4.0 Chloride 86 L 86 L Carbon Dioxide 28.4 28.2 Anion Gap 5.6 5.8 BUN 7 6 L Creatinine 0.5 L 0.4 L Est GFR (CKD-EPI 2020) 89.60 94.55 Glucose 104 88 Calcium 8.3 L 7.9 L Time Spent with Patient Time Spent with Patient: 25-34 minutes Time was spent: preparing to see the patient(eg.review tests), obtaining and/or reviewing separately otained hiistory, ordering medications,tests, procedures, referring, communicating with other health care partner, indepentently interpreting results, counseling the patient and care coordination
[2025-06-05 10:28] LABS: Magnesium 1.6 mg/dL (1.8-2.4)
[2025-06-05] MEDS: Levothyroxine 100 MCG TAB PO (11:29)
--- NOTE | 2025-06-05 16:16 | NUR.NOTE ---
Access chart to reconcile EKG orders with EKG's in [facility]. Duplicate order cancelled. Nursing Note:
[2025-06-06] VITALS (7 sets, daily range): BP systolic 118–154; BP diastolic 49–106; PULSE 57–66; RESP 16–20; TEMP 36–36.9; O2SAT 93–97
[2025-06-06] MEDS: Levothyroxine 100 MCG TAB PO (06:22)
[2025-06-06] MEDS: Normal Saline Flush 10 ML SYR IVP ×2 (09:15→17:39)
[2025-06-06] MEDS: Furosemide 40 MG/4 ML VIAL IVP ×2 (09:15→17:39)
[2025-06-06] MEDS: Losartan 50 MG TAB 100 MG PO (09:22)
[2025-06-06] MEDS: Enoxaparin 40 MG/0.4 ML SYR SC (09:22)
[2025-06-06] MEDS: Potassium Chloride 20 MEQ TABCR 40 MEQ PO ×2 (09:22→20:15)
[2025-06-06] MEDS: Metoprolol 50 MG TAB PO ×2 (09:23→20:15)
[2025-06-06] MEDS: Clopidogrel 75 MG TAB PO (09:23)
[2025-06-06] MEDS: Atorvastatin 20 MG TAB 40 MG PO (09:23)
[2025-06-06] MEDS: Magnesium Oxide 400 MG TAB PO ×2 (09:23→20:15)
--- NOTE | 2025-06-06 11:16 | PDOC.CMDIS ---
Date of service: 06/06/25 Time of Service: 11:16 LACE Index Scoring Tool Questions: Length of Stay (in days): 3 Was the patient admitted via the E.D.?: Yes Comorbidities: Cerebrovascular Disease E.D. Visits: 1 Answers: Total Score: 8 Risk of Readmission: Low Risk Care Management Discharge Plan Reason for Hospitalization: Acute COPD exacerbation Discharge Plan: Zane is being discharged home with [facility] RN/PT/[facility] services and will be transported via private vehicle with family. Patient will follow up with community providers and continue per her discharge plan of care. Patient/Family Education Needs: Review discharge instructions and plan for outpatient follow up. Discuss ask me three. Services Needed at Discharge: Home Health Care Services ([facility] RN/PT/[facility], CM notified [facility] prior to discharge.)
--- NOTE | 2025-06-06 11:22 | W.PM.PROGNOT ---
Date of Service Date of service: 06/06/25 Time of Service: 08:00 Subjective Subjective Interval history since last seen: Zane reports she feels like her breathing has improved with treatment over the past few days, though admits she still does get winded when ambulating to the restroom. Denies accompanying symptoms such as dizziness, chest pain, Objective Last Vital Signs Temp 98.4 F 06/06/25 07:35 Pulse 63 06/06/25 07:35 Resp 17 06/06/25 07:35 BP 141/50 H 06/06/25 07:35 Pulse Ox 97 06/06/25 07:35
--- NOTE | 2025-06-06 11:44 | W.PM.DS.N ---
DS: Diagnosis Discharge Diagnosis (1) Heart failure: Status: Acute (2) Hyponatremia: Status: Acute (3) Essential hypertension: Status: Acute (4) CAD (coronary artery disease): Status: Chronic Discharge Plan Disposition Patient Disposition: Home Condition: Improving Discharge Details Reason For Visit: Acute Exacerbation of CHF,Acute Hypoxic Resp Failu Admit Date/Time: 06/03/25 12:10 Admit Provider: Willian Murphy Attending Provider: Willian Murphy Primary Care Provider: Hang Rene Hospital Course Hospital Course: Zane Nash is an 89 year old woman presenting June 03 with shortness of breath, weight gain and pitting edema, found to be fluid overloaded. Echo showed new severe left atrial dilation. [facility] cardiology advised tighter BP control and initiation of spironolactone. She has responded well to diuresis and her edema has improved. Chronic hyponatremia is at baseline. Patient is safe to return home with home health. Home Meds and New Rx's Prescriptions: No Action furosemide [Lasix] 20 mg tablet 20 mg PO DAILY Qty: 60 0RF acetaminophen [Tylenol Extra Strength] 500 MG tablet 500 mg PO DAILY Patient Comments: 12/01/15 only takes one PRN. LR amlodipine 5 mg tablet See Rx Instructions PO BID Qty: 270 4RF Rx Instructions: 10 mg po qam and 5 mg po qpm orally twice a day; atorvastatin 20 mg tablet 40 mg PO DAILY Qty: 180 4RF clopidogrel 75 mg tablet 75 mg PO DAILY Qty: 90 3RF losartan 50 mg tablet 100 mg PO DAILY Qty: 180 3RF Rx Instructions: [facility] levothyroxine 100 mcg tablet 100 mcg PO DAILY Qty: 90 4RF metoprolol tartrate 50 mg tablet 50 mg PO BID Qty: 180 4RF Discharge Instructions Stand Alone Forms: Portal Information Activity:: Activity as Tolerated Equipment/Supplies:: No Equipment Needed Diet:: As Tolerated Discharge Orders Discharge Orders: Discharge Order (Routine); Ordered 06/06/25 Ordered By: Salvador Guevara DS: Data Vitals/I&O Vitals and I&O: Vital Signs Temperature 36.5 C 06/06/25 11:26 Temperature Source Temporal Artery Scan 06/06/25 11:26 Pulse 57 L 06/06/25 11:26 Pulse Rhythm Regular 06/03/25 15:12 Pulse 59 L 06/03/25 12:46 Respiratory Rate 17 06/06/25 11:26 Respiratory Effort Short of Breath 06/03/25 15:12 Respiratory Depth Normal 06/03/25 15:12 Respiratory Pattern Normal 06/03/25 15:12 Blood Pressure 118/56 L 06/06/25 11:26 Blood Pressure Mean 76 06/06/25 11:26 Pulse Oximetry 95 06/06/25 11:26 Respiratory End-tidal CO2 35 06/03/25 12:46 Oxygen Delivery Method Room Air 06/06/25 11:26 Oxygen Flow Rate 0 06/06/25 11:26 Pain Level 0 06/06/25 11:26 Intake & Output 06/05/25 06/05/25 06/06/25 11:59 23:59 11:59 Intake Total 280 / 400 120 / 400 Output Total 500 / 1300 800 / 1300 800 / 800 Balance -220 / -900 -680 / -900 -800 / -800 Weight 82.5 kg 81.6 kg Intake: IV Oral 280 / 390 110 / 390 Output: Urine 500 / 1300 800 / 1300 800 / 800 Other: Urine Color Yellow Pale Yellow Yellow Urine Appearance Clear Clear Clear Urine Odor Normal Normal Normal Comment pt had a cont liquid bm mixed with urine, couldnt get an accurate amount of urine measured Stool Size Moderate Small Stool Characteristics Soft Liquid Liquid Data Completed and Pending Pending Labs at Discharge: 06/03/25 06/03/25 06/03/25 11:02 12:00 14:04 WBC 9.77 RBC 3.19 L Hgb 9.9 L Hct 28.0 L MCV 88 MCH 31.0 MCHC 35.4 RDW 12.7 Plt Count 242 MPV 11.6 H Immature Gran % 0.4 Neutrophils % 84.0 Lymphocytes % 7.7 Monocytes % 7.3 Eosinophils % 0.4 Basophils % 0.2 Nucleated RBC % 0.0 Absolute Neutrophils 8.21 H Absolute Lymphocytes 0.75 L Absolute Monocytes 0.71 Absolute Eosinophils 0.04 Absolute Basophils 0.02 VBG Lactate 1.7 Sodium 121 L* Potassium 3.5 Chloride 87 L Carbon Dioxide 26.0 Anion Gap 8.0 BUN 9 Creatinine 0.5 L Est GFR (CKD-EPI 2020) 89.60 Glucose 128 H Calcium 8.8 Magnesium 1.5 L Total Bilirubin 0.6 AST 18 ALT 20 Alkaline Phosphatase 104 Troponin I 9 12 NT-Pro-B Natriuret Pep 591 H Total Protein 6.7 Albumin 3.4 TSH 4.27 H Urine Color Yellow Urine Clarity Clear Urine pH 5.5 Ur Specific [place] 1.010 Urine Protein Negative Urine Ketones Negative Urine Blood Negative Urine Nitrite Negative Urine Bilirubin Negative Urine Urobilinogen 0.2 Ur Leukocyte Esterase Small H Urine RBC Negative Urine WBC 3-5 Ur Epithelial Cells Few Urine Crystals Negative Urine Bacteria Few Urine Casts Negative Urine Mucus Negative Urine Other Negative Ur Culture Indicated? No Urine Glucose Negative 06/03/25 06/04/25 06/04/25 17:26 05:13 15:10 WBC 7.98 RBC 3.44 L Hgb 10.6 L Hct 29.9 L MCV 87 MCH 30.8 MCHC 35.5 RDW 12.8 Plt Count 233 MPV 11.9 H Immature Gran % Neutrophils % Lymphocytes % Monocytes % Eosinophils % Basophils % Nucleated RBC % Absolute Neutrophils Absolute Lymphocytes Absolute Monocytes Absolute Eosinophils Absolute Basophils VBG Lactate Sodium 122 L* 122 L* 120 L* Potassium 3.4 L 4.0 4.0 Chloride 86 L 87 L 86 L Carbon Dioxide 26.1 28.7 28.4 Anion Gap 9.9 6.3 5.6 BUN 8 7 7 Creatinine 0.5 L 0.4 L 0.5 L Est GFR (CKD-EPI 2020) 89.60 94.55 89.60 Glucose 131 H 84 104 Calcium 8.4 L 8.4 L 8.3 L Magnesium 1.5 L Total Bilirubin AST ALT Alkaline Phosphatase Troponin I NT-Pro-B Natriuret Pep Total Protein Albumin TSH Urine Color Urine Clarity Urine pH Ur Specific [place] Urine Protein Urine Ketones Urine Blood Urine Nitrite Urine Bilirubin Urine Urobilinogen Ur Leukocyte Esterase Urine RBC Urine WBC Ur Epithelial Cells Urine Crystals Urine Bacteria Urine Casts Urine Mucus Urine Other Ur Culture Indicated? Urine Glucose 06/05/25 05:00 WBC RBC Hgb Hct MCV MCH MCHC RDW Plt Count MPV Immature Gran % Neutrophils % Lymphocytes % Monocytes % Eosinophils % Basophils % Nucleated RBC % Absolute Neutrophils Absolute Lymphocytes Absolute Monocytes Absolute Eosinophils Absolute Basophils VBG Lactate Sodium 120 L* Potassium 4.0 Chloride 86 L Carbon Dioxide 28.2 Anion Gap 5.8 BUN 6 L Creatinine 0.4 L Est GFR (CKD-EPI 2020) 94.55 Glucose 88 Calcium 7.9 L Magnesium 1.6 L Total Bilirubin AST ALT Alkaline Phosphatase Troponin I NT-Pro-B Natriuret Pep Total Protein Albumin TSH Urine Color Urine Clarity Urine pH Ur Specific [place] Urine Protein Urine Ketones Urine Blood Urine Nitrite Urine Bilirubin Urine Urobilinogen Ur Leukocyte Esterase Urine RBC Urine WBC Ur Epithelial Cells Urine Crystals Urine Bacteria Urine Casts Urine Mucus Urine Other Ur Culture Indicated? Urine Glucose PFSH All Active Problems (Updated 06/04/25 @ 09:39 by Willian Murphy MD) CAD (coronary artery disease) (Chronic) Hyponatremia (Acute) Heart failure (Acute) Edema (Acute) Dyspnea (Acute) Weight gain (Acute) Fracture of humeral shaft, right, closed (Acute 05/05/24) Obesity (Chronic) a. Stage I. 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 Edwards,[facility] Hypothyroidism (Acute 03/08/13) Osteopenia (Acute) Osteoarthritis, hip, bilateral (Acute) glucosamine Vision, loss, sudden (Acute) left eye 10/27/22 CRAO (central retinal artery occlusion) (Acute) Medical History (Updated 06/04/25 @ 09:39 by Willian Murphy MD) Acute CVA (cerebrovascular accident) End of life care Advanced directives. Patient completed her advance directives and herCOLST forms. 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 History of tobacco use Fracture of thoracic spine History of hypercalcemia a. With elevate TTH secondary to a benign adenoma now diminished in size. Smoking history a. Quit approximately 50 years ago after 10 pack years. Unstable angina a. Recurrent chest pressure with left arm weakness x 4 - 6 weeks. b. Multiple cardiac risk factors. Surgical History History of cardiac cath (12/17/13) Normal coronaries Thyroid (~2005) BX; RIGHT Skin Cancer Removal 09/07/16 Para-thyroid adenoma surgery (~2014) Cardiac cath (~2013) Family History Mother , age 81 Essential hypertension Hypothyroid Hypertension Heart disease Father , age 71 Diabetes Essential hypertension Heart disease Myocardial infarction Sister Essential hypertension Heart disease Breast cancer Brother , age 83 Essential hypertension Depression Stroke Heart disease Maternal Grandfather , age 39 Pneumonia Heart disease Paternal Grandfather , age 72 Heart disease Alcohol abuse Depression Maternal Grandmother , age 36 Heart disease Pneumonia Paternal Grandmother , age 70 Heart disease Depression Son Essential hypertension Depression Alcohol abuse Son Alcohol abuse Essential hypertension Son , AGE 55 Substance abuse Diabetes Essential hypertension Heart disease Hyperlipidemia Depression Son Essential hypertension Daughter Hypertension Sister No problems noted. Social History (Updated 11/12/24 @ 12:31 by Jocelyn Martell) Smoking/Tobacco Use Status: Former Tobacco Use tobacco type: cigarettes Quit Date: 07/28/1967 Tobacco: How many years used: 10 Quit status: quit date established Second Hand Exposure: Yes Smoking risk assessment performed?: Yes Alcohol Intake: current Alcohol Intake frequency: holidays/special occasions only Previous attempts at quittin Drug use: Never Substance use type: does not use Counseling given: No Adopted: No Caregiver/Support person: No Foster care: No Household members: none Housing: house Number of Children: 5 number of grandchildren: 7 Communication Needs: None Education Level: college Do you need help understanding health information?: Never current occupation: Retired RN Pets and animals: No Sexually active: No Do you think of yourself as: straight/heterosexual Current gender identity: female What is your relationship status?: How often do you talk on the phone with friends or family?: three or more times per week How often do you get together with friends or relatives?: twice per week How often do you attend jain or jehovah's witness services?: 1-3 times per year Do you belong to any clubs or organized social groups?: no Panel score (0-1 are the most socially isolated patients): 1 What type of physical activity do you participate in: walking Duration: 15-30 minutes/day Frequency: 5-6 times per week Gayle/Restorationist: Moravian Special gayle needs: No Agree to transfusion: Yes Seatbelt use: always Helmet use: No Drive intox or ride w/intox high lift driver: No Working smoke detector in home: Yes Carbon monox detector in home: Yes Firearms in home: No Do you feel safe at home: Yes Victim of physical abuse: No Victim of emotional abuse: No Victim of sexual abuse: No Would you like helpful sources: No
--- NOTE | 2025-06-06 11:45 | PDOC.HHF2F_ITS ---
Date of service: 06/06/25 Time of Service: 11:45 Home Health Referral Registered Nurse: Check all that apply Instruct on new or changed medication(s)/assess compliance: Ordered Assess for exacerbation of medical condition, instruct patient/caregivers on signs and symptoms to report for early detection: Ordered Physical Therapist: Check all that apply Increase strength & endurance for safe mobility at home: Ordered To design/establish home maintenance program: Ordered Photographic Equipment Mechanic: Assist with community resources: Ordered Assist with exterminator termite care planning: Ordered Encounter Date and Reason: I certify that a FTF encounter for this patient was performed on June 06, 2025 and that such encounter was related to the primary reason the patient requires home health services. The encounter was conducted in the following manner: * By me as the certifying physician, HEEL CASER, PA or * By an inpatient physician, HEEL CASER or PA during an inpatient stay who communicated findings to me, Certification And Authentication I certify that I composed the above information based on my clinical judgment relating to this patient's medical condition and, if applicable, clinical findings communicated to me by the NPP or inpatient physician who performed the FTF encounter. Name of Provider that will be monitoring home health services: Hang Elam
--- NOTE | 2025-06-06 12:26 | CMPROGNOTE_ITS ---
Date of service: 06/06/25 Time of Service: 12:26 Care Management Progress Note Progress Note Text Progress Note Text: Zane was sitting in a recliner visiting with her daughter, Kimberly, when CM met with her; both are pleasant and easily engage in conversation. PT feels that Zane would benefit from a STR stay, and she is agreeable to referrals being sent to the [facility] and [facility]. Referrals will be sent once the documentation from PT is completed. Of note, Kimberly resides in [place] and she is planning to remain in the area X 1 week. CM will follow. Discharge Potential Discharge Needs: Consult Consult Services Needed: Palliative and PCP F/U Appt Anticipated Barriers to Discharge: Bed availability Patient/Family Education Needs: Review discharge instructions, discuss Ask Me Three Transportation: Other (Depending on dispo) Plan: Palliative consult is pending. PT recommends SNF for STR, prior to discharging home. Referrals are being sent to [facility] and [facility], patient agrees to allow CM to expand the search if no bed offers are made at either of these facilities. CM will follow. Social Determinants of Health Screening Social Determinants of health last assessed in clinic: 06/06/25 Will the Patient Participate in the Screening?: Yes Do you worry about having a steady place to live?: no Problems where you live: no known problems In the past 12 months, have you had to go without electric, gas, oil or water in your home?: no 1. Within the past 12 months, we worried whether our food would run out before we got money to buy more.: Never true 2. Within the past 12 months, the food we bought just didn't last and we didn't have money to get more.: Never true Has lack of transportation kept you from medical appointments or from doing things needed for daily living?: no Has anyone in your life made you feel unsafe or unsupported?: no How hard is it for you to pay for the very basics like food, housing, medical care, and heating? Would you say it is:: Not hard at all Do you want help finding or keeping work or a job?: I do not need or want help If for any reason you need help with day-to-day activities such as bathing, prep aring meals, shopping, managing finances, etc., do you get the help you need?: I don’t need any help How often do you feel lonely or isolated from those around you?: Never Do you speak a language other than Amharic at home?: No Does the patient want assistance with any of the above?: No
--- NOTE | 2025-06-06 12:34 | W.PM.PROGNOT ---
Date of Service Date of service: 06/06/25 Time of Service: 08:00 Assessment and Plan Assessment and plan (1) Heart failure: Status: Acute Assessment and plan: -new diagnosis of HFpEF, acute exacerbation, BNP 591 -good UOP with 40mg IV lasix BID, will continue -strict I/O's -echo significant for LVEF 60%, severely dilated LA, sclerosis of aortic valve, mild/moderate mitral and tricuspid regurgitation June 05: continue diuresis, will consult [facility] cardiology. Continue VTE ppx enoxaparin. June 06: [facility] cardiology advising addition of spironolactone, increase in metoprolol. Likely DC to SNF Jun 07Friday (2) Hyponatremia: Status: Acute Assessment and plan: -moderate asymptomatic hypervolemic hyponatremia related to above -acute worsening of chronic condition -continue close monitoring with BMPs (Na 121 > 122) -f/u PM BMP June 05: Na 120. No intervention at this time, continue to monitor. (3) Essential hypertension: Status: Acute Assessment and plan: -continue to monitor BP -continue metoprolol; losartan and amlodipine held while actively diuresing June 05: continue current management (4) CAD (coronary artery disease): Status: Chronic Assessment and plan: -continue home plavix, asa, losartan and metoprolol Subjective Subjective Interval history since last seen: Patient is up in a chair, comfortable. Daughter at bedside. Concerned about independence for home discharge, will evaluate for rehab. Exam Narrative Exam Narrative: General: This is a pleasant, elderly woman in no distress HEENT: Normocephalic, atraumatic CV: RRR. 1+ pitting edema BLE Resp: CTAB Abd: soft, NTND MSK: voluntary motion x4 Neuro: awake, alert, no focal deficits Objective Last Vital Signs Temp 36.5 C 06/06/25 11:26 Pulse 57 L 06/06/25 11:26 Resp 17 06/06/25 11:26 BP 118/56 L 06/06/25 11:26 Pulse Ox 95 06/06/25 11:26 Time Spent with Patient Time Spent with Patient: 25-34 minutes Time was spent: preparing to see the patient(eg.review tests), obtaining and/or reviewing separately otained hiistory, ordering medications,tests, procedures, referring, communicating with other health childcare administrator, indepentently interpreting results, counseling the patient and care coordination
--- NOTE | 2025-06-06 13:49 | PCNE_ITS ---
Date of service: 06/06/25 Time of Service: 15:00 History of Present Illness History of Present Illness Chief Complaint: sob Narrative: H and P Zane is an 89 year old female with history of HTN, HLD, hypothyroidism, CVA (October 2022, not residual deficits), and chronic hyponatremia who presented to the ED today for evaluation of progressively worsening dyspnea with exertion over the last few weeks. Recently diagnosed with PNA, but reports she does not feel improved, continues to have persistent cough. She was recently prescribed diuretics (2 weeks ago) and had been taking daily until 2 days ago (stopped d/t stomach upset), however has recently gained 13 lbs in fluid weight (says she feels puffy all over, especially to face, hands, and legs). Denies associated fever, dizziness, sore throat, congestion, chest pain, vomiting, abdominal pain, change in bowel or bladder function. Admits to occasional palpitations (feeling her heart flutter), at rest. While in the ED, she was diagnosed with new onset CHF with new O2 requirement (88-89% on RA, improved with 1 L O2 via NC). POCUS notable for +B lines throughout, CXR showed basilar infiltrates (PNA vs atelectasis) and bilateral pleural efusions with pulmonary venous congestion c/w CHF. EKG NSR, rate 61, no changes c/w acute ischemia. Electrolyte imbalances noted, including worsening of chronic hyponatremia (121 today, 131 at baseline) and hypomagnesemia (1.5). CBC notable for mild anemia (9.9, 28.0), no leukocytosis or thrombocytopenia. BNP elevated at 591. Troponins flat (9, 12). Received 40 mg IV lasix in ED prior to arrival to floor. Zane is resting comfortably, O2 cannula in place. Reports she is able to breathe ok at rest, including while laying flat. Interim Hx I am meeting with Zane and her daughter from [place]. 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 She did asked me to explain it to her daughter. Prior to this hospitalization Carlie was taking care of her own finances, living alone, and driving. Zane states that she is feeling much much better. She has less shortness of breath. She does feel weak and wants to go to the rehab to get stronger prior to going home. She fully expects to be able to go home Zane states that she does not want care outside of the [facility]. She does not want aggressive procedure laden care but rather wants to see the local cultural centre manager and do the best she can She states that she has a very supportive family but also understands they have their own life. She lives in a good community of mostly elderly people who watch out for each other Consults Consult date: 06/06/25 Requesting physician: Salvador Guevara Assessment and Plan Assessment and plan (1) Advance care planning: Status: Acute (2) Heart failure: Status: Acute Assessment and plan: She clearly understands her new diagnosis of congestive heart failure. 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 She knows she needs to be weighing herself regularly so that she does not run into trouble like she was which landed her in the hospital. She is very willing to go to rehab for couple of weeks. Her was in the [facility] for a long time prior to his and she is hoping that that is where she will go. She already has a COLST form completed. She understands what DNR/DNI means. She still would like IV hydration antibiotics etc. if appropriate. She does not want resuscitation. She also has discussed this with her family who are in agreement. She has her COLST form on her refrigerator Additionally she has an understanding that at 89 years of age things can go badly and does not want a lot of interventions to be done. She does not want a transfer to a tertiary hospital but would rather be treated locally. We did talk about the future and she is glad that she has a support of her family and neighborhood. I am happy to visit with Zane after she gets out of rehab. She knows that I am willing to do a home visit. Discussed with nursing and family . what a alfonso woman she is Review of Systems Narrative: No nausea vomiting diarrhea constipation no heart palpitations and her breathing has much improved PFSH All Active Problems (Updated 06/07/25 @ 07:33 by Genie Andujar MD, DC) Advance care planning (Acute) CAD (coronary artery disease) (Chronic) Hyponatremia (Acute) Heart failure (Acute) Edema (Acute) Dyspnea (Acute) Weight gain (Acute) Fracture of humeral shaft, right, closed (Acute 05/05/24) CRAO (central retinal artery occlusion) (Acute) Vision, loss, sudden (Acute) left eye 10/27/22 Osteoarthritis, hip, bilateral (Acute) glucosamine Osteopenia (Acute) Hypothyroidism (Acute 03/08/13) Hyperparathyroidism, unspecified (Acute 07/13/12) Has seen endo at [facility] [place]- bx, benign (2014 @) 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 Edwards,[facility] [place] Hyperlipidemia (Acute) Essential hypertension (Acute 09/03/13) Arthritis (Acute) Obesity (Chronic) a. Stage I. Medical History (Updated 06/07/25 @ 07:33 by Genie Andujar MD, DC) Acute CVA (cerebrovascular accident) End of life care Advanced directives. Patient completed her advance directives and herCOLST forms. 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 History of tobacco use Fracture of thoracic spine History of hypercalcemia a. With elevate TTH secondary to a benign adenoma now diminished in size. Smoking history a. Quit approximately 50 years ago after 10 pack years. Unstable angina a. Recurrent chest pressure with left arm weakness x 4 - 6 weeks. b. Multiple cardiac risk factors. Surgical History History of cardiac cath (12/17/13) Normal coronaries Thyroid (~2005) BX; RIGHT Skin Cancer Removal 09/07/16 Para-thyroid adenoma surgery (~2014) Cardiac cath (~2013) Family History Mother , age 81 Essential hypertension Hypothyroid Hypertension Heart disease Father , age 71 Diabetes Essential hypertension Heart disease Myocardial infarction Sister Essential hypertension Heart disease Breast cancer Brother , age 83 Essential hypertension Depression Stroke Heart disease Maternal Grandfather , age 39 Pneumonia Heart disease Paternal Grandfather , age 72 Heart disease Alcohol abuse Depression Maternal Grandmother , age 36 Heart disease Pneumonia Paternal Grandmother , age 70 Heart disease Depression Son Essential hypertension Depression Alcohol abuse Son Alcohol abuse Essential hypertension Son , AGE 55 Substance abuse Diabetes Essential hypertension Heart disease Hyperlipidemia Depression Son Essential hypertension Daughter Hypertension Sister No problems noted. Social History (Updated 11/12/24 @ 12:31 by Jocelyn Martell) Smoking/Tobacco Use Status: Former Tobacco Use tobacco type: cigarettes Quit Date: 07/28/1967 Tobacco: How many years used: 10 Quit status: quit date established Second Hand Exposure: Yes Smoking risk assessment performed?: Yes Alcohol Intake: current Alcohol Intake frequency: holidays/special occasions only Previous attempts at quittin Drug use: Never Substance use type: does not use Counseling given: No Adopted: No Caregiver/Support person: No Foster care: No Household members: none Housing: house Number of Children: 5 number of grandchildren: 7 Communication Needs: None Education Level: college Do you need help understanding health information?: Never current occupation: Retired RN Pets and animals: No Sexually active: No Do you think of yourself as: straight/heterosexual Current gender identity: female What is your relationship status?: How often do you talk on the phone with friends or family?: three or more times per week How often do you get together with friends or relatives?: twice per week How often do you attend quaker or mu-ism services?: 1-3 times per year Do you belong to any clubs or organized social groups?: no Panel score (0-1 are the most socially isolated patients): 1 What type of physical activity do you participate in: walking Duration: 15-30 minutes/day Frequency: 5-6 times per week Gayle/Mandaen: Yazidism Special gayle needs: No Agree to transfusion: Yes Seatbelt use: always Helmet use: No Drive intox or ride w/intox otr truck driver: No Working smoke detector in home: Yes Carbon monox detector in home: Yes Firearms in home: No Do you feel safe at home: Yes Victim of physical abuse: No Victim of emotional abuse: No Victim of sexual abuse: No Would you like helpful sources: No Exam Narrative Exam Narrative: Carlie is an 89-year-old woman sitting in her chair. She is very lucid and oriented x 3. She can talk in long paragraphs her heart is regular. There is a systolic murmur that is 2/6 in the lateral sternal border. Aeration fairly good breathing. She does have some rales in the bases. These improve with deep breathing. Her legs have 1+ edema, but she states that they are significantly better than what they had been Results Last Vital Signs Temp 97.7 F 1110/25 11:26 Pulse 57 L 06/06/25 11:26 Resp 17 06/06/25 11:26 BP 118/56 L 06/06/25 11:26 Pulse Ox 95 06/06/25 11:26 Labs 06/07/25 06:35 06/05/25 05:00 Imaging Imaging Studies: echo 06/03/25 Conclusion Normal left ventricular wall thickness and chamber size. Ejection fraction is 60%. Wall motion is normal Normal right ventricular size and function Severely dilated left atrium. Moderate right atrial enlargement Aortic valve is sclerotic and trileaflet without stenosis or regurgitation Mild to moderate mitral and tricuspid regurgitation Estimated right ventricular systolic pressure is [address] Chest MPRESSION: 1. There is no evidence of a pulmonary embolism. 2. Interval increase in size of the bilateral pleural effusions and bilateral pulmonary infiltrates since 05/19/2025. Time Spent Time Spent with Patient Time Spent(min): 42
--- NOTE | 2025-06-06 14:12 | IN_ITS ---
PT Notes Visit Reasons: Acute Exacerbation of CHF,Acute Hypoxic Resp Failu Physical Therapy Inpatient Initial Evaluation Date: 06/06/2025 Referring Doctor: Dr Guevara PT Orders: PT CONSULT:Safety Consult for D/C Precautions: Non union right humerus fracture, Standard Patient Profile/Admitting Diagnosis: Pt is an 89 yo female who presented to ED on 06/03/2025 with report of increased CANO x several weeks. Pt with recent dx of PNA and started on diuretic which she took for 2 weeks then stopped 2 days prior to presenting to ED. CxR: basilar infiltrate (PNA vs Atelectasis) and B pleural effusion, CHF. Pt treated with IV lasix in ED and transferred to Med Surg unit for further medical management. ECHO: HF with LVEF 60% , severely dilated Left atria, sclerosis Aortic Valve, mild/mod Mitral valve and tricuspid regurgitation. PMHX: Hyponatremia (Acute) Heart failure (Acute) Edema (Acute) Dyspnea (Acute) Weight gain (Acute) Fracture of humeral shaft, right, closed (Acute 05/05/24) Obesity (Chronic) a. Stage I.Arthritis (Acute) Essential hypertension (Acute 09/03/13) Hyperlipidemia (Acute) Hyperparathyroidism, unspecified (Acute 07/13/12) Has seen endo at [facility] [place]- bx, benign (2014 @) 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 Edwards,[facility] [place] Hypothyroidism (Acute 03/08/13) Osteopenia (Acute) Osteoarthritis, hip, bilateral (Acute) glucosamineVision, loss, sudden (Acute) left eye 10/27/22CRAO (central retinal artery occlusion) (Acute) Medical History (Updated 06/03/25 @ 12:29 by Wilbert Butler MD) Acute CVA (cerebrovascular accident) End of life care Advanced directives. Patient completed her advance directives and herCOLST forms. She is a former nurse, has capacity, does not wish for resuscitation, but would like to have fluids if it would create a positive outcome within 48 hours.History of tobacco use Fracture of thoracic spine History of hypercalcemia a. With elevate TTH secondary to a benign adenoma now diminished in size.Smoking history a. Quit approximately 50 years ago after 10 pack years.Unstable angina a. Recurrent chest pressure with left arm weakness x 4 - 6 weeks. b. Multiple cardiac risk factors. Surgical History History of cardiac cath (12/17/13) Normal coronaries Thyroid (~2005) BX; RIGHTSkin Cancer Removal 09/07/16Para-thyroid adenoma surgery (~2014) Cardiac cath (~2013) Social History/Home Situation: Pt resides alone in a mobile home with ramp to enter. Pt independent ambulation and ADL within mobile home. She has assistance from her family for transportation to appointments and grocery shopping. Equipment Owned/DME: Pt has access to an FWW. Subjective:Pt reports she feels weak but better than she did when she came to the hospital Objective: [] General Observation: presented seated in chair with her dtr visiting ( dtr participated in session), BLE 1+ edema knee to foot, 3+ pitting edema to RUE shoulder to fingers. Large ecchymotic area to right medial elbow. Mental Status: A+Ox4, cooperative able to follow 2 step instructions, agreeable to participate in assessment Pain: Right UE mid shaft at old non union fracture site 2 constand reports it can increase to 4-5/10 with continuous use ROM: [] Right Upper Extremity: Shoulder impaired AROM, PROM: flexion 90 degrees, abduction 80, elbow ~30-120 degrees, wrist impaired, hand WFL Left Upper Extremity: WFL Right Lower Extremity: WFL except hip IR to neutral and DF to neutral with knee extension Left Lower Extremity: WFL except hip IR to neutral and DF to neutral with knee extension Strength: [] Right Upper Extremity:shoulder 2-/5 , elbow 3/5, wrist 3/5 hand strong greasp Left Upper Extremity: grossly 4/5 Right Lower Extremity: grossly 3+/5 Left Lower Extremity: grossly 3+/5 Sensation: intact diminished light touch d/t edema Bed Mobility/Transfers: [] Supine to sit Mod A Sit to stand CGA Stand to sit CGA and cues for reach back as well as increase hip flexion to control descent to surface Bed to chair with FWW CGA Gait: amb 75 ft with FWW with CGA of 1 and w/c follow for safety. Pt demonstrates impaired step height and length BLE , ER of BLE with Left >Right. Pt noted to kick leg of walker on the left multiple times, Balance: [] Static Sitting: Good Dynamic Sitting: Fair Static Standing: Good with BUE support Dynamic Standing: Fair with BUE support Special Tests: [] Mobility Limitations Standardized Measure [] [facility] AM-PAC 6 clicks Basic Mobility Inpatient Short Form: [] Raw Score: 15 CMS Score: 57.70% Informed Consent/Education: Patient instructed in purpose of PT consult. Treatment: 72691: positioning of RUE to reduce swelling , Dtr educated and able to demonstrate elevation of RUE , Pt amb with FWW 75 ft after sit rest with CGA including turns and obstacle management. Pt perform stand to sit x 4 trials with CGA and verbal cue to bend at hips to control descent to surface. Pt able to show intermittent carryover of technique. Assessment: Patient is an 89 yo female presents with clinical signs and symptoms consistent with current/admitting diagnoses of CHF that have resulted in mobility limitations, gait instability, generalized weakness, and impairment of motor control as demonstrated by the following impairment level findings: 1. Decreased strength to BLE major muscle groups 2. Impaired standing balance 3. Limitation of joint range of motion in right shoulder 4. Pain right shoulder 5. Swelling/edema to right UE and BLE 6. Impaired functional activity tolerance Impairments are contributing to the following functional limitations: 1. Inability to safely ambulate without assistive device 2. Increase completion time for mobility ADL performance 3. Increased fall risk 4. decline in bed mobility 5. decline in transfer skills Patient is assessed as a moderate complexity based on the following: History: 89-year-old female with impairment level findings, functional limitations, and past medical history as indicated above Examination: Demonstrable impairment in strength, balance, and mobility level with underlying impairments and functional limitations as documented above Presentation: evolving Decision Making:Moderate Goals: 1. CGA bed mobility with rail 2. SBA transfers with FWW 3. SBA amb with FWW 100 feet x 2 without kicking FWW with left foot 4. SBA sstand to sit demonstrating controlled descent to chair Plan of Care/Treatment Plan: 1-2x/day, 7 days/week x 1 week. Plan of care has been reviewed with the CAR PARKER providing the service under Physical Therapy direction. Initiate Physical Therapy intervention for strengthening, bed mobility, transfers, gait, balance training, use of assistive device. DISCHARGE RECOMMENDATIONS: SHORT TERM SNF THEN HOME WITH HHPT AFTER REHAB TREATMENT CODE/TIME: 23063, [id number]/ 1:15PM-1:57PM Thank you for the opportunity to participate in the care of this patient. Marlen Khan, PT [facility]
[2025-06-07 03:30] VITALS: BP 151/50; PULSE 67; RESP 19; TEMP 36.2; O2SAT 91
[2025-06-07] MEDS: Levothyroxine 100 MCG TAB PO (05:39)
[2025-06-07 06:52] LABS: Abs Immature Grans 0.04 10^3/uL (0.0-0.06); HCT 30.1 % (36.0-46.0); HGB 10.5 g/dL (11.2-15.7); Immature Grans % 0.4 %; MCH 31.0 pg (27.0-33.0); MCHC 34.9 % (32.0-36.0); MCV 89 fL (80-95); MPV 11.6 fL (8.0-11.0); Platelet Count 214 10^3/uL (130-400); RBC 3.39 10^6/uL (3.93-5.22); RDW 13.0 % (11.7-14.6); RDW-SD 42.8 fL; WBC 9.62 10^3/uL (4.4-10.8)
[2025-06-07 07:39] LABS: ALT 19 U/L (14-59); AST 20 U/L (15-37); Albumin 3.1 g/dL (3.4-5.0); Alkaline Phosphatase 105 U/L (46-116); Anion Gap 7.9 mmol/L (3-11); BUN 7 mg/dL (7-18); Bilirubin, Total 0.8 mg/dL (0.2-1.0); CO2 25.1 mmol/L (21.0-32.0); Calcium 8.2 mg/dL (8.5-10.1); Chloride 88 mmol/L (98-107); Glucose 94 mg/dL (74-106); Magnesium 1.8 mg/dL (1.8-2.4); Potassium 4.6 mmol/L (3.5-5.1); Total Protein 6.5 g/dL (6.4-8.2)
[2025-06-07 07:42] VITALS: BP 136/52; PULSE 69; RESP 17; TEMP 36.4; O2SAT 95
[2025-06-07 07:43] LABS: Sodium 121 mmol/L (136-145)
[2025-06-07 08:25] VITALS: O2SAT 97
[2025-06-07] MEDS: Potassium Chloride 20 MEQ TABCR 40 MEQ PO (08:40)
[2025-06-07] MEDS: Spironolactone 25 MG TAB 12.5 MG PO (08:41)
[2025-06-07] MEDS: Magnesium Oxide 400 MG TAB PO (08:41)
[2025-06-07] MEDS: Metoprolol CR 100 MG TABCR PO (08:41)
[2025-06-07] MEDS: Atorvastatin 20 MG TAB 40 MG PO (08:41)
[2025-06-07] MEDS: Clopidogrel 75 MG TAB PO (08:41)
[2025-06-07] MEDS: Losartan 50 MG TAB 100 MG PO (08:41)
[2025-06-07] MEDS: Furosemide 40 MG/4 ML VIAL IVP (08:42)
[2025-06-07] MEDS: Enoxaparin 40 MG/0.4 ML SYR SC (08:42)
[2025-06-07 08:48] VITALS: BP 142/52; PULSE 63; RESP 16; O2SAT 97
--- NOTE | 2025-06-07 10:01 | DSE_ITS ---
Date of service: 06/07/25 Time of Service: 08:00 DS: Diagnosis Discharge Diagnosis (1) Heart failure: Status: Acute Asessment and Plan: -apparently new diagnosis of HFpEF, acute exacerbation, BNP 591 -good UOP with 40mg IV lasix BID -strict I/O's -echo significant for LVEF 60%, severely dilated LA, sclerosis of aortic valve, mild/moderate mitral and tricuspid regurgitation -[facility] cardiology consulted, recommending addition of spironolactone and increase in metoprolol -Patient evaluated by PT, who recommend short rehab stay -Excellent family support (2) Chronic hyponatremia: Status: Acute Asessment and Plan: -moderate asymptomatic hypervolemic hyponatremia in the 120's -outpatient followup appropriate (3) Benign essential hypertension: Status: Acute Asessment and Plan: Continue metoprolol, rate increased from 25 BID to 50 BID Restart losartan, amlodipine (4) CAD (coronary artery disease): Status: Chronic Asessment and Plan: -continue home plavix, asa, losartan and metoprolol Discharge Plan Disposition Patient Disposition: [facility](SNF) Condition: Improving Discharge Details Reason For Visit: Acute Exacerbation of CHF,Acute Hypoxic Resp Failu Admit Date/Time: 06/03/25 12:10 Admit Provider: Willian Murphy Attending Provider: Willian Murphy [facility] Course: Zane Nash is an 89 year old woman presenting June 03 with shortness of breath, weight gain and pitting edema, found to be fluid overloaded. Echo showed new severe left atrial dilation. [facility] cardiology advised tighter BP control and initiation of spironolactone. She has responded well to diuresis and her edema has improved. Chronic hyponatremia is at baseline. Patient is safe to discharge to rehab with plans to advance home with home health. Home Meds and New Rx's Prescriptions: New potassium chloride 20 mEq Tablet Extended Release 40 meq PO BID Qty: 60 0RF metoprolol succinate 50 mg tablet extended release 24 hr 50 mg PO DAILY Qty: 30 0RF Continued amlodipine 5 mg tablet See Rx Instructions PO BID Qty: 270 4RF Rx Instructions: 10 mg po qam and 5 mg po qpm orally twice a day; atorvastatin 20 mg tablet 40 mg PO DAILY Qty: 180 4RF clopidogrel 75 mg tablet 75 mg PO DAILY Qty: 90 3RF losartan 50 mg tablet 100 mg PO DAILY Qty: 180 3RF Rx Instructions: [facility] levothyroxine 100 mcg tablet 100 mcg PO DAILY Qty: 90 4RF Changed furosemide [Lasix] 20 mg tablet 40 mg PO DAILY Qty: 60 0RF Discontinued acetaminophen [Tylenol Extra Strength] 500 MG tablet 500 mg PO DAILY Patient Comments: 12/01/15 only takes one PRN. LR metoprolol tartrate 50 mg tablet 50 mg PO BID Qty: 180 4RF Discharge Instructions Instructions: High blood pressure in adults Referrals: Hang Rene NP [Primary Care Provider, Medicine] Referral Note: Your pcp will call you to schedule a follow up appointment, if you haven't heard from them within a couple days please call to schedule the follow up Activity:: Activity as Tolerated Equipment/Supplies:: No Equipment Needed Diet:: As Tolerated Discharge Orders Discharge Orders: Discharge Order (Routine); Ordered 06/07/25 Ordered By: Salvador Guevara DS: Summary Time Spent with Patient providing and/or coordinating discharge services: Less than 30 minutes Status at Discharge Functional status at discharge: uses cane/walker Overall status at discharge: patient is progressing back to baseline Mental Status: mental status grossly normal Speech and Movement: speech and movement normal Mood: congruent mood Affect: normal affect Exam Narrative Exam Narrative: General: This is a pleasant, elderly woman in no distress HEENT: Normocephalic, atraumatic CV: RRR. 1+ pitting edema BLE Resp: CTAB Abd: soft, NTND MSK: voluntary motion x4 Neuro: awake, alert, no focal deficits Psych Mental Status: mental status grossly normal Speech and Movement: speech and movement normal Mood: congruent mood Affect: normal affect DS: Data Vitals/I&O Vitals and I&O: Vital Signs Temperature 36.4 C L 06/07/25 07:42 Temperature Source Tympanic 06/07/25 08:48 Pulse 63 06/07/25 08:48 Pulse Rhythm Regular 06/03/25 15:12 Pulse 59 L 06/03/25 12:46 Respiratory Rate 16 06/07/25 08:48 Respiratory Effort Short of Breath 06/03/25 15:12 Respiratory Depth Normal 06/03/25 15:12 Respiratory Pattern Normal 06/03/25 15:12 Blood Pressure 142/52 H 06/07/25 08:48 Blood Pressure Mean 82 06/07/25 08:48 Pulse Oximetry 97 06/07/25 08:48 Respiratory End-tidal CO2 35 06/03/25 12:46 Oxygen Delivery Method Room Air 06/07/25 08:48 Oxygen Flow Rate 0 06/07/25 08:48 Pain Level 0 06/07/25 07:42 Intake & Output 06/06/25 06/06/25 06/07/25 11:59 23:59 11:59 Intake Total 447 / 447 240 / 240 Output Total 800 / 2500 1700 / 2500 350 / 350 Balance -800 / -2053 -1253 / -2053 -110 / -110 Weight 81.6 kg 80 kg Intake: IV Oral 437 / 437 240 / 240 Output: Urine 800 / 2500 1700 / 2500 350 / 350 Other: Urine Color Yellow Yellow Pale Urine Appearance Clear Clear Clear Urine Odor Normal Normal Normal Comment pt voids to toilet. pt voids to toilet. Stool Size Small Smear Stool Characteristics Soft Soft Liquid Data Completed and Pending Pending Labs at Discharge: 06/03/25 06/03/25 06/03/25 11:02 12:00 14:04 WBC 9.77 RBC 3.19 L Hgb 9.9 L Hct 28.0 L MCV 88 MCH 31.0 MCHC 35.4 RDW 12.7 Plt Count 242 MPV 11.6 H Immature Gran % 0.4 Neutrophils % 84.0 Lymphocytes % 7.7 Monocytes % 7.3 Eosinophils % 0.4 Basophils % 0.2 Nucleated RBC % 0.0 Absolute Neutrophils 8.21 H Absolute Lymphocytes 0.75 L Absolute Monocytes 0.71 Absolute Eosinophils 0.04 Absolute Basophils 0.02 VBG Lactate 1.7 Sodium 121 L* Potassium 3.5 Chloride 87 L Carbon Dioxide 26.0 Anion Gap 8.0 BUN 9 Creatinine 0.5 L Est GFR (CKD-EPI 2020) 89.60 Glucose 128 H Calcium 8.8 Magnesium 1.5 L Total Bilirubin 0.6 AST 18 ALT 20 Alkaline Phosphatase 104 Troponin I 9 12 NT-Pro-B Natriuret Pep 591 H Total Protein 6.7 Albumin 3.4 TSH 4.27 H Urine Color Yellow Urine Clarity Clear Urine pH 5.5 Ur Specific [place] 1.010 Urine Protein Negative Urine Ketones Negative Urine Blood Negative Urine Nitrite Negative Urine Bilirubin Negative Urine Urobilinogen 0.2 Ur Leukocyte Esterase Small H Urine RBC Negative Urine WBC 3-5 Ur Epithelial Cells Few Urine Crystals Negative Urine Bacteria Few Urine Casts Negative Urine Mucus Negative Urine Other Negative Ur Culture Indicated? No Urine Glucose Negative 06/03/25 06/04/25 06/04/25 17:26 05:13 15:10 WBC 7.98 RBC 3.44 L Hgb 10.6 L Hct 29.9 L MCV 87 MCH 30.8 MCHC 35.5 RDW 12.8 Plt Count 233 MPV 11.9 H Immature Gran % Neutrophils % Lymphocytes % Monocytes % Eosinophils % Basophils % Nucleated RBC % Absolute Neutrophils Absolute Lymphocytes Absolute Monocytes Absolute Eosinophils Absolute Basophils VBG Lactate Sodium 122 L* 122 L* 120 L* Potassium 3.4 L 4.0 4.0 Chloride 86 L 87 L 86 L Carbon Dioxide 26.1 28.7 28.4 Anion Gap 9.9 6.3 5.6 BUN 8 7 7 Creatinine 0.5 L 0.4 L 0.5 L Est GFR (CKD-EPI 2020) 89.60 94.55 89.60 Glucose 131 H 84 104 Calcium 8.4 L 8.4 L 8.3 L Magnesium 1.5 L Total Bilirubin AST ALT Alkaline Phosphatase Troponin I NT-Pro-B Natriuret Pep Total Protein Albumin TSH Urine Color Urine Clarity Urine pH Ur Specific [place] Urine Protein Urine Ketones Urine Blood Urine Nitrite Urine Bilirubin Urine Urobilinogen Ur Leukocyte Esterase Urine RBC Urine WBC Ur Epithelial Cells Urine Crystals Urine Bacteria Urine Casts Urine Mucus Urine Other Ur Culture Indicated? Urine Glucose 06/05/25 06/07/25 05:00 06:35 WBC 9.62 RBC 3.39 L Hgb 10.5 L Hct 30.1 L MCV 89 MCH 31.0 MCHC 34.9 RDW 13.0 Plt Count 214 MPV 11.6 H Immature Gran % 0.4 Neutrophils % 75.9 Lymphocytes % 12.0 Monocytes % 10.2 Eosinophils % 1.1 Basophils % 0.4 Nucleated RBC % 0.0 Absolute Neutrophils 7.30 H Absolute Lymphocytes 1.15 L Absolute Monocytes 0.98 H Absolute Eosinophils 0.11 Absolute Basophils 0.04 VBG Lactate Sodium 120 L* 121 L* Potassium 4.0 4.6 Chloride 86 L 88 L Carbon Dioxide 28.2 25.1 Anion Gap 5.8 7.9 BUN 6 L 7 Creatinine 0.4 L 0.4 L Est GFR (CKD-EPI 2020) 94.55 94.55 Glucose 88 94 Calcium 7.9 L 8.2 L Magnesium 1.6 L 1.8 Total Bilirubin 0.8 AST 20 ALT 19 Alkaline Phosphatase 105 Troponin I NT-Pro-B Natriuret Pep Total Protein 6.5 Albumin 3.1 L TSH Urine Color Urine Clarity Urine pH Ur Specific [place] Urine Protein Urine Ketones Urine Blood Urine Nitrite Urine Bilirubin Urine Urobilinogen Ur Leukocyte Esterase Urine RBC Urine WBC Ur Epithelial Cells Urine Crystals Urine Bacteria Urine Casts Urine Mucus Urine Other Ur Culture Indicated? Urine Glucose PFSH All Active Problems (Updated 06/07/25 @ 11:19 by Salvador Guevara MD) Benign essential hypertension (Acute) Chronic hyponatremia (Acute) Advance care planning (Acute) CAD (coronary artery disease) (Chronic) Hyponatremia (Acute) Heart failure (Acute) Edema (Acute) Dyspnea (Acute) Weight gain (Acute) Fracture of humeral shaft, right, closed (Acute 05/05/24) Obesity (Chronic) a. Stage I. 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 Edwards,[facility] Hypothyroidism (Acute 03/08/13) Osteopenia (Acute) Osteoarthritis, hip, bilateral (Acute) glucosamine Vision, loss, sudden (Acute) left eye 10/27/22 CRAO (central retinal artery occlusion) (Acute) Medical History (Updated 06/07/25 @ 11:19 by Salvador Guevara MD) Acute CVA (cerebrovascular accident) End of life care Advanced directives. Patient completed her advance directives and herCOLST forms. 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 History of tobacco use Fracture of thoracic spine History of hypercalcemia a. With elevate TTH secondary to a benign adenoma now diminished in size. Smoking history a. Quit approximately 50 years ago after 10 pack years. Unstable angina a. Recurrent chest pressure with left arm weakness x 4 - 6 weeks. b. Multiple cardiac risk factors. Surgical History History of cardiac cath (12/17/13) Normal coronaries Thyroid (~2005) BX; RIGHT Skin Cancer Removal 09/07/16 Para-thyroid adenoma surgery (~2014) Cardiac cath (~2013) Family History Mother , age 81 Essential hypertension Hypothyroid Hypertension Heart disease Father , age 71 Diabetes Essential hypertension Heart disease Myocardial infarction Sister Essential hypertension Heart disease Breast cancer Brother , age 83 Essential hypertension Depression Stroke Heart disease Maternal Grandfather , age 39 Pneumonia Heart disease Paternal Grandfather , age 72 Heart disease Alcohol abuse Depression Maternal Grandmother , age 36 Heart disease Pneumonia Paternal Grandmother , age 70 Heart disease Depression Son Essential hypertension Depression Alcohol abuse Son Alcohol abuse Essential hypertension Son , AGE 55 Substance abuse Diabetes Essential hypertension Heart disease Hyperlipidemia Depression Son Essential hypertension Daughter Hypertension Sister No problems noted. Social History (Updated 11/12/24 @ 12:31 by Jocelyn Martell) Smoking/Tobacco Use Status: Former Tobacco Use tobacco type: cigarettes Quit Date: 07/28/1967 Tobacco: How many years used: 10 Quit status: quit date established Second Hand Exposure: Yes Smoking risk assessment performed?: Yes Alcohol Intake: current Alcohol Intake frequency: holidays/special occasions only Previous attempts at quittin Drug use: Never Substance use type: does not use Counseling given: No Adopted: No Caregiver/Support person: No Foster care: No Household members: none Housing: house Number of Children: 5 number of grandchildren: 7 Communication Needs: None Education Level: college Do you need help understanding health information?: Never current occupation: Retired RN Pets and animals: No Sexually active: No Do you think of yourself as: straight/heterosexual Current gender identity: female What is your relationship status?: How often do you talk on the phone with friends or family?: three or more times per week How often do you get together with friends or relatives?: twice per week How often do you attend latter-day or christian services?: 1-3 times per year Do you belong to any clubs or organized social groups?: no Panel score (0-1 are the most socially isolated patients): 1 What type of physical activity do you participate in: walking Duration: 15-30 minutes/day Frequency: 5-6 times per week Gayle/Uatsdin: Baptist Special gayle needs: No Agree to transfusion: Yes Seatbelt use: always Helmet use: No Drive intox or ride w/intox driver salesman: No Working smoke detector in home: Yes Carbon monox detector in home: Yes Firearms in home: No Do you feel safe at home: Yes Victim of physical abuse: No Victim of emotional abuse: No Victim of sexual abuse: No Would you like helpful sources: No Time Spent with Patient Time Spent with Patient: <45 minutes Time was spent: preparing to see the patient(eg.review tests), obtaining and/or reviewing separately otained hiistory, ordering medications,tests, procedures, referring, communicating with other health daytime caregiver, indepentently interpreting results, counseling the patient and care coordination
--- NOTE | 2025-06-07 10:44 | CMDISCH_ITS ---
Date of service: 06/07/25 Time of Service: 10:44 LACE Index Scoring Tool Questions: Length of Stay (in days): 4 - 6 Was the patient admitted via the E.D.?: Yes Comorbidities: Cerebrovascular Disease and Congestive Heart Failure E.D. Visits: 1 Answers: Total Score: 11 Risk of Readmission: High Risk Care Management Discharge Plan Reason for Hospitalization: Acute CHF Discharge Plan: Zane will be discharged to [facility] for STR. She is being transported via [facility]. Patient will follow up with community providers and continue per her discharge plan of care. Patient/Family Education Needs: Review discharge instructions and plan. Discuss ask me three. Services Needed at Discharge: Jail Facility ([facility], coordinated by STACY) and Transportation ([employer] W/[facility] van, 1pm, coordinated by STACY and reviewed with Leigh Ann via phone. )
--- NOTE | 2025-06-07 10:48 | PTTR_ITS ---
PT Notes Visit Reasons: Acute Exacerbation of CHF,Acute Hypoxic Resp Failu Date: 06/07/2025 PRECAUTIONS: Fall, standard, Activity as tolerated. SUBJECTIVE: Pt in recliner when approached for therapy this morning, OBJECTIVE: +swelling on right arm, ecchymosis on the inner aspect of right elbow and arm PAIN: 4/10 right arm VITALS: monitored by nursing Therapeutic Activities 18567: Direct one-on-one instruction in dynamic activities to improve functional performance. BED MOBILITY/TRANSFERS Rolling L/R: supervision Supine-sit: supervision Sit-supine: supervision Sit-stand: supervision Stand-sit: SBA Bed-Chair: SBA Chair-bed: SBA Provided skilled cues and instruction on performance and technique throughout. Gait Training [id number]: Direct one-on-one instruction and skilled instruction in: Employing an assistive device Modified weight-bearing status Movement sequencing Turning and movement with proper form Provided verbal cues for equipment management and technique Provided instruction in gait pattern Patient education regarding pacing and breathing techniques to maximize activity tolerance GAIT Assistive Device: FWW Weight bearing: FWB Assist: SBA Distance: 150'x2 Deviation: Slow bennett speed, low step height, short step length Neuromuscular Re-education 64105: Activities that facilitate re-education of movement balance, posture, coordination, and proprioception or kinesthetic sense, requiring skilled tactile and verbal cues Exercises/techniques: Sit to stand from recliner to FWW 5x1set Walking backwards and hand placement for safety when doing transfers Standing march Standing without UE support ASSESSMENT: pt tolerated activity well, had to emphasize on proper body positioning and hand placement prior to transitioning from standing to sitting for safety with pt and pt daughter reporting understanding. PLAN: Continue with balance training, global strengthening and general conditioning for improved safety, mobility and activity tolerance until pt is r peewee for DC. TREATMENT CODE/TIME: [id number] 25mins (10:20-10:45am)
[2025-06-07 11:12] VITALS: BP 136/47; PULSE 57; RESP 17; TEMP 35.9; O2SAT 98
[2025-06-07 12:03] VITALS: O2SAT 95
== END 2025-06-07 12:50 | disposition skilled nursing facility (03) | DRG 291 ==
LOC: ER 11:42 → MS 13:06
PROVIDERS: Admitting Provider Family Medicine; Emergency Provider General Practice; PCP Nurse Practitioner Family; Responsible Provider Family Medicine; Visit Provider Family Medicine
DX: I11.0 Hypertensive heart disease with heart failure (principal); E87.1 Hypo-osmolality and hyponatremia; I25.10 Atherosclerotic heart disease of native coronary artery without angina pectoris; E78.5 Hyperlipidemia, unspecified; E03.9 Hypothyroidism, unspecified; Z86.73 Personal history of transient ischemic attack (TIA), and cerebral infarction without residual deficits; R06.09 Other forms of dyspnea; E66.811 Obesity, class 1; I50.33 Acute on chronic diastolic (congestive) heart failure; H34.12 Central retinal artery occlusion, left eye; Z68.35 Body mass index [BMI] 35.0-35.9, adult; M85.80 Other specified disorders of bone density and structure, unspecified site; M16.0 Bilateral primary osteoarthritis of hip; I08.3 Combined rheumatic disorders of mitral, aortic and tricuspid valves
CPT/HCPCS: 00123; 36415; 71275; 80048; 80053; 85027; 93005; 93306; 93308; 96374; 97112; 97162; 97530; 99285; J1650; 71045; 81003; 81015; 83605; 83735; 83880; 84443; 84484; 85025; 93010; 94760; 99223; 99231; 99233; 99238; J1938; J3490

== ENCOUNTER 2025-06-08 21:12 | Outpatient (REF) | payer BC, MEDICARE, SELFPAY ==
[2025-06-08 21:55] LABS: Sodium, Urine < 50 mmol/L
== END 2025-06-08 21:13 | disposition home or self-care (01) ==
LOC: LBN 21:12
PROVIDERS: PCP Nurse Practitioner Family; Visit Provider Nurse Practitioner Adult Health
DX: E87.1 Hypo-osmolality and hyponatremia (principal)
CPT/HCPCS: 84300

== ENCOUNTER 2025-06-09 14:34 | Inpatient (IN) | payer MEDICARE, BC, SELFPAY ==
[2025-06-09] VITALS (40 sets, daily range): BP systolic 142–161; BP diastolic 42–83; PULSE 56–63; RESP 11–27; TEMP 36.5–36.8; O2SAT 81–99
--- NOTE | 2025-06-09 14:47 | ED.GENADUL_ITS ---
Discharge Plan Disposition Patient [facility] Condition: Stable Discharge Details Clinical Impression: Hyponatremia, Localized swelling of right upper extremity Primary Care Provider: Hang Rene ED Provider: Alexandre Herbert Amberson Meds and New Rx's Prescriptions: No Action amlodipine 5 mg tablet See Rx Instructions PO BID Qty: 270 4RF Rx Instructions: 10 mg po qam and 5 mg po qpm orally twice a day; atorvastatin 20 mg tablet 40 mg PO DAILY Qty: 180 4RF clopidogrel 75 mg tablet 75 mg PO DAILY Qty: 90 3RF losartan 50 mg tablet 100 mg PO DAILY Qty: 180 3RF Rx Instructions: [facility] levothyroxine 100 mcg tablet 100 mcg PO DAILY Qty: 90 4RF potassium chloride 20 mEq Tablet Extended Release 40 meq PO BID Qty: 60 0RF metoprolol succinate 50 mg tablet extended release 24 hr 50 mg PO DAILY Qty: 30 0RF furosemide [Lasix] 20 mg tablet 40 mg PO DAILY Qty: 60 0RF HPI General Mode of arrival: EMS . Date/Time Provider Initiated Documentation: 06/09/25 14:40 . Limitations to Documentation: no limitations . Information obtained by: patient . History of Present Illness 89 year old F presents to the emergency department with the chief complaint of rehab unable to get labs drawn, described as mild, Patient started experiencing this hour(s) (2) and it has been constant. No relieving factors improve symptom(s), No exacerbating factors reported . Patient notes denies chest pain and shortness of breath. Patient did receive the following treatments prior to arrival, none Related Data Home Medications Medication Instructions Recorded Confirmed amlodipine 5 mg tablet See Rx Instructions PO BID # 270 03/11/25 06/09/25 tabs atorvastatin 20 mg tablet 40 mg (2 x 20 mg) PO DAILY # 180 03/11/25 06/09/25 tabs clopidogrel 75 mg tablet 75 mg PO DAILY #90 tabs 02/2506/09/25 levothyroxine 100 mcg tablet 100 mcg PO DAILY #90 tabs 03/11/25 06/09/25 losartan 50 mg tablet 100 mg (2 x 50 mg) PO DAILY #180 03/11/25 06/09/25 tab-caps furosemide 20 mg tablet (Lasix) 40 mg (2 x 20 mg) PO D AILY #60 tabs 06/06/25 06/09/25 metoprolol succinate 50 mg 50 mg PO DAILY #30 tabs 05/2106/09/25 tablet,extended release 24 hr potassium chloride 20 mEq 40 meq (2 x 20 mEq) PO BID # 60 tabs 06/06/25 06/09/25 tablet,extended release Previous Rx's Medication Instructions Recorded amlodipine 5 mg tablet See Rx Instructions PO BID # 270 03/11/25 tabs atorvastatin 20 mg tablet 40 mg (2 x 20 mg) PO DAILY # 180 03/11/25 tabs clopidogrel 75 mg tablet 75 mg PO DAILY #90 tabs 02/25 12/19 levothyroxine 100 mcg tablet 100 mcg PO DAILY #90 tabs 03/11/25 losartan 50 mg tablet 100 mg (2 x 50 mg) PO DAILY #180 03/11/25 tab-caps furosemide 20 mg tablet (Lasix) 40 mg (2 x 20 mg) PO D AILY #60 tabs 06/06/25 metoprolol succinate 50 mg 50 mg PO DAILY #30 tabs 05/21 tablet,extended release 24 hr potassium chloride 20 mEq 40 meq (2 x 20 mEq) PO BID # 60 tabs 06/06/25 tablet,extended release Allergies Allergy/AdvReac Type Severity Reaction Status Date / Time lisinopril AdvReac Severe Suicidal Unverified 06/09/25 14:37 Ideation General Stated Complaint: Recheck ESPINOZA: 4 Review of Systems All systems reviewed & are unremarkable except as noted in HPI and below Constitutional Constitutional: Denies chills and Denies fever(s) Cardiovascular Cardiovascular: Denies chest pain and Denies dyspnea Respiratory Respiratory: Denies cough and Denies dyspnea Gastrointestinal Gastrointestinal: Denies abdominal pain, Denies nausea and Denies vomiting Exam Const General: no acute distress Orientation: alert [facility] Head: normal to inspection Ears: external ears normal General nose exam: external nose normal Mouth: moist mucous membranes Eyes General: appearance normal, both eyes and all related structures Neck Neck: normal visual inspection Resp Effort & Inspection: normal respiratory effort and able to speak in complete sentences Auscultation: clear to auscultation bilaterally Cardio Rate: regular rate Skin General skin exam: no rashes or lesions noted Neuro General: patient alert and patient oriented x3 Extrem General: normal to inspection Psych Mental Status: mental status grossly normal Course Vital Signs Vital signs: Vital Signs Temperature 36.6 C 06/09/25 14:31 Pulse 63 06/09/25 14:31 Respiratory Rate 18 06/09/25 14:31 Blood Pressure 159/83 H 06/09/25 14:31 Pulse Oximetry 98 06/09/25 14:31 Temperature 36.6 C 06/09/25 14:31 Pulse 63 06/09/25 14:31 Respiratory Rate 18 06/09/25 14:31 Blood Pressure 159/83 H 06/09/25 14:31 Pulse Oximetry 98 06/09/25 14:31 Oxygen Delivery Method Room Air 06/09/25 14:31 Oxygen Flow Rate 0 06/09/25 14:31 Pain Level 4 06/09/25 14:31 Medical Decision Making 89-year-old female with a history of hyponatremia, recent admission for CHF, who was discharged to rehab comes in after she was getting labs drawn at rehab to check her sodium level and they were unable to get the labs drawn so she was sent here. Patient is well-appearing speaking in full sentences. She denies any dyspnea, chest pain. She is in no distress and has stable vital signs. Has very mild pitting edema of her ankles otherwise no JVD. She is here after unsuccessful lab draw and will do CBC and CMP and reassess. Dr. Nguyễn hospitalist to help take care of her advise she has been having issues with some persistent right arm swelling and requested a DVT study we will also add on urine sodium and urinalysis. She will plan to likely admit as well. Ultrasound does not show a DVT but does have a hematoma, she did have a humerus fracture a year ago and denies any other recent trauma. Will obtain x-rays to evaluate the humerus fracture. X-ray shows continued humerus fracture, discussed with Dr. Foss from orthopedics and advised there is nothing acutely to do for this even a sling. Plan to admit to the hospitalist Differential Diagnosis Differential Diagnosis: hyponatremia, difficulty blood draw Medical Records Medical records reviewed: Yes I reviewed the patient's medical records. Lab Data Lab results reviewed: Yes I reviewed the patient's lab results. PFSH All Active Problems (Updated 06/09/25 @ 17:23 by Alexandre Herbert MD) Localized swelling of right upper extremity (Acute) Benign essential hypertension (Acute) Chronic hyponatremia (Acute) CAD (coronary artery disease) (Chronic) Hyponatremia (Acute) Heart failure (Acute) Edema (Acute) Dyspnea (Acute) Weight gain (Acute) Fracture of humeral shaft, right, closed (Acute 05/05/24) Obesity (Chronic) a. Stage I. Arthritis (Acute) Essential hypertension (Acute 09/03/13) Hyperlipidemia (Acute) Hyperparathyroidism, unspecified (Acute 07/13/12) Has seen endo at [facility]- bx, benign (2015 @) 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 Edwards,[facility] Hypothyroidism (Acute 03/08/13) Osteopenia (Acute) Osteoarthritis, hip, bilateral (Acute) glucosamine Vision, loss, sudden (Acute) left eye 10/27/22 CRAO (central retinal artery occlusion) (Acute) Medical History (Updated 06/09/25 @ 17:23 by Alexandre Herbert MD) Advance care planning Acute CVA (cerebrovascular accident) End of life care Advanced directives. Patient completed her advance directives and herCOLST forms. 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 History of tobacco use Fracture of thoracic spine History of hypercalcemia a. With elevate TTH secondary to a benign adenoma now diminished in size. Smoking history a. Quit approximately 50 years ago after 10 pack years. Unstable angina a. Recurrent chest pressure with left arm weakness x 4 - 6 weeks. b. Multiple cardiac risk factors. Surgical History History of cardiac cath (12/17/13) Normal coronaries Thyroid (~2005) BX; RIGHT Skin Cancer Removal 09/07/16 Para-thyroid adenoma surgery (~2014) Cardiac cath (~2013) Family History Mother , age 81 Essential hypertension Hypothyroid Hypertension Heart disease Father , age 71 Diabetes Essential hypertension Heart disease Myocardial infarction Sister Essential hypertension Heart disease Breast cancer Brother , age 83 Essential hypertension Depression Stroke Heart disease Maternal Grandfather , age 39 Pneumonia Heart disease Paternal Grandfather , age 72 Heart disease Alcohol abuse Depression Maternal Grandmother , age 36 Heart disease Pneumonia Paternal Grandmother , age 70 Heart disease Depression Son Essential hypertension Depression Alcohol abuse Son Alcohol abuse Essential hypertension Son , AGE 55 Substance abuse Diabetes Essential hypertension Heart disease Hyperlipidemia Depression Son Essential hypertension Daughter Hypertension Sister No problems noted. Social History (Updated 11/12/24 @ 12:31 by Jocelyn Martell) Smoking/Tobacco Use Status: Former Tobacco Use tobacco type: cigarettes Quit Date: 07/28/1967 Tobacco: How many years used: 10 Quit status: quit date established Second Hand Exposure: Yes Smoking risk assessment performed?: Yes Alcohol Intake: current Alcohol Intake frequency: holidays/special occasions only Previous attempts at quittin Drug use: Never Substance use type: does not use Counseling given: No Adopted: No Caregiver/Support person: No Foster care: No Household members: none Housing: house Number of Children: 5 number of grandchildren: 7 Communication Needs: None Education Level: college Do you need help understanding health information?: Never current occupation: Retired RN Pets and animals: No Sexually active: No Do you think of yourself as: straight/heterosexual Current gender identity: female What is your relationship status?: How often do you talk on the phone with friends or family?: three or more times per week How often do you get together with friends or relatives?: twice per week How often do you attend confucianist or adventism services?: 1-3 times per year Do you belong to any clubs or organized social groups?: no Panel score (0-1 are the most socially isolated patients): 1 What type of physical activity do you participate in: walking Duration: 15-30 minutes/day Frequency: 5-6 times per week Gayle/Presybeterian: [employer] Special gayle needs: No Agree to transfusion: Yes Seatbelt use: always Helmet use: No Drive intox or ride w/intox bus driver: No Working smoke detector in home: Yes Carbon monox detector in home: Yes Firearms in home: No Do you feel safe at home: Yes Victim of physical abuse: No Victim of emotional abuse: No Victim of sexual abuse: No Would you like helpful sources: No
--- NOTE | 2025-06-09 15:00 | DI.US_ITS ---
Exam(s) US UPPER EXTREMITY VENOUS RT EXAM: US UPPER EXTREMITY VENOUS RT CLINICAL HISTORY: right arm swelling. TECHNIQUE: Ultrasound examination of the right upper extremity venous system(s) is performed using grayscale, color-flow, and spectral Doppler analysis. COMPARISON: CR XR HUMERUS RT from 05/12/2024 CR XR HUMERUS RT from 08/03/2024 CR XR PORTABLE CHEST AP from 06/03/[address] CHEST PE CTA from 06/04/2025 FINDINGS: The right internal jugular, axillary, subclavian, cephalic, basilic, brachial, radial, and ulnar veins are patent without evidence of thrombosis. There is soft tissue swelling throughout the arm. There is a focal hematoma measuring 13 x 3.5 x 6.8 cm the upper posteromedial arm.. IMPRESSION: No DVT. Large hematoma in the upper posteromedial arm. A markedly displaced fracture of the proximal humerus is noted on the recent chest CT. Findings called to Dr. Herbert of the emergency department. DATA REPOSITORY:
[2025-06-09] MEDS: Furosemide 40 MG/4 ML VIAL IVP (15:40)
[2025-06-09 15:43] LABS: Abs Immature Grans 0.02 10^3/uL (0.0-0.06); HCT 29.4 % (36.0-46.0); HGB 10.5 g/dL (11.2-15.7); Immature Grans % 0.2 %; MCH 30.8 pg (27.0-33.0); MCHC 35.7 % (32.0-36.0); MCV 86 fL (80-95); MPV 11.1 fL (8.0-11.0); Platelet Count 254 10^3/uL (130-400); RBC 3.41 10^6/uL (3.93-5.22); RDW 12.9 % (11.7-14.6); RDW-SD 40.9 fL; WBC 9.71 10^3/uL (4.4-10.8)
[2025-06-09 16:02] LABS: INR 1.0 (0.9-1.1); PTT Activated 34.0 sec (20.6-30.2); Prothrombin Time 10.0 sec (9.1-11.1)
[2025-06-09 16:04] LABS: Glucose Negative (Negative)
[2025-06-09 16:09] LABS: Magnesium 1.6 mg/dL (1.6-2.6)
[2025-06-09 16:22] LABS: ALT 17 U/L (10-49); AST 20 U/L (<34); Albumin 4.2 g/dL (3.4-5.0); Alkaline Phosphatase 118 U/L (46-116); Anion Gap 7 mmol/L (3-11); BUN 9 mg/dL (9-23); Bilirubin, Total 1.00 mg/dL (0.2-1.2); CO2 26.0 mmol/L (20.0-31.0); Calcium 8.7 mg/dL (8.3-10.6); Chloride 86 mmol/L (98-107); Glucose 103 mg/dL (74-106); Potassium 4.5 mmol/L (3.5-5.1); Sodium 119 mmol/L (136-145); Total Protein 6.6 g/dL (5.7-8.2)
[2025-06-09 16:56] LABS: C & S Indicated? No; RBC 0-2 HPF (0-2)
--- NOTE | 2025-06-09 17:00 | DI.RAD_ITS ---
Exam(s) XR HUMERUS RT EXAM: XR HUMERUS RT CLINICAL HISTORY: fracture. TECHNIQUE: 2D digital imaging was performed. COMPARISON: CR XR HUMERUS RT from 08/03/2024 FINDINGS: BONES: Previously noted fracture of the proximal 3rd of the humerus is nonunited. There is separation of fracture fragments approximately 1 cm on the AP view. On the lateral view, there is significant posterior angulation of the distal fragment. This has significantly worsened compared with the prior exam. There are few other small comminuted fragments. No bony destructive lesion is seen. Visualized portion of elbow and shoulder joints are unremarkable. SOFT TISSUE: Marked soft tissue swelling is present. An IV is noted in the antecubital fossa. IMPRESSION: Displaced, severely angulated, nonunited fracture of the proximal humeral shaft. DATA REPOSITORY: RADIATION DOSE DELIVERED:
--- NOTE | 2025-06-09 17:36 | W.PM.HP.N ---
Date of service: 06/09/25 Time of Service: 16:00 Assessment and Plan Assessment and plan (1) Acute hyponatremia: Status: Acute Assessment and plan: Chronic hyponatremia in the low 130's. Sodium 120-122 during Jun 03 hospitalization thought to be transient SIADH due to steroid use during recent pneumonia Hyponatremia workup deferred at that time. On arrival Jun 09, Na 119, asymptomatic. Urine studies ordered: urine sodium is done in house, urine osmolality is a send out Serum osmolality also ordered, also a send out Lipid panel ordered for the morning Will defer hypertonic saline pending urine sodium result Furosemide 40 IV given in ED BMP q4h, anticipating improvement with diuresis (2) Closed right humeral fracture: Status: Acute Assessment and plan: Patient fell May 05 2024 and humerus fracture was noted at that time. Orthopedic consult and care were non-operative with fracture alignment and some healing noted in clinic Displacement seen on CTA for PE May 19, noted to be not worse on June 04 CTA for PE Per patient she has had chronic edema in that arm and does not use it very much. Imaging repeated Jun 09 with hematoma seen on US. Orthopedic surgery consulted for evaluation. Hold VTE chemoprophylaxis for hematoma. Continue DAPT. (3) (HFpEF) heart failure with preserved ejection fraction: Status: Acute Assessment and plan: New diagnosis during Jun 03 hospitalization Echo significant for LVEF 60%, severely dilated LA, sclerosis of aortic valve, mild/moderate mitral and tricuspid regurgitation [facility] [place] consulted, recommending continuation of furosemide and initiation of spironolactone, metoprolol changed from tartrate to succinate Moderate edema on Jun 09 arrival compared with Jun 07 Continue PO furosemide and PO spironolactone (4) Essential hypertension: Status: Acute Assessment and plan: Continue home regimen, losartan, metoprolol, amlodipine (5) CAD (coronary artery disease): Status: Chronic Assessment and plan: Continue home clopidogrel, aspirin History of Present Illness History of Present Illness Chief Complaint: edema Narrative: Zane Nash is an 89 year old woman returning to the ED on June 09 with right arm swelling. She had been hospitalized Jun 03 for heart failure exacerbation and chronic hyponatremia exacerbation, with chronic right arm edema. At [facility], staff had difficulty drawing labs for hyponatremia monitoring and she was sent to ED for assistance with lab draw. Patient reports that she is tired of being poked, but otherwise is feeling well after having good sleep and PT sessions at the rehab center. Her daughter, who is visiting from [place], is at bedside and is hoping her mother can continue daily PT here. Patient has no chest pain, no shortness of breath, no abdominal pain, no N/V/D. In the ED her blood pressure was elevated 150's / 80's, otherwise vitals were unremarkable. US was done on the right upper extremity and showed a large hematoma at the site of chronic displaced right humerus fracture, which is noted to have significantly worsened on XR right humerus. Sodium 119 and chloride 86, worsened from Jun 07 discharge. BNP 402, improved over prior. Orthopedic surgery was contacted and will consult in the morning. She was given furosemde 40 IV. PMH includes newly diagnosed HFpEF with ejection fraction 60% on Jun 03 echo also noting severely dilated left atrium and mild/mod MR and TR. Chronic right humerus fracture as above. Chronic hyponatremia with baseline in the low 130's, with range 120-122 during Jun 03-. HTN on metoprolol, losartan, amlodipine. She had been started on furosemide and spironolactone daily as of Jun 07 discharge. PFSH All Active Problems (Updated 06/09/25 @ 19:37 by Salvador Guevara MD) Closed right humeral fracture (Acute) Acute hyponatremia (Acute) (HFpEF) heart failure with preserved ejection fraction (Acute) Localized swelling of right upper extremity (Acute) Benign essential hypertension (Acute) Chronic hyponatremia (Acute) CAD (coronary artery disease) (Chronic) Hyponatremia (Acute) Heart failure (Acute) Edema (Acute) Dyspnea (Acute) Weight gain (Acute) Fracture of humeral shaft, right, closed (Acute 05/05/24) Obesity (Chronic) a. Stage I. Arthritis (Acute) Essential hypertension (Acute 09/03/13) Hyperlipidemia (Acute) Hyperparathyroidism, unspecified (Acute 07/13/12) [place] [facility], [place] (2014 @) 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 Edwards,[facility] Hypothyroidism (Acute 03/08/13) Osteopenia (Acute) Osteoarthritis, hip, bilateral (Acute) glucosamine Vision, loss, sudden (Acute) left eye 10/27/22 CRAO (central retinal artery occlusion) (Acute) Medical History (Updated 06/09/25 @ 19:37 by Salvador Guevara MD) Advance care planning Acute CVA (cerebrovascular accident) End of life care Advanced directives. Patient completed her advance directives and herCOLST forms. 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 History of tobacco use Fracture of thoracic spine History of hypercalcemia a. With elevate TTH secondary to a benign adenoma now diminished in size. Smoking history a. Quit approximately 50 years ago after 10 pack years. Unstable angina a. Recurrent chest pressure with left arm weakness x 4 - 6 weeks. b. Multiple cardiac risk factors. Surgical History History of cardiac cath (12/17/13) Normal coronaries Thyroid (~2005) BX; RIGHT Skin Cancer Removal 09/07/16 Para-thyroid adenoma surgery (~2014) Cardiac cath (~2013) Family History Mother , age 81 Essential hypertension Hypothyroid Hypertension Heart disease Father , age 71 Diabetes Essential hypertension Heart disease Myocardial infarction Sister Essential hypertension Heart disease Breast cancer Brother , age 83 Essential hypertension Depression Stroke Heart disease Maternal Grandfather , age 39 Pneumonia Heart disease Paternal Grandfather , age 72 Heart disease Alcohol abuse Depression Maternal Grandmother , age 36 Heart disease Pneumonia Paternal Grandmother , age 70 Heart disease Depression Son Essential hypertension Depression Alcohol abuse Son Alcohol abuse Essential hypertension Son , AGE 55 Substance abuse Diabetes Essential hypertension Heart disease Hyperlipidemia Depression Son Essential hypertension Daughter Hypertension Sister No problems noted. Social History (Updated 11/12/24 @ 12:31 by Jocelyn Martell) Smoking/Tobacco Use Status: Former Tobacco Use tobacco type: cigarettes Quit Date: 07/28/1967 Tobacco: How many years used: 10 Quit status: quit date established Second Hand Exposure: Yes Smoking risk assessment performed?: Yes Alcohol Intake: current Alcohol Intake frequency: holidays/special occasions only Previous attempts at quittin Drug use: Never Substance use type: does not use Counseling given: No Adopted: No Caregiver/Support person: No Foster care: No Household members: none Housing: house Number of Children: 5 number of grandchildren: 7 Communication Needs: None Education Level: college Do you need help understanding health information?: Never current occupation: Retired RN Pets and animals: No Sexually active: No Do you think of yourself as: straight/heterosexual Current gender identity: female What is your relationship status?: How often do you talk on the phone with friends or family?: three or more times per week How often do you get together with friends or relatives?: twice per week How often do you attend scientologist or episcopal services?: 1-3 times per year Do you belong to any clubs or organized social groups?: no Panel score (0-1 are the most socially isolated patients): 1 What type of physical activity do you participate in: walking Duration: 15-30 minutes/day Frequency: 5-6 times per week Gayle/Pentecostalism: Restorationist Special gayle needs: No Agree to transfusion: Yes Seatbelt use: always Helmet use: No Drive intox or ride w/intox cdl bulk driver: No Working smoke detector in home: Yes Carbon monox detector in home: Yes Firearms in home: No Do you feel safe at home: Yes Victim of physical abuse: No Victim of emotional abuse: No Victim of sexual abuse: No Would you like helpful sources: No Meds Allergies and Home Medications Allergies Allergy/AdvReac Type Severity Reaction Status Date / Time lisinopril AdvReac Severe Suicidal Unverified 06/09/25 14:37 Ideation Home Medications Medication Instructions Recorded Confirmed Type amlodipine 5 mg tablet See Rx Instructions PO BID #270 03/11/25 06/09/25 Rx tabs atorvastatin 20 mg tablet 40 mg (2 x 20 mg) PO DAILY #180 03/11/25 06/09/25 Rx tabs clopidogrel 75 mg tablet 75 mg PO DAILY #90 tabs 03/11/25 06/09/25 Rx levothyroxine 100 mcg tablet 100 mcg PO DAILY #90 tabs 03/11/25 06/09/25 Rx losartan 50 mg tablet 100 mg (2 x 50 mg) PO DAILY #180 03/11/25 06/09/25 Rx tab-caps furosemide 20 mg tablet (Lasix) 40 mg (2 x 20 mg) PO DAILY #60 tabs 06/06/25 06/09/25 Rx metoprolol succinate 50 mg 50 mg PO DAILY #30 tabs 06/06/25 06/09/25 Rx tablet,extended release 24 hr potassium chloride 20 mEq 40 meq (2 x 20 mEq) PO BID #60 tabs 06/06/25 06/09/25 Rx tablet,extended release Exam Narrative Exam Narrative: General: This is a pleasant, elderly woman in no distress HEENT: Normocephalic, atraumatic CV: RRR. 1+ pitting edema BLE Resp: CTAB Abd: soft, NTND MSK: voluntary motion x4. RUE edematous. Neuro: awake, alert, no focal deficits Results Labs 06/09/25 15:31 06/09/25 15:31 Labs: Laboratory Results - last 24 hr 06/09/25 06/09/25 15:31 15:52 WBC 9.71 RBC 3.41 L Hgb 10.5 L Hct 29.4 L MCV 86 MCH 30.8 MCHC 35.7 RDW 12.9 Plt Count 254 MPV 11.1 H Immature Gran % 0.2 Neutrophils % 79.4 Lymphocytes % 10.1 Monocytes % 8.7 Eosinophils % 1.3 Basophils % 0.3 Nucleated RBC % 0.0 Absolute Neutrophils 7.71 H Absolute Lymphocytes 0.98 L Absolute Monocytes 0.84 H Absolute Eosinophils 0.13 Absolute Basophils 0.03 PT 10.0 INR 1.0 APTT 34.0 H Sodium 119 L* Potassium 4.5 Chloride 86 L Carbon Dioxide 26.0 Anion Gap 7 BUN 9 Creatinine 0.5 L Est GFR (CKD-EPI 2020) 127.87 Glucose 103 Calcium 8.7 Magnesium 1.6 Total Bilirubin 1.00 AST 20 ALT 17 Alkaline Phosphatase 118 H NT-Pro-B Natriuret Pep 402 H Total Protein 6.6 Albumin 4.2 Urine Color Yellow Urine Clarity Clear Urine pH 6.0 Ur Specific [place] 1.015 Urine Protein Negative Urine Ketones Negative Urine Blood Negative Urine Nitrite Negative Urine Bilirubin Negative Urine Urobilinogen 0.2 Ur Leukocyte Esterase Small H Urine RBC 0-2 Urine WBC 5-10 Ur Epithelial Cells Rare Urine Crystals Negative Urine Bacteria Negative Urine Mucus Trace Urine Other Rare Transitional Ur Culture Indicated? No Urine Glucose Negative Last Vital Signs Temp 36.6 C 06/09/25 14:31 Pulse 60 06/09/25 15:20 Resp 17 06/09/25 15:30 BP 159/42 H 06/09/25 15:16 Pulse Ox 97 06/09/25 15:20 Time Spent Time spent with Patient: 40-54 minutes Time was spent: preparing to see the patient(eg.review tests), obtaining and/or reviewing separately otained hiistory, ordering medications,tests, procedures, referring, communicating with other health rn urgent care, indepentently interpreting results, counseling the patient and care coordination
[2025-06-09 18:51] LABS: Sodium, Urine 53 mmol/L
[2025-06-09] MEDS: amLODIPine 5 MG TAB PO (20:42)
[2025-06-09] MEDS: Normal Saline Flush 10 ML SYR IVP (20:42)
[2025-06-09 21:39] LABS: Anion Gap 6 mmol/L (3-11); BUN 7 mg/dL (9-23); CO2 27.2 mmol/L (20.0-31.0); Calcium 8.7 mg/dL (8.3-10.6); Chloride 86 mmol/L (98-107); Glucose 103 mg/dL (74-106); Potassium 3.9 mmol/L (3.5-5.1); Sodium 119 mmol/L (136-145)
[2025-06-10] VITALS (77 sets, daily range): BP systolic 114–153; BP diastolic 34–59; PULSE 52–81; RESP 9–26; TEMP 35.9–36.2; O2SAT 88–100
[2025-06-10] MEDS: SODIUM CHLORIDE 3% 500 ML 30 ML IV INF (00:44)
[2025-06-10 00:55] LABS: Anion Gap 4.9 mmol/L (3-11); BUN 7 mg/dL (9-23); CO2 27.8 mmol/L (20.0-31.0); Calcium 8.4 mg/dL (8.3-10.6); Chloride 87 mmol/L (98-107); Glucose 87 mg/dL (74-106); Potassium 3.6 mmol/L (3.5-5.1); Sodium 120 mmol/L (136-145)
[2025-06-10 04:31] LABS: HCT 28.9 % (36.0-46.0); HGB 10.2 g/dL (11.2-15.7); MCH 30.7 pg (27.0-33.0); MCHC 35.3 % (32.0-36.0); MCV 87 fL (80-95); MPV 10.8 fL (8.0-11.0); Platelet Count 246 10^3/uL (130-400); RBC 3.32 10^6/uL (3.93-5.22); RDW 12.8 % (11.7-14.6); RDW-SD 40.5 fL; WBC 7.12 10^3/uL (4.4-10.8)
[2025-06-10 04:49] LABS: Magnesium 1.6 mg/dL (1.6-2.6)
[2025-06-10 04:50] LABS: Cholesterol 157 mg/dL (<200); HDL Cholesterol 79 mg/dL (>40)
[2025-06-10 04:53] LABS: TSH (W/Ref FT4) 4.04 uIU/mL (0.55-4.78)
[2025-06-10 05:05] LABS: Anion Gap 4 mmol/L (3-11); BUN 6 mg/dL (9-23); CO2 28.0 mmol/L (20.0-31.0); Calcium 8.3 mg/dL (8.3-10.6); Chloride 89 mmol/L (98-107); Glucose 83 mg/dL (74-106); Potassium 3.7 mmol/L (3.5-5.1); Sodium 121 mmol/L (136-145)
[2025-06-10] MEDS: Levothyroxine 100 MCG TAB PO (06:40)
--- NOTE | 2025-06-10 07:36 | OCONE_ITS ---
Date of service: 06/10/25 Time of Service: 07:36 History of Present Illness Narrative: Patient reports that she has not been having much right upper extremity discomfort but has limited use of her arm. She reports difficulty lifting her right arm without assistance from the other side. She denies any new right upper extremity injuries since humeral shaft fracture on 05/05/24. 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 Does not need any sling or splint for this chronic fracture. She may follow up with trauma orthopedic surgery at [facility] if interested in surgical repair. She remains high risk given advanced age and significant medical comorbidities, recently worsening. 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 Stage I. Arthritis (Acute) Essential hypertension (Acute 09/03/13) Hyperlipidemia (Acute) Hyperparathyroidism, unspecified (Acute 07/13/12) Has seen endo at [facility] [place]- bx, benign (2014 @) 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 Edwards,[facility] [place] Hypothyroidism (Acute 03/08/13) Osteopenia (Acute) Osteoarthritis, hip, bilateral (Acute) glucosamine Vision, loss, sudden (Acute) left eye 10/27/22 CRAO (central retinal artery occlusion) (Acute) Medical History (Updated 06/10/25 @ 07:40 by BIANCA Thomas) Advance care planning Acute CVA (cerebrovascular accident) End of life care Advanced directives. Patient completed her advance directives and herCOLST forms. 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 History of tobacco use Fracture of thoracic spine History of hypercalcemia a. With elevate TTH secondary to a benign adenoma now diminished in size. Smoking history a. Quit approximately 50 years ago after 10 pack years. Unstable angina a. Recurrent chest pressure with left arm weakness x 4 - 6 weeks. b. Multiple cardiac risk factors. Surgical History History of cardiac cath (12/17/13) Normal coronaries Thyroid (~2005) BX; RIGHT Skin Cancer Removal 09/07/16 Para-thyroid adenoma surgery (~2014) Cardiac cath (~2013) Family History Mother , age 81 Essential hypertension Hypothyroid Hypertension Heart disease Father , age 71 Diabetes Essential hypertension Heart disease Myocardial infarction Sister Essential hypertension Heart disease Breast cancer Brother , age 83 Essential hypertension Depression Stroke Heart disease Maternal Grandfather , age 39 Pneumonia Heart disease Paternal Grandfather , age 72 Heart disease Alcohol abuse Depression Maternal Grandmother , age 36 Heart disease Pneumonia Paternal Grandmother , age 70 Heart disease Depression Son Essential hypertension Depression Alcohol abuse Son Alcohol abuse Essential hypertension Son , AGE 55 Substance abuse Diabetes Essential hypertension Heart disease Hyperlipidemia Depression Son Essential hypertension Daughter Hypertension Sister No problems noted. Social History (Updated 11/12/24 @ 12:31 by Jocelyn Martell) Smoking/Tobacco Use Status: Former Tobacco Use tobacco type: cigarettes Quit Date: 07/28/1967 Tobacco: How many years used: 10 Quit status: quit date established Second Hand Exposure: Yes Smoking risk assessment performed?: Yes Alcohol Intake: current Alcohol Intake frequency: holidays/special occasions only Previous attempts at quittin Drug use: Never Substance use type: does not use Counseling given: No Adopted: No Caregiver/Support person: No Foster care: No Household members: none Housing: house Number of Children: 5 number of grandchildren: 7 Communication Needs: None Education Level: college Do you need help understanding health information?: Never current occupation: Retired RN Pets and animals: No Sexually active: No Do you think of yourself as: straight/heterosexual Current gender identity: female What is your relationship status?: How often do you talk on the phone with friends or family?: three or more times per week How often do you get together with friends or relatives?: twice per week How often do you attend buddhism or jewish services?: 1-3 times per year Do you belong to any clubs or organized social groups?: no Panel score (0-1 are the most socially isolated patients): 1 What type of physical activity do you participate in: walking Duration: 15-30 minutes/day Frequency: 5-6 times per week Gayle/Anabaptism: Uatsdin Special gayle needs: No Agree to transfusion: Yes Seatbelt use: always Helmet use: No Drive intox or ride w/intox services delivery driver: No Working smoke detector in home: Yes Carbon monox detector in home: Yes Firearms in home: No Do you feel safe at home: Yes Victim of physical abuse: No Victim of emotional abuse: No Victim of sexual abuse: No Would you like helpful sources: No Exam Narrative Exam Narrative: Exam of the right upper extremity shows significant medial elbow ecchymosis. No skin lesions. IV present in the right AC. Demonstrates active wrist and elbow flexion and extension. Attempt at active shoulder motion goes through the humeral shaft nonunion. Tolerates passive forward flexion. Sensation intact to light touch in the axillary nerve distribution. Results Last Vital Signs Temp 98.2 F 06/09/25 22:20 Pulse 60 06/10/25 07:20 Resp 11 L 06/10/25 07:20 BP 153/48 H 06/10/25 06:43 Pulse Ox 99 06/10/25 07:20 Labs 06/10/25 04:20 06/10/25 04:20 Labs: Laboratory Results - last 24 hr 06/09/25 06/09/25 06/09/25 15:31 15:52 21:00 WBC 9.71 RBC 3.41 L Hgb 10.5 L Hct 29.4 L MCV 86 MCH 30.8 MCHC 35.7 RDW 12.9 Plt Count 254 MPV 11.1 H Immature Gran % 0.2 Neutrophils % 79.4 Lymphocytes % 10.1 Monocytes % 8.7 Eosinophils % 1.3 Basophils % 0.3 Nucleated RBC % 0.0 Absolute Neutrophils 7.71 H Absolute Lymphocytes 0.98 L Absolute Monocytes 0.84 H Absolute Eosinophils 0.13 Absolute Basophils 0.03 PT 10.0 INR 1.0 APTT 34.0 H Sodium 119 L* 119 L* Potassium 4.5 3.9 Chloride 86 L 86 L Carbon Dioxide 26.0 27.2 Anion Gap 7 6 BUN 9 7 L Creatinine 0.5 L 0.4 L Est GFR (CKD-EPI 2020) 127.87 146.02 Glucose 103 103 Calcium 8.7 8.7 Magnesium 1.6 Total Bilirubin 1.00 AST 20 ALT 17 Alkaline Phosphatase 118 H NT-Pro-B Natriuret Pep 402 H Total Protein 6.6 Albumin 4.2 Triglycerides Total Cholesterol LDL Cholesterol, Calc HDL Cholesterol TSH Urine Color Yellow Urine Clarity Clear Urine pH 6.0 Ur Specific [place] 1.015 Urine Protein Negative Urine Ketones Negative Urine Blood Negative Urine Nitrite Negative Urine Bilirubin Negative Urine Urobilinogen 0.2 Ur Leukocyte Esterase Small H Urine RBC 0-2 Urine WBC 5-10 Ur Epithelial Cells Rare Urine Crystals Negative Urine Bacteria Negative Urine Mucus Trace Urine Other Rare Transitional Ur Culture Indicated? No Ur Random Sodium 53 Urine Glucose Negative 06/10/25 06/10/25 00:28 04:20 WBC 7.12 RBC 3.32 L Hgb 10.2 L Hct 28.9 L MCV 87 MCH 30.7 MCHC 35.3 RDW 12.8 Plt Count 246 MPV 10.8 Immature Gran % Neutrophils % Lymphocytes % Monocytes % Eosinophils % Basophils % Nucleated RBC % Absolute Neutrophils Absolute Lymphocytes Absolute Monocytes Absolute Eosinophils Absolute Basophils PT INR APTT Sodium 120 L* 121 L* Potassium 3.6 3.7 Chloride 87 L 89 L Carbon Dioxide 27.8 28.0 Anion Gap 4.9 4 BUN 7 L 6 L Creatinine 0.4 L 0.4 L Est GFR (CKD-EPI 2020) 150.24 146.02 Glucose 87 83 Calcium 8.4 8.3 Magnesium 1.6 Total Bilirubin AST ALT Alkaline Phosphatase NT-Pro-B Natriuret Pep Total Protein Albumin Triglycerides 45 Total Cholesterol 157 LDL Cholesterol, Calc 68.6 HDL Cholesterol 79 TSH 4.04 Urine Color Urine Clarity Urine pH Ur Specific [place] Urine Protein Urine Ketones Urine Blood Urine Nitrite Urine Bilirubin Urine Urobilinogen Ur Leukocyte Esterase Urine RBC Urine WBC Ur Epithelial Cells Urine Crystals Urine Bacteria Urine Mucus Urine Other Ur Culture Indicated? Ur Random Sodium Urine Glucose
--- NOTE | 2025-06-10 08:11 | INITIAL_ITS ---
Date of service: 06/10/25 Time of Service: 08:11 Care Management Initial Assmt Initial Assessment Reason for Hospitalization: Hyponatremia Functional Status/Living Situation Patient Presentation: CM met with Zane at the bedside. She was awake and alert and lying in bed during the visit. Her daughter, who lives out of state, was present and reported that she plans to stay in the area longer due to her mother's health decline. Zane was readmitted for hyponatremia and subsequently found to have a right humeral fracture. Ortho is consulted. Zane recently discharged to [facility] and reports that her rehab is going well and is expressing desire to return once she is medically cleared for discharge. Daughter agrees with this plan. CM will follow. Town of Residence: [place] Resides with: Child (In law apartment attached to her sons home) Significant Other/Family: [facility] Employment Status: Retired (Nurse) Instrumental Activities of Daily Living (ADLs): Independent (at Baseline) Medications Medication Management: No Issues/Barriers identified Physical Functioning/Mobility Assistive Device: FWW Advance Directives Advance Directives: Do you have an Advance Directive: Y , 13:11 AD On File at [facility]: Y 06/06/25, 13:11 Date Asked 11/08/22 06/06/25, 13:11 AD Date Reviewed 06/03/25 06/06/25, 13:11 COLST On File at [facility] Yes 06/06/25, 13:11 COLST Date Scanned 11/08/22 06/06/25, 13:11 Code Status Resuscitation Status DNR/DNI Insurance Coverage/Financial Issues Insurance: Medicare Part A Only - [id number] /[facility] - [id number] Care Team Visit Care Team Role Provider Type Hang Elam NP Primary Care Provider NURSE PRACTITIONER Stefan Foss MD Other Providers [facility] STAFF PHYSICIAN InPatient Mor Weiss Other Providers OTHER Alexandre Herbert MD Emergency Provider [facility] STAFF PHYSICIAN Salvador Guevara MD Admit Provider [facility] STAFF PHYSICIAN Attending Provider Discharge Potential Discharge Needs: PCP F/U Appt Anticipated Barriers to Discharge: None Identified Patient/Family Education Needs: Review discharge instructions, discuss Ask Me Three Transportation: RCT RCT Transportation: Wheel chair van Plan: Anticipate, Zane will discharge back to [facility] for STR once medically ready. She is be transported via RCT W/C van. She will follow up with community providers and continue per her discharge plan of care. CM will follow. 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 Stage I. Arthritis (Acute) Essential hypertension (Acute 09/03/13) Hyperlipidemia (Acute) Hyperparathyroidism, unspecified (Acute 07/13/12) Has seen endo at [facility]- bx, benign (2014 @) 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 Edwards,[facility] [place] Hypothyroidism (Acute 03/08/13) Osteopenia (Acute) Osteoarthritis, hip, bilateral (Acute) glucosamine Vision, loss, sudden (Acute) left eye 10/27/22 CRAO (central retinal artery occlusion) (Acute) Medical History (Updated 06/10/25 @ 07:40 by BINACA Thomas) Advance care planning Acute CVA (cerebrovascular accident) End of life care Advanced directives. Patient completed her advance directives and herCOLST forms. 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 History of tobacco use Fracture of thoracic spine History of hypercalcemia a. With elevate TTH secondary to a benign adenoma now diminished in size. Smoking history a. Quit approximately 50 years ago after 10 pack years. Unstable angina a. Recurrent chest pressure with left arm weakness x 4 - 6 weeks. b. Multiple cardiac risk factors. Surgical History History of cardiac cath (12/17/13) Normal coronaries Thyroid (~2005) BX; RIGHT Skin Cancer Removal 09/07/16 Para-thyroid adenoma surgery (~2014) Cardiac cath (~2013) Family History Mother , age 81 Essential hypertension Hypothyroid Hypertension Heart disease Father , age 71 Diabetes Essential hypertension Heart disease Myocardial infarction Sister Essential hypertension Heart disease Breast cancer Brother , age 83 Essential hypertension Depression Stroke Heart disease Maternal Grandfather , age 39 Pneumonia Heart disease Paternal Grandfather , age 72 Heart disease Alcohol abuse Depression Maternal Grandmother , age 36 Heart disease Pneumonia Paternal Grandmother , age 70 Heart disease Depression Son Essential hypertension Depression Alcohol abuse Son Alcohol abuse Essential hypertension Son , AGE 55 Substance abuse Diabetes Essential hypertension Heart disease Hyperlipidemia Depression Son Essential hypertension Daughter Hypertension Sister No problems noted. Social History (Updated 11/12/24 @ 12:31 by Jocelyn Martell) Smoking/Tobacco Use Status: Former Tobacco Use tobacco type: cigarettes Quit Date: 07/28/1967 Tobacco: How many years used: 10 Quit status: quit date established Second Hand Exposure: Yes Smoking risk assessment performed?: Yes Alcohol Intake: current Alcohol Intake frequency: holidays/special occasions only Previous attempts at quittin Drug use: Never Substance use type: does not use Counseling given: No Adopted: No Caregiver/Support person: No Foster care: No Household members: none Housing: house Number of Children: 5 number of grandchildren: 7 Communication Needs: None Education Level: college Do you need help understanding health information?: Never current occupation: Retired RN Pets and animals: No Sexually active: No Do you think of yourself as: straight/heterosexual Current gender identity: female What is your relationship status?: How often do you talk on the phone with friends or family?: three or more times per week How often do you get together with friends or relatives?: twice per week How often do you attend taoism or jain services?: 1-3 times per year Do you belong to any clubs or organized social groups?: no Panel score (0-1 are the most socially isolated patients): 1 What type of physical activity do you participate in: walking Duration: 15-30 minutes/day Frequency: 5-6 times per week Gayle/Faith: Baptism Special gayle needs: No Agree to transfusion: Yes Seatbelt use: always Helmet use: No Drive intox or ride w/intox service car driver: No Working smoke detector in home: Yes Carbon monox detector in home: Yes Firearms in home: No Do you feel safe at home: Yes Victim of physical abuse: No Victim of emotional abuse: No Victim of sexual abuse: No Would you like helpful sources: No Readmission Within the Past 30 Days Yes or No: Yes Date of First Admission Date of 1st Admission: 06/03/25 Date of this Admission Date of Admission: 06/09/25 This admission was: Through ED Assessment for Readmission Summary of readmission circumstances, based upon interviews: Zane Nash is an 89 year old woman returning to the ED on June 09 with right arm swelling. She had been hospitalized Jun 03- for heart failure exacerbation and chronic hyponatremia exacerbation, with chronic right arm edema. At [facility], staff had difficulty drawing labs for hyponatremia monitoring and she was sent to ED for assistance with lab draw.
[2025-06-10] MEDS: amLODIPine 5 MG TAB 10 MG PO (08:28)
[2025-06-10] MEDS: Spironolactone 25 MG TAB PO (08:28)
[2025-06-10] MEDS: Atorvastatin 20 MG TAB 40 MG PO (08:28)
[2025-06-10] MEDS: Clopidogrel 75 MG TAB PO (08:29)
[2025-06-10] MEDS: Metoprolol CR 50 MG TABCR PO (08:29)
[2025-06-10] MEDS: Furosemide 20 MG TAB 40 MG PO (08:29)
[2025-06-10] MEDS: Losartan 50 MG TAB 100 MG PO (08:30)
[2025-06-10] MEDS: Normal Saline Flush 10 ML SYR IVP ×2 (08:43→20:55)
[2025-06-10 09:27] LABS: Anion Gap 6.9 mmol/L (3-11); BUN 6 mg/dL (9-23); CO2 27.1 mmol/L (20.0-31.0); Calcium 8.6 mg/dL (8.3-10.6); Chloride 90 mmol/L (98-107); Glucose 84 mg/dL (74-106); Potassium 3.9 mmol/L (3.5-5.1); Sodium 124 mmol/L (136-145)
[2025-06-10] MEDS: SODIUM CHLORIDE 0.45% 1,000 ML 125 ML IV ×3 (10:05→16:04)
--- NOTE | 2025-06-10 11:48 | IN_ITS ---
PT Notes Visit Reasons: Hyponatremia Physical Therapy Inpatient Initial Evaluation Date: 06/10/2025 Referring Doctor: Dr. Guevara PT Orders: PT CONSULT: Safety consult for D/C Precautions: Fall. Standard. Activity as tolerated. RUE swelling from non union right humerus fracture,. IV access antecubital. Patient Profile/Admitting Diagnosis: Pt is an 89-year-old female admitted for unable to draw labs, and suspicion of CHF. Pt had ultrasound in RUE for DVT which came back negative, and an X-ray for RUE, which was positive for worsening hematoma and Non union of right midshaft Humeral fx from 04/2024 . PMHX: Hyponatremia (Acute) Heart failure (Acute) Edema (Acute) Dyspnea (Acute) Weight gain (Acute) Fracture of humeral shaft, right, closed (Acute 05/05/24) Obesity (Chronic) a. Stage I.Arthritis (Acute) Essential hypertension (Acute 09/03/13) Hyperlipidemia (Acute) Hyperparathyroidism, unspecified (Acute 07/13/12) Has seen endo [place] [facility] [place] bx, benign (2014 @) 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 Edwards,[facility] [place] Hypothyroidism (Acute 03/08/13) Osteopenia (Acute) Osteoarthritis, hip, bilateral (Acute) glucosamineVision, loss, sudden (Acute) left eye 10/27/22CRAO (central retinal artery occlusion) (Acute) Medical History (Updated 06/03/25 @ 12:29 by Wilbert Butler MD) Acute CVA (cerebrovascular accident) End of life care Advanced directives. Patient completed her advance directives and herCOLST forms. She is a former nurse, has capacity, does not wish for resuscitation, but would like to have fluids if it would create a positive outcome within 48 hours.History of tobacco use Fracture of thoracic spine History of hypercalcemia a. With elevate TTH secondary to a benign adenoma now diminished in size.Smoking history a. Quit approximately 50 years ago after 10 pack years.Unstable angina a. Recurrent chest pressure with left arm weakness x 4 - 6 weeks. b. Multiple cardiac risk factors. Surgical History History of cardiac cath (12/17/13) Normal coronaries Thyroid (~2005) BX; RIGHTSkin Cancer Removal 09/07/16Para-thyroid adenoma surgery (~2014) Cardiac cath (~2013) Social History/Home Situation: Pt resides alone in a mobile home with ramp to enter. Pt independent ambulation and ADL within mobile home. She has assistance from her family for transportation to appointments and grocery shopping. Pt currently at [facility] Equipment Owned/DME: Pt has access to an FWW. Subjective: Pt reported RNs tried accessing IV on LUE, but weren’t able to, and that is why it was on the RUE. Pt reported being able to use FWW, and push through RUE slightly. Pt reported feeling lightheadedness with ambulation, (PT offered to sit down, but pt said no, she was fine to continue). Objective: General Observation: When PT arrived pt was sitting in stationary chair with RUE place on her lap. Pt had IV line in R antecubital. Pt RUE and BLE had excessive swelling with TEDs. Pt had bruising on medial elbow that ran proximal about mid-way of bicep. Mental Status: Alert and oriented as to person, place, time, and purpose. Able to pay attention, focus, and respond appropriately. Pain: No pain reported Vital Signs: Pre ambulation: BP 114/62, 60 bpm, 94% on RA Post ambulation: BP 129/43, HR 60bpm , SPO2 92%on RA ROM: Right Upper Extremity: Shoulder Flexion/abduction active: 90 degrees, passive 110-due to shoulder tightness. Elbow Extension WFL, Elbow flexion N/A because of IV access. Wrist flexion WFL. Functional opening and closing of hand WFL. Left Upper Extremity: Grossly WFL, Shoulder Flexion: 130 degrees Right Lower Extremity: WFL except hip IR to neutral and DF to neutral with knee extension Left Lower Extremity: WFL except hip IR to neutral and DF to neutral with knee extension Strength: Right Upper Extremity: Shoulder flexors 2+/5. Shoulder abductors 2+/5. Elbow flexors 3/5. Elbow extensors 4/5. Turnstile Attendant strong. Left Upper Extremity: Grossly 4-/5 Right Lower Extremity: Grossly 3+/5. Left Lower Extremity: Grossly 3+/5 Bed Mobility/Transfers: Bed mobility not assessed at this time. Sit to stand with FWW with CGA cues for safe/correct technique Stand to sit with FWW with CGA cues for safe/correct technique Gait: Instructed patient with level surface ambulation of 100 feet requiring FWW with CGA. Isamar decreased. Step height decreased. Step length decreased. Balance: Static Sitting: good Dynamic Sitting: good Static Standing: Good Dynamic Standing: Good w/BUE support Special Tests: Mobility Limitations Standardized Measure [facility] AM-PAC 6 clicks Basic Mobility Inpatient Short Form: Raw Score: 11 CMS Score: 72.5% deficit Informed Consent/Education: Patient was instructed in purpose of PT consult and plan of care. Agreeable to proceed with established PT POC to achieve personal goals. Therapeutic Activity 48368: Ambulation: Pt ambulated 100 feet with FWW CGA of 1 with SBA of 1 following with wheelchair, and monitoring IV line. Pt needed needs verbal and tactile cueing f or directions, FWW placement with corners, and proper weight shifting. Assessment: Pt has excessive swelling in RUE and in BLE. Post session PT replaced pt stationary chair with a recliner to allow pt to elevate her legs and right arm on pillow to help reduce swelling in limbs. Pt limited ROM in RUE limits her ability to perform ADL’s. Pt able to ambulate 100 feet with FWW CGA of 1 with SBA of 1 following with wheelchair, and monitoring IV line. Pt reported feeling a little lightheadedness and tired during ambulation. PT offered pt to sit and rest, and pt declined. PT changed plans of performing medium loop, to smaller loop. Pt vitals where WNL post ambulation. However, pt was fatigued. Pt daughter suspected her mother hasn’t been out of bed in a couple of days. Pt would benefit from skilled physical therapy to help address pt swelling, ROM, strength, and activity tolerance. Next session PT will focus on ROM of RUE to help with reducing swelling, and pt ambulation to increase pt activity tolerance and dynamic balance, thus progressing pt to ambulate without a AD. Patient presents with clinical signs and symptoms consistent with current/admitting diagnoses that have resulted to mobility limitations, gait instability, generalized weakness, and overall ADL decline as demonstrated by the following impairment level findings: 1. Decreased strength to shoulder major muscle groups 2. Impaired standing balance 3. Impaired activity tolerance 4. Limitation of joint range of motion in shoulder 5. Shortness of breath 6. Swelling 7. Pain/stiffness right shoulder Impairments are contributing to the following functional limitations: 1. Decline in transfer skills 2. Difficulty with ambulation without assistive device and physical assistance 3. Increased completion time for mobility ADL performance 4. Increased risk for falls 5. Inability reaching overhead Patient is assessed as a Mod complexity based on the following: History: 89-year-old Female with past medical history as indicated above Examination: Demonstrable impairment in strength, balance, and mobility level with underlying impairments and functional limitations as exhibited above as well as deficit score of 72.5% utilizing the [facility] Mobility Inpatient Short Form Presentation: evolving Decision Making: Mod complexity Goals: Goals X1 week 1. Supine-Sit independent 2. Sit-Supine independent 3. Sit-Stand independent 4. Stand-Sit independent with FWW supervision 5. Bed-Chair independent with FWW supervision 6. Chair-Bed independent with FWW supervision 7. Independent gait on level surface with use of FWW for at least 250 feet without report of pain nor dyspnea 8. Independent stair negotiation while holding onto 2 rails for at least 3 steps without report of pain nor dyspnea 9. Independent with home exercise program 10. Good static and dynamic standing balance/tolerance Plan of Care/Treatment Plan: 1-2x/day, 7 days/week x 1 week. Plan of care has been reviewed with the METALWORKING INSTRUCTOR providing the service under Physical Therapy direction. Initiate Physical Therapy intervention for pain management as needed, strengthening, bed mobility, transfers, gait, stairs, balance training, and use of assistive device. DISCHARGE RECOMMENDATIONS: SNF for continued rehabilitation TREATMENT CODE/TIME: 92801 for 1 unit, 94272 for 2 units/10:11-11:00 Thank you for the opportunity to participate in the care of this patient. Written by: Raoul Blackburn DPTS Supervised by: Marlen Khan, PT [facility] [place], [place]
--- NOTE | 2025-06-10 14:07 | W.PM.DS.N ---
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: Status: Acute Discharge Plan Disposition Condition: Stable Discharge Details Reason For Visit: Hyponatremia Admit Date/Time: 06/09/25 17:33 Admit Provider: Salvador Guevara Attending Provider: Salvador Guevara Primary Care Provider: Hang Rene Home Meds and New Rx's Prescriptions: No Action amlodipine 5 mg tablet See Rx Instructions PO BID Qty: 270 4RF Rx Instructions: 10 mg po qam and 5 mg po qpm orally twice a day; atorvastatin 20 mg tablet 40 mg PO DAILY Qty: 180 4RF clopidogrel 75 mg tablet 75 mg PO DAILY Qty: 90 3RF losartan 50 mg tablet 100 mg PO DAILY Qty: 180 3RF Rx Instructions: [facility] levothyroxine 100 mcg tablet 100 mcg PO DAILY Qty: 90 4RF potassium chloride 20 mEq Tablet Extended Release 40 meq PO BID Qty: 60 0RF metoprolol succinate 50 mg tablet extended release 24 hr 50 mg PO DAILY Qty: 30 0RF furosemide [Lasix] 20 mg tablet 40 mg PO DAILY Qty: 60 0RF DS: Data Vitals/I&O Vitals and I&O: Vital Signs Temperature 36.8 C 06/09/25 22:20 Temperature Source Temporal Artery Scan 06/09/25 20:00 Pulse 58 L 06/10/25 10:47 Pulse 69 06/10/25 13:00 Respiratory Rate 22 06/10/25 13:00 Respiratory Effort Normal, Non-Labored 06/09/25 20:00 Respiratory Depth Normal 06/09/25 20:00 Respiratory Pattern Normal 06/09/25 20:00 Blood Pressure 129/43 L 06/10/25 10:47 Blood Pressure Mean 69 06/10/25 10:47 Pulse Oximetry 91 L 06/10/25 08:01 Oxygen Delivery Method Room Air 06/10/25 07:58 Oxygen Flow Rate 0 06/10/25 07:58 Pain Level 4 06/09/25 14:31 Intake & Output 06/09/25 06/10/25 06/10/25 23:59 11:59 23:59 Intake Total 277 / 517 240 / 517 Output Total 1900 / 1900 1000 / 1000 Balance -1900 / -1900 -723 / -483 240 / -483 Weight 82 kg Intake: IV 277 / 277 Oral 240 / 240 Output: Urine 1900 / 1900 1000 / 1000 Other: Urine Color Yellow Urine Appearance Clear Urine Odor Normal Comment external cath changed at 1015 Stool Size Moderate Stool Characteristics Soft Formed Brown Data Completed and Pending Pending Labs at Discharge: 06/09/25 06/09/25 06/09/25 15:31 15:52 21:00 WBC 9.71 RBC 3.41 L Hgb 10.5 L Hct 29.4 L MCV 86 MCH 30.8 MCHC 35.7 RDW 12.9 Plt Count 254 MPV 11.1 H Immature Gran % 0.2 Neutrophils % 79.4 Lymphocytes % 10.1 Monocytes % 8.7 Eosinophils % 1.3 Basophils % 0.3 Nucleated RBC % 0.0 Absolute Neutrophils 7.71 H Absolute Lymphocytes 0.98 L Absolute Monocytes 0.84 H Absolute Eosinophils 0.13 Absolute Basophils 0.03 PT 10.0 INR 1.0 APTT 34.0 H Sodium 119 L* 119 L* Potassium 4.5 3.9 Chloride 86 L 86 L Carbon Dioxide 26.0 27.2 Anion Gap 7 6 BUN 9 7 L Creatinine 0.5 L 0.4 L Est GFR (CKD-EPI 2020) 127.87 146.02 Glucose 103 103 Serum Osmolality Calcium 8.7 8.7 Magnesium 1.6 Total Bilirubin 1.00 AST 20 ALT 17 Alkaline Phosphatase 118 H NT-Pro-B Natriuret Pep 402 H Total Protein 6.6 Albumin 4.2 Triglycerides Total Cholesterol LDL Cholesterol, Calc HDL Cholesterol TSH Urine Color Yellow Urine Clarity Clear Urine pH 6.0 Ur Specific [place] 1.015 Urine Protein Negative Urine Ketones Negative Urine Blood Negative Urine Nitrite Negative Urine Bilirubin Negative Urine Urobilinogen 0.2 Ur Leukocyte Esterase Small H Urine RBC 0-2 Urine WBC 5-10 Ur Epithelial Cells Rare Urine Crystals Negative Urine Bacteria Negative Urine Mucus Trace Urine Other Rare Transitional Ur Culture Indicated? No Urine Osmolality Pending Ur Random Sodium 53 Urine Glucose Negative 06/10/25 06/10/25 06/10/25 00:28 04:20 08:30 WBC 7.12 RBC 3.32 L Hgb 10.2 L Hct 28.9 L MCV 87 MCH 30.7 MCHC 35.3 RDW 12.8 Plt Count 246 MPV 10.8 Immature Gran % Neutrophils % Lymphocytes % Monocytes % Eosinophils % Basophils % Nucleated RBC % Absolute Neutrophils Absolute Lymphocytes Absolute Monocytes Absolute Eosinophils Absolute Basophils PT INR APTT Sodium 120 L* 121 L* 124 L Potassium 3.6 3.7 3.9 Chloride 87 L 89 L 90 L Carbon Dioxide 27.8 28.0 27.1 Anion Gap 4.9 4 6.9 BUN 7 L 6 L 6 L Creatinine 0.4 L 0.4 L 0.4 L Est GFR (CKD-EPI 2020) 150.24 146.02 169.67 Glucose 87 83 84 Serum Osmolality Pending Calcium 8.4 8.3 8.6 Magnesium 1.6 Total Bilirubin AST ALT Alkaline Phosphatase NT-Pro-B Natriuret Pep Total Protein Albumin Triglycerides 45 Total Cholesterol 157 LDL Cholesterol, Calc 68.6 HDL Cholesterol 79 TSH 4.04 Urine Color Urine Clarity Urine pH Ur Specific [place] Urine Protein Urine Ketones Urine Blood Urine Nitrite Urine Bilirubin Urine Urobilinogen Ur Leukocyte Esterase Urine RBC Urine WBC Ur Epithelial Cells Urine Crystals Urine Bacteria Urine Mucus Urine Other Ur Culture Indicated? 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 Stage I. Arthritis (Acute) Essential hypertension (Acute 09/03/13) Hyperlipidemia (Acute) Hyperparathyroidism, unspecified (Acute 07/13/12) Has seen endo at [facility] [place]- bx, benign (2014 @) 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 Edwards,[facility] [place] Hypothyroidism (Acute 03/08/13) Osteopenia (Acute) Osteoarthritis, hip, bilateral (Acute) glucosamine Vision, loss, sudden (Acute) left eye 10/27/22 CRAO (central retinal artery occlusion) (Acute) Medical History (Updated 06/10/25 @ 07:40 by BIANCA Thomas) Advance care planning Acute CVA (cerebrovascular accident) End of life care Advanced directives. Patient completed her advance directives and herCOLST forms. 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 History of tobacco use Fracture of thoracic spine History of hypercalcemia a. With elevate TTH secondary to a benign adenoma now diminished in size. Smoking history a. Quit approximately 50 years ago after 10 pack years. Unstable angina a. Recurrent chest pressure with left arm weakness x 4 - 6 weeks. b. Multiple cardiac risk factors. Surgical History History of cardiac cath (12/17/13) Normal coronaries Thyroid (~2005) BX; RIGHT Skin Cancer Removal 09/07/16 Para-thyroid adenoma surgery (~2014) Cardiac cath (~2013) Family History Mother , age 81 Essential hypertension Hypothyroid Hypertension Heart disease Father , age 71 Diabetes Essential hypertension Heart disease Myocardial infarction Sister Essential hypertension Heart disease Breast cancer Brother , age 83 Essential hypertension Depression Stroke Heart disease Maternal Grandfather , age 39 Pneumonia Heart disease Paternal Grandfather , age 72 Heart disease Alcohol abuse Depression Maternal Grandmother , age 36 Heart disease Pneumonia Paternal Grandmother , age 70 Heart disease Depression Son Essential hypertension Depression Alcohol abuse Son Alcohol abuse Essential hypertension Son , AGE 55 Substance abuse Diabetes Essential hypertension Heart disease Hyperlipidemia Depression Son Essential hypertension Daughter Hypertension Sister No problems noted. Social History (Updated 11/12/24 @ 12:31 by Jocelyn Martell) Smoking/Tobacco Use Status: Former Tobacco Use tobacco type: cigarettes Quit Date: 07/28/1967 Tobacco: How many years used: 10 Quit status: quit date established Second Hand Exposure: Yes Smoking risk assessment performed?: Yes Alcohol Intake: current Alcohol Intake frequency: holidays/special occasions only Previous attempts at quittin Drug use: Never Substance use type: does not use Counseling given: No Adopted: No Caregiver/Support person: No Foster care: No Household members: none Housing: house Number of Children: 5 number of grandchildren: 7 Communication Needs: None Education Level: college Do you need help understanding health information?: Never current occupation: Retired RN Pets and animals: No Sexually active: No Do you think of yourself as: straight/heterosexual Current gender identity: female What is your relationship status?: How often do you talk on the phone with friends or family?: three or more times per week How often do you get together with friends or relatives?: twice per week How often do you attend christianity or muslim services?: 1-3 times per year Do you belong to any clubs or organized social groups?: no Panel score (0-1 are the most socially isolated patients): 1 What type of physical activity do you participate in: walking Duration: 15-30 minutes/day Frequency: 5-6 times per week Gayle/Lutheran: Methodist Special gayle needs: No Agree to transfusion: Yes Seatbelt use: always Helmet use: No Drive intox or ride w/intox delivery driver/customer service: No Working smoke detector in home: Yes Carbon monox detector in home: Yes Firearms in home: No Do you feel safe at home: Yes Victim of physical abuse: No Victim of emotional abuse: No Victim of sexual abuse: No Would you like helpful sources: No
--- NOTE | 2025-06-10 15:38 | PGE_ITS ---
Date of Service Date of service: 06/10/25 Time of Service: 08:00 Assessment and Plan Assessment and plan (1) Acute hyponatremia: Status: Acute Assessment and plan: Chronic hyponatremia in the low 130's. Sodium 120-122 during Jun 03 hospitalization thought to be transient SIADH due to steroid use during recent pneumonia Hyponatremia workup deferred at that time. On arrival Jun 09, Na 119, asymptomatic. Urine studies ordered: urine sodium is done in house, urine osmolality is a send out Serum osmolality also ordered, also a send out Lipid panel ordered Furosemide 40 IV given in ED Jun 10: overnight hypertonic saline given, upgraded to ICU. Improvement in Na to 124. Stopped hypertonic saline. Afternoon BMP with Na 123. Resume home furosemide 40 daily for now and continue spironolactone. (2) Closed right humeral fracture: Status: Acute Assessment and plan: Patient fell May 05 2024 and humerus fracture was noted at that time. Orthopedic consult and care were non-operative with fracture alignment and some healing noted in clinic Displacement seen on CTA for PE May 19, noted to be not worse on June 04 CTA for PE Per patient she has had chronic edema in that arm and does not use it very much. Imaging repeated Jun 09 with hematoma seen on US. Orthopedic surgery consulted for evaluation. No intervention as injury is chronic. Continue DAPT. Start VTE chemoprophylaxis, enoxaparin 40 q24h. Monitor right arm swelling. (3) (HFpEF) heart failure with preserved ejection fraction: Status: Acute Assessment and plan: New diagnosis during Jun 03 hospitalization Echo significant for LVEF 60%, severely dilated LA, sclerosis of aortic valve, mild/moderate mitral and tricuspid regurgitation [facility] cardiology consulted, recommending continuation of furosemide and initiation of spironolactone, metoprolol changed from tartrate to succinate Moderate edema on Jun 09 arrival compared with Jun 07 Continue PO furosemide and PO spironolactone (4) Essential hypertension: Status: Acute Assessment and plan: Continue home regimen, losartan, metoprolol, amlodipine (5) CAD (coronary artery disease): Status: Chronic Assessment and plan: Continue home clopidogrel, aspirin Subjective Subjective Interval history since last seen: Mrs. Nash is comfortable in a chair with her daughter at bedside. She denies pain. She reports that she feels a bit weak but better today. Exam Narrative Exam Narrative: General: This is a pleasant, elderly woman in no distress HEENT: Normocephalic, atraumatic CV: RRR. 1+ pitting edema BLE Resp: CTAB Abd: soft, NTND MSK: voluntary motion x4. RUE edematous. Neuro: awake, alert, no focal deficits Objective Last Vital Signs Temp 36.8 C 06/09/25 22:20 Pulse 58 L 06/10/25 10:47 Resp 22 06/10/25 13:00 BP 129/43 L 06/10/25 10:47 Pulse Ox 91 L 06/10/25 08:01 Laboratory Results - last 24 hr 06/09/25 06/09/25 06/09/25 15:31 15:52 21:00 WBC 9.71 RBC 3.41 L Hgb 10.5 L Hct 29.4 L MCV 86 MCH 30.8 MCHC 35.7 RDW 12.9 Plt Count 254 MPV 11.1 H Immature Gran % 0.2 Neutrophils % 79.4 Lymphocytes % 10.1 Monocytes % 8.7 Eosinophils % 1.3 Basophils % 0.3 Nucleated RBC % 0.0 Absolute Neutrophils 7.71 H Absolute Lymphocytes 0.98 L Absolute Monocytes 0.84 H Absolute Eosinophils 0.13 Absolute Basophils 0.03 PT 10.0 INR 1.0 APTT 34.0 H Sodium 119 L* 119 L* Potassium 4.5 3.9 Chloride 86 L 86 L Carbon Dioxide 26.0 27.2 Anion Gap 7 6 BUN 9 7 L Creatinine 0.5 L 0.4 L Est GFR (CKD-EPI 2020) 127.87 146.02 Glucose 103 103 Calcium 8.7 8.7 Magnesium 1.6 Total Bilirubin 1.00 AST 20 ALT 17 Alkaline Phosphatase 118 H NT-Pro-B Natriuret Pep 402 H Total Protein 6.6 Albumin 4.2 Triglycerides Total Cholesterol LDL Cholesterol, Calc HDL Cholesterol TSH Urine Color Yellow Urine Clarity Clear Urine pH 6.0 Ur Specific [place] 1.015 Urine Protein Negative Urine Ketones Negative Urine Blood Negative Urine Nitrite Negative Urine Bilirubin Negative Urine Urobilinogen 0.2 Ur Leukocyte Esterase Small H Urine RBC 0-2 Urine WBC 5-10 Ur Epithelial Cells Rare Urine Crystals Negative Urine Bacteria Negative Urine Mucus Trace Urine Other Rare Transitional Ur Culture Indicated? No Ur Random Sodium 53 Urine Glucose Negative 06/10/25 06/10/25 06/10/25 00:28 04:20 08:30 WBC 7.12 RBC 3.32 L Hgb 10.2 L Hct 28.9 L MCV 87 MCH 30.7 MCHC 35.3 RDW 12.8 Plt Count 246 MPV 10.8 Immature Gran % Neutrophils % Lymphocytes % Monocytes % Eosinophils % Basophils % Nucleated RBC % Absolute Neutrophils Absolute Lymphocytes Absolute Monocytes Absolute Eosinophils Absolute Basophils PT INR APTT Sodium 120 L* 121 L* 124 L Potassium 3.6 3.7 3.9 Chloride 87 L 89 L 90 L Carbon Dioxide 27.8 28.0 27.1 Anion Gap 4.9 4 6.9 BUN 7 L 6 L 6 L Creatinine 0.4 L 0.4 L 0.4 L Est GFR (CKD-EPI 2020) 150.24 146.02 169.67 Glucose 87 83 84 Calcium 8.4 8.3 8.6 Magnesium 1.6 Total Bilirubin AST ALT Alkaline Phosphatase NT-Pro-B Natriuret Pep Total Protein Albumin Triglycerides 45 Total Cholesterol 157 LDL Cholesterol, Calc 68.6 HDL Cholesterol 79 TSH 4.04 Urine Color Urine Clarity Urine pH Ur Specific [place] Urine Protein Urine Ketones Urine Blood Urine Nitrite Urine Bilirubin Urine Urobilinogen Ur Leukocyte Esterase Urine RBC Urine WBC Ur Epithelial Cells Urine Crystals Urine Bacteria Urine Mucus Urine Other Ur Culture Indicated? Ur Random Sodium Urine Glucose Time Spent with Patient Time Spent with Patient: 25-34 minutes Time was spent: preparing to see the patient(eg.review tests), obtaining and/or reviewing separately otained hiistory, ordering medications,tests, procedures, referring, communicating with other health urgent care physician, indepentently interpreting results, counseling the patient and care coordination
[2025-06-10 16:47] LABS: Anion Gap 9 mmol/L (3-11); BUN 8 mg/dL (9-23); CO2 26.8 mmol/L (20.0-31.0); Calcium 8.8 mg/dL (8.3-10.6); Chloride 87 mmol/L (98-107); Glucose 94 mg/dL (74-106); Potassium 4.2 mmol/L (3.5-5.1); Sodium 123 mmol/L (136-145)
[2025-06-10 17:18] LABS: Osmolality, Urine 315 mOsm/kg (150-1150)
--- NOTE | 2025-06-10 18:08 | W.PC.ACHO ---
Registration Status: ADM IN Primary Language: Preferred Language: Occitan ED Information & Data Chief Complaint Recheck 06/09/25 14:[address] [facility] unable 06/09/25 14:31 to get blood and she needs follow up blood work for low sodium. pt able to stand/ walk independently at the bedside. alert to slef, location and president but states it is 2011. Medical / Surgical History (Updated 06/10/25 @ 07:40 by BIANCA Thomas) Advance care planning Acute CVA (cerebrovascular accident) End of life care History of tobacco use Fracture of thoracic spine History of hypercalcemia Smoking history Unstable angina (Updated 05/25/20 @ 13:38 by Meron Harrison NP) History of cardiac cath (12/17/13) Thyroid (~2005) Skin Cancer Removal Para-thyroid adenoma surgery (~2014) Cardiac cath (~2013) Most Recent Vital Signs Temperature 35.9 C L 06/10/25 16:00 Temperature Source Temporal Artery Scan 06/09/25 20:00 Pulse 63 06/10/25 16:00 Pulse 65 06/10/25 15:40 Respiratory Rate 20 06/10/25 16:00 Respiratory Effort Normal, Non-Labored 06/09/25 20:00 Respiratory Depth Normal 06/09/25 20:00 Respiratory Pattern Normal 06/09/25 20:00 Blood Pressure 139/59 L 06/10/25 16:00 Blood Pressure Mean 85 06/10/25 16:00 Pulse Oximetry 95 06/10/25 16:00 Oxygen Delivery Method Room Air 06/10/25 16:00 Oxygen Flow Rate 0 06/10/25 16:00 Pain Level 0 06/10/25 15:58 Allergies lisinopril Adverse Reaction (Severe, Unverified 06/09/25 14:37) Suicidal Ideation Active Medications Generic Name Dose Route Start Last Admin Trade Name Freq PRN Reason Stop Dose Admin Amlodipine Besylate 10 mg 06/10/25 08:30 06/10/25 08:28 Amlodipine 5 Mg Tab PO 10 mg DAILY MIGUE Administration Amlodipine Besylate 5 mg 06/09/25 20:00 06/09/25 20:42 Amlodipine 5 Mg Tab PO 5 mg QPM MIGUE Administration Atorvastatin Calcium 40 mg 06/10/25 08:30 06/10/25 08:28 Atorvastatin 20 Mg Tab PO 40 mg DAILY MIGUE Administration Clopidogrel Bisulfate 75 mg 06/10/25 08:30 06/10/25 08:29 Clopidogrel 75 Mg Tab PO 75 mg DAILY MIGUE Administration Furosemide 40 mg 06/10/25 08:30 06/10/25 08:29 Furosemide 20 Mg Tab PO 40 mg DAILY MIGUE Administration Sodium Chloride 1,000 mls @ 125 mls/hr 06/10/25 09:45 06/10/25 16:04 Half Normal Saline IV 125 mls/hr INFUSION MIGUE Administration Levothyroxine Sodium 100 mcg 06/10/25 06:00 06/10/25 06:40 Levothyroxine 100 Mcg Tab PO 100 mcg DAILY@0600 MIGUE Administration Losartan Potassium 100 mg 06/10/25 08:30 06/10/25 08:30 Losartan 50 Mg Tab PO 100 mg DAILY MIGUE Administration Metoprolol Succinate 50 mg 06/10/25 08:30 06/10/25 08:29 Metoprolol Cr 50 Mg Tabcr PO 50 mg DAILY MIGUE Administration Sodium Chloride 0 ml 06/09/25 20:00 06/10/25 08:43 Normal Saline Flush 10 Ml Syr IVP 10 ml BID MIGUE Administration Spironolactone 25 mg 06/10/25 08:30 06/10/25 08:28 Spironolactone 25 Mg Tab PO 25 mg DAILY MIGUE Administration IV IV Catheter Type [Right Peripheral IV Antecubital] IV Catheter Gauge [Right 18 Antecubital] Diagnostics 06/10/25 06/10/25 06/10/25 Range/Units 16:06 08:30 04:20 WBC 7.12 (4.4-10.8) 10^3/uL RBC 3.32 L (3.93-5.22) 10^6/uL Hgb 10.2 L (11.2-15.7) g/dL Hct 28.9 L (36.0-46.0) % MCV 87 (80-95) fL MCH 30.7 (27.0-33.0) pg MCHC 35.3 (32.0-36.0) % RDW 12.8 (11.7-14.6) % Plt Count 246 (130-400) 10^3/uL MPV 10.8 (8.0-11.0) fL Sodium 123 L 124 L 121 L* (136-145) mmol/L Potassium 4.2 3.9 3.7 (3.5-5.1) mmol/L Chloride 87 L 90 L 89 L (98-107) mmol/L Carbon Dioxide 26.8 27.1 28.0 (20.0-31.0) mmol/L Anion Gap 9 6.9 4 (3-11) mmol/L BUN 8 L 6 L 6 L (9-23) mg/dL Creatinine 0.4 L 0.4 L 0.4 L (0.55-1.02) mg/dL Est GFR (CKD-EPI 2020) 134.60 169.67 146.02 (mL/min/1.73m2) Glucose 94 84 83 (74-106) mg/dL Serum Osmolality Pending Calcium 8.8 8.6 8.3 (8.3-10.6) mg/dL Magnesium 1.6 (1.6-2.6) mg/dL Triglycerides 45 (<150) mg/dL Total Cholesterol 157 (<200) mg/dL LDL Cholesterol, Calc 68.6 (<100) mg/dL HDL Cholesterol 79 (>40) mg/dL TSH 4.04 (0.55-4.78) uIU/mL Ur Random Sodium mmol/L 06/10/25 06/09/25 06/09/25 Range/Units 00:28 21:00 15:52 WBC (4.4-10.8) 10^3/uL RBC (3.93-5.22) 10^6/uL Hgb (11.2-15.7) g/dL Hct (36.0-46.0) % MCV (80-95) fL MCH (27.0-33.0) pg MCHC (32.0-36.0) % RDW (11.7-14.6) % Plt Count (130-400) 10^3/uL MPV (8.0-11.0) fL Sodium 120 L* 119 L* (136-145) mmol/L Potassium 3.6 3.9 (3.5-5.1) mmol/L Chloride 87 L 86 L (98-107) mmol/L Carbon Dioxide 27.8 27.2 (20.0-31.0) mmol/L Anion Gap 4.9 6 (3-11) mmol/L BUN 7 L 7 L (9-23) mg/dL Creatinine 0.4 L 0.4 L (0.55-1.02) mg/dL Est GFR (CKD-EPI 2020) 150.24 146.02 (mL/min/1.73m2) Glucose 87 103 (74-106) mg/dL Serum Osmolality Calcium 8.4 8.7 (8.3-10.6) mg/dL Magnesium (1.6-2.6) mg/dL Triglycerides (<150) mg/dL Total Cholesterol (<200) mg/dL LDL Cholesterol, Calc (<100) mg/dL HDL Cholesterol (>40) mg/dL TSH (0.55-4.78) uIU/mL Ur Random Sodium 53 mmol/L Intake and Output - 24 Hour Total 06/09/25 14:24 thru 06/10/25 16:04 Intake Total 1250.334 Output Total 2900 Balance -1649.666 Weight 82 kg Intake: IV 1010.334 Oral 240 Output: Urine 2900 Other: Urine Color Yellow Urine Appearance Clear Urine Odor Normal Comment external cath changed at 1015 Stool Size Moderate Stool Characteristics Soft Formed [place] Risk Assessment History of Falls Previous History 06/09/25 20:00 Contributing Factors Impairments 06/09/25 20:00 Ambulatory Aids Uses ambulatory device 06/09/25 20:00 Tubes/Lines With any additional score 06/09/25 20:00 Gait Evaluation No gait disturbance 06/09/25 20:00 Cognition No cognitive impairment 06/09/25 20:00 Fall Total Score 53 06/09/25 20:00 Level of Risk High Risk 06/09/25 20:00 Problems (Updated 06/10/25 @ 07:40 by BIANCA Thomas) 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 Additional Patient Information/Comments: pt arrived to the unit at 1600. Report Received From: Rachel Evans @[id number]
[2025-06-10] MEDS: amLODIPine 5 MG TAB PO (20:54)
[2025-06-11 03:24] VITALS: BP 130/38; PULSE 71; RESP 18; TEMP 36.6; O2SAT 95
[2025-06-11] MEDS: Levothyroxine 100 MCG TAB PO (05:51)
[2025-06-11 06:52] LABS: HCT 28.5 % (36.0-46.0); HGB 10.2 g/dL (11.2-15.7); MCH 30.8 pg (27.0-33.0); MCHC 35.8 % (32.0-36.0); MCV 86 fL (80-95); MPV 11.1 fL (8.0-11.0); Platelet Count 266 10^3/uL (130-400); RBC 3.31 10^6/uL (3.93-5.22); RDW 13.1 % (11.7-14.6); RDW-SD 41.1 fL; WBC 8.30 10^3/uL (4.4-10.8)
[2025-06-11 07:40] VITALS: BP 127/47; PULSE 70; RESP 16; TEMP 36.8; O2SAT 97
[2025-06-11] MEDS: Clopidogrel 75 MG TAB PO (08:56)
[2025-06-11] MEDS: Metoprolol CR 50 MG TABCR PO (08:56)
[2025-06-11] MEDS: Losartan 50 MG TAB 100 MG PO (08:56)
[2025-06-11] MEDS: Atorvastatin 20 MG TAB 40 MG PO (08:57)
[2025-06-11] MEDS: Furosemide 20 MG TAB 40 MG PO (08:57)
[2025-06-11] MEDS: amLODIPine 5 MG TAB 10 MG PO (08:57)
[2025-06-11] MEDS: Spironolactone 25 MG TAB PO (08:58)
[2025-06-11] MEDS: Normal Saline Flush 10 ML SYR IVP ×2 (09:01→20:44)
[2025-06-11] MEDS: Enoxaparin 40 MG/0.4 ML SYR SC (09:01)
--- NOTE | 2025-06-11 10:56 | PT.INTREAT ---
Date of service: 06/11/25 Time of Service: 10:35 PT Notes Visit Reasons: Hyponatremia Inpatient Physical Therapy Treatment Note [facility] Date: June 11, 2025 PRECAUTIONS:Standard SUBJECTIVE: Zane notes overall continues to be feeling better. Agreeable to PT this morning. Ready to get up and get moving for has been sitting a lot. OBJECTIVE: PAIN: Declines any pain. VITALS: Pre-Treatment: O2 sat 95% on room air, 68 bpm Post-Treatment: O2 sat 94% on room air, 72 bpm post exercise Therapeutic Activities (52547r4): Direct one-on-one instruction in dynamic activities to improve functional performance. BED MOBILITY/TRANSFERS Sit-stand: CGA with FWW Stand-sit: CGA with cueing for hand placement Bed-Chair: CGA with FWW Chair-bed: CGA with FWW Provided skilled cues and instruction on performance and technique throughout. GAIT Assistive Device: FWW Weight bearing: FWB Assist: CGA Distance: 100 ft x2 Deviation: Decreased bennett Therapeutic Exercises (71278b5): Direct one-on-one instruction in therapeutic exercises to develop strength, endurance, range of motion and flexibility. Exercises Seated September 10x R/L LAQ 10x R/L Ankle pumps 10x R/L Hip adduction iso 10x5 seconds Elbow flexion 10 x R/L Forearm supination/pronation 10x R/L Grasp iso 10 x5 s Provided skilled instruction in proper exercise performance Provided skilled manual cues to facilitate proper muscle recruitment ASSESSMENT: Tolerated session well. Noted fatigue post walk. Feeling steadier on her feet. Continue to advance within symptom allowance. Plan of Care/Treatment Plan: 1-2x/day, 7 days/week x 1 week. Plan of care has been reviewed with the CLOTH TESTER QUALITY providing the service under Physical Therapy direction. Initiate Physical Therapy intervention for pain management as needed, strengthening, bed mobility, transfers, gait, stairs, balance training, and use of assistive device. DISCHARGE RECOMMENDATIONS: SNF for continued rehabilitation TREATMENT CODE/TIME: 14522,33710, 25 minutes 10:35-11:00 am
[2025-06-11 11:29] LABS: Anion Gap 7.9 mmol/L (3-11); BUN 6 mg/dL (9-23); CO2 26.1 mmol/L (20.0-31.0); Calcium 8.6 mg/dL (8.3-10.6); Chloride 90 mmol/L (98-107); Glucose 85 mg/dL (74-106); Potassium 3.8 mmol/L (3.5-5.1); Sodium 124 mmol/L (136-145)
[2025-06-11 11:39] VITALS: BP 119/47; PULSE 67; RESP 16; TEMP 35.7; O2SAT 97
[2025-06-11 18:08] VITALS: BP 144/48; PULSE 68; RESP 16; TEMP 36.4; O2SAT 97
--- NOTE | 2025-06-11 18:23 | W.PM.PROGNOT ---
Date of Service Date of service: 06/11/25 Time of Service: 18:23 Assessment and Plan Assessment and plan (1) Acute hyponatremia: Status: Acute Assessment and plan: Acute on chronic hyponatremia in the low 130's. Sodium 120-122 during Jun 03 hospitalization thought to be transient SIADH to recent pneumonia Hyponatremia workup deferred at that time. On arrival Jun 09, Na 119, severe range but asymptomatic. Given furosemide 40mg IV Urine studies ordered: urine sodium <50mmol/L, urine/serum osmolality is a send out no pseudohyponatremia. TSH nl. She does have edema, but echo not c/w fluid overload functionally. Her hyponatremia got worse with diuresis from previous CHF admission until this admission. She did get some hypertonic saline in ICU. I will stop diuretics, initiate fluid restriction Get AM cortisol. (2) Closed right humeral fracture: Status: Acute Assessment and plan: Patient fell May 05 2024 and humerus fracture was noted at that time. Orthopedic consult and care were non-operative with fracture alignment and some healing noted in clinic Displacement seen on CTA for PE May 19, noted to be not worse on June 04 CTA for PE Per patient she has had chronic edema in that arm and does not use it very much. Imaging repeated Jun 09 with hematoma seen on US. Orthopedic surgery consulted for evaluation. No intervention as injury is chronic. (3) (HFpEF) heart failure with preserved ejection fraction: Status: Acute Assessment and plan: New diagnosis during Jun 03 hospitalization Echo significant for LVEF 60%, severely dilated LA, sclerosis of aortic valve, mild/moderate mitral and tricuspid regurgitation [facility] [place] cardiology consulted, recommending continuation of furosemide and initiation of spironolactone, metoprolol changed from tartrate to succinate Worse edema on this admission despite starting diuresis. continue metoprolol and spironolactone, start SGLT2i, may also help hyponatremia (4) Essential hypertension: Status: Acute Assessment and plan: Continue home regimen, losartan, metoprolol, amlodipine (5) CAD (coronary artery disease): Status: Chronic Assessment and plan: Continue home clopidogrel, aspirin, though she may not need both residential. Subjective Subjective Patient reports: no new complaints, tolerating a regular diet and voiding w/o difficulty; denies diarrhea, nausea, vomiting, shortness of breath or fever Interval history since last seen: She feels okay. No headache or confusion. She is eating well. She has less swelling than when she came in. Exam Narrative Exam Narrative: General: This is a pleasant, elderly woman in no distress HEENT: Normocephalic, atraumatic CV: RRR. 1+ pitting edema BLE Resp: CTAB Abd: soft, NTND MSK: voluntary motion x4. RUE edematous. Neuro: awake, alert, no focal deficits Objective Last Vital Signs Temp 36.4 C L 06/11/25 18:08 Pulse 68 06/11/25 18:08 Resp 16 06/11/25 18:08 BP 144/48 H 06/11/25 18:08 Pulse Ox 97 06/11/25 18:08 Laboratory Results - last 24 hr 06/11/25 06:30 WBC 8.30 RBC 3.31 L Hgb 10.2 L Hct 28.5 L MCV 86 MCH 30.8 MCHC 35.8 RDW 13.1 Plt Count 266 MPV 11.1 H Sodium 124 L Potassium 3.8 Chloride 90 L Carbon Dioxide 26.1 Anion Gap 7.9 BUN 6 L Creatinine 0.4 L Est GFR (CKD-EPI 2020) 134.59 Glucose 85 Calcium 8.6 Time Spent with Patient Time Spent with Patient: 35-49 minutes Time was spent: preparing to see the patient(eg.review tests), obtaining and/or reviewing separately otained hiistory, ordering medications,tests, procedures, referring, communicating with other health pediatric care coordinator, indepentently interpreting results, counseling the patient and care coordination
[2025-06-11 20:50] VITALS: BP 128/36; PULSE 72; TEMP 36.9; O2SAT 95
[2025-06-11] MEDS: amLODIPine 5 MG TAB PO (20:56)
[2025-06-11 22:59] VITALS: BP 148/45; PULSE 68; RESP 16; TEMP 36.2; O2SAT 94
[2025-06-12 03:04] VITALS: BP 132/49; PULSE 70; RESP 16; TEMP 36.4; O2SAT 94
[2025-06-12] MEDS: Levothyroxine 100 MCG TAB PO (05:12)
[2025-06-12 06:30] LABS: HCT 26.2 % (36.0-46.0); HGB 9.4 g/dL (11.2-15.7); MCH 31.8 pg (27.0-33.0); MCHC 35.9 % (32.0-36.0); MCV 89 fL (80-95); MPV 11.1 fL (8.0-11.0); Platelet Count 259 10^3/uL (130-400); RBC 2.96 10^6/uL (3.93-5.22); RDW 13.2 % (11.7-14.6); RDW-SD 43.2 fL; WBC 7.45 10^3/uL (4.4-10.8)
[2025-06-12 07:00] LABS: Anion Gap 6.8 mmol/L (3-11); BUN 7 mg/dL (9-23); CO2 28.6 mmol/L (20.0-31.0); Calcium 8.7 mg/dL (8.3-10.6); Chloride 90 mmol/L (98-107); Glucose 86 mg/dL (74-106); Potassium 3.6 mmol/L (3.5-5.1); Sodium 125 mmol/L (136-145)
[2025-06-12 07:08] VITALS: BP 151/49; PULSE 72; RESP 16; TEMP 36.6; O2SAT 96
[2025-06-12] MEDS: Metoprolol CR 50 MG TABCR PO (07:45)
[2025-06-12] MEDS: Clopidogrel 75 MG TAB PO (07:45)
[2025-06-12] MEDS: Spironolactone 25 MG TAB PO (07:45)
[2025-06-12] MEDS: Normal Saline Flush 10 ML SYR IVP (07:45)
[2025-06-12] MEDS: Empaglifozin 10 MG TAB PO (07:46)
[2025-06-12] MEDS: amLODIPine 5 MG TAB 10 MG PO (07:46)
[2025-06-12] MEDS: Atorvastatin 20 MG TAB 40 MG PO (07:46)
[2025-06-12] MEDS: Losartan 50 MG TAB 100 MG PO (07:46)
[2025-06-12] MEDS: Enoxaparin 40 MG/0.4 ML SYR SC (09:30)
--- NOTE | 2025-06-12 10:47 | PT.INTREAT ---
Date of service: 06/12/25 Time of Service: 10:15 PT Notes Visit Reasons: Hyponatremia Inpatient Physical Therapy Treatment Note [facility] Date: June 12, 2025 PRECAUTIONS:Standard, Fall SUBJECTIVE: Zane notes that she just got washed up and is feeling better. Has been out of bed since 7 this morning. OBJECTIVE: PAIN: R humerus VITALS: Monitored via nursing Therapeutic Activities (36310h9): Direct one-on-one instruction in dynamic activities to improve functional performance. BED MOBILITY/TRANSFERS Sit-stand: CGA Stand-sit: Supervision Bed-Chair: CGA with FWW Chair-bed: CGA with FWW Provided skilled cues and instruction on performance and technique throughout. GAIT Assistive Device: FWW Weight bearing: FWB Assist: CGA Distance: 100 ftx2 Deviation: decreased bennett, widened base of support Therapeutic Exercises (34156b9): Direct one-on-one instruction in therapeutic exercises to develop strength, endurance, range of motion and flexibility. Exercises Seated march x10 R/L LAQ x10 R/L Hip abduction x10 R/L Ankle pumps 20x SLR x10 R/L Provided skilled instruction in proper exercise performance Provided skilled manual cues to facilitate proper muscle recruitment and/or form ASSESSMENT: PLAN:1-2x/day, 7 days/week x 1 week. Plan of care has been reviewed with the TUNNEL ELASTIC OPERATOR ZIGZAG providing the service under Physical Therapy direction. Initiate Physical Therapy intervention for pain management as needed, strengthening, bed mobility, transfers, gait, stairs, balance training, and use of assistive device. DISCHARGE RECOMMENDATIONS: SNF for continued rehabilitation TREATMENT CODE/TIME: 64016,63826, 25 minutes 10:15-10:40 am Refused PM session due to fatigue. Ami Hicks,MPT
[2025-06-12 10:52] VITALS: BP 124/41; PULSE 63; RESP 18; TEMP 36; O2SAT 99
--- NOTE | 2025-06-12 13:46 | W.PM.PROGNOT ---
Date of Service Date of service: 06/12/25 Time of Service: 13:46 Assessment and Plan Assessment and plan (1) Acute hyponatremia: Status: Acute Assessment and plan: Acute on chronic hyponatremia in the low 130's. Sodium 120-122 during Jun 03 hospitalization thought to be transient SIADH to recent pneumonia Hyponatremia workup deferred at that time. On arrival Jun 09, Na 119, severe range but asymptomatic. Given furosemide 40mg IV Na did not improve significantly, improved with 3% saline in ICU. She does have edema, but echo not c/w fluid overload functionally. Her hyponatremia got worse with diuresis from previous CHF admission until this admission. Urine studies ordered: urine sodium <50mmol/L, urine/serum osmolality is a send out no pseudohyponatremia. TSH nl. Improved slightly after stopping furosemide, fluid restriction, continue to monitor. AM cortisol also pending. Back to [facility] 06/13 if trend continues to improve. (2) Closed right humeral fracture: Status: Acute Assessment and plan: Patient fell May 05 2024 and humerus fracture was noted at that time. Orthopedic surgery consulted for evaluation. No intervention as injury is chronic. She is ambulatory. (3) (HFpEF) heart failure with preserved ejection fraction: Status: Acute Assessment and plan: New diagnosis during Jun 03 hospitalization Echo significant for LVEF 60%, severely dilated LA, sclerosis of aortic valve, mild/moderate mitral and tricuspid regurgitation [facility] [place] cardi[place] consulted, recommending continuation of furosemide and initiation of spironolactone, metoprolol changed from tartrate to succinate Worse edema on this admission despite increasing diuresis. Now off furosemide. continue metoprolol and spironolactone, started SGLT2i 05/12, may also help hyponatremia (4) Essential hypertension: Status: Acute Assessment and plan: Continue home regimen, losartan, metoprolol, amlodipine plus spironolactone. Cut amolodipine from 15mg to 10mg 06/12 with addition of spironolactone. No reason to split this dose with long half life. (5) CAD (coronary artery disease): Status: Chronic Assessment and plan: Continue home clopidogrel and atorvastatin. Subjective Subjective Patient reports: no new complaints, tolerating a regular diet and voiding w/o difficulty; denies nausea, vomiting, shortness of breath or fever Interval history since last seen: Events: Placed on fluid restriction, furosemide stopped. Feels okay. Walking around room. No headache or dizziness. Exam Narrative Exam Narrative: General: This is a pleasant, elderly woman in no distress HEENT: Normocephalic, atraumatic CV: RRR. 1+ pitting edema BLE Resp: CTAB Abd: soft, NTND MSK: voluntary motion x4. RUE edematous. Neuro: awake, alert, no focal deficits Objective Last Vital Signs Temp 36.0 C L 06/12/25 10:52 Pulse 63 06/12/25 10:52 Resp 18 06/12/25 10:52 BP 124/41 L 06/12/25 10:52 Pulse Ox 99 06/12/25 10:52 Laboratory Results - last 24 hr 06/12/25 05:19 WBC 7.45 RBC 2.96 L Hgb 9.4 L Hct 26.2 L MCV 89 MCH 31.8 MCHC 35.9 RDW 13.2 Plt Count 259 MPV 11.1 H Sodium 125 L Potassium 3.6 Chloride 90 L Carbon Dioxide 28.6 Anion Gap 6.8 BUN 7 L Creatinine 0.5 L Est GFR (CKD-EPI 2020) 124.73 Glucose 86 Calcium 8.7 Time Spent with Patient Time Spent with Patient: 35-49 minutes Time was spent: preparing to see the patient(eg.review tests), obtaining and/or reviewing separately otained hiistory, ordering medications,tests, procedures, referring, communicating with other health child care education coordinator, indepentently interpreting results, counseling the patient and care coordination
[2025-06-12 15:11] VITALS: BP 142/69; PULSE 78; RESP 18; TEMP 36.3; O2SAT 96
[2025-06-12 20:02] VITALS: BP 148/52; PULSE 71; RESP 16; TEMP 36.2; O2SAT 93
[2025-06-13] MEDS: Normal Saline Flush 10 ML SYR IVP ×2 (01:15→08:37)
[2025-06-13] MEDS: Levothyroxine 100 MCG TAB PO (06:14)
[2025-06-13 07:01] LABS: Anion Gap 8.7 mmol/L (3-11); BUN 6 mg/dL (9-23); CO2 25.4 mmol/L (20.0-31.0); Calcium 9.2 mg/dL (8.3-10.6); Chloride 93 mmol/L (98-107); Glucose 94 mg/dL (74-106); Potassium 4.1 mmol/L (3.5-5.1); Sodium 127 mmol/L (136-145)
[2025-06-13 07:28] VITALS: BP 132/40; PULSE 71; RESP 16; TEMP 36.8; O2SAT 92
[2025-06-13] MEDS: Atorvastatin 20 MG TAB 40 MG PO (08:35)
[2025-06-13] MEDS: Enoxaparin 40 MG/0.4 ML SYR SC (08:35)
[2025-06-13] MEDS: amLODIPine 5 MG TAB 10 MG PO (08:35)
[2025-06-13] MEDS: Empaglifozin 10 MG TAB PO (08:36)
[2025-06-13] MEDS: Spironolactone 25 MG TAB PO (08:36)
[2025-06-13] MEDS: Clopidogrel 75 MG TAB PO (08:36)
[2025-06-13] MEDS: Metoprolol CR 50 MG TABCR PO (08:36)
[2025-06-13] MEDS: Losartan 50 MG TAB 100 MG PO (08:37)
--- NOTE | 2025-06-13 08:57 | PDOC.CMPRO ---
Date of service: 06/13/25 Time of Service: 08:57 Care Management Progress Note Discharge Anticipated Barriers to Discharge: Medical Status (persistent hyponatremia) Patient/Family Education Needs: Review discharge instructions, discuss Ask Me Three Transportation: [facility] Plan: Anticipate Zane will discharge back to [facility] for rehab once medically ready. She will be transported via [facility] W/C van. She will follow up with facility providers and continue per her discharge plan of care. CM will follow and continue to assess for discharge concerns.. Social Determinants of Health Screening Will the Patient Participate in the Screening?: Declined to provide
--- NOTE | 2025-06-13 11:16 | W.PM.DS.N ---
Date of service: 06/13/25 Time of Service: 12:09 DS: Diagnosis Discharge Diagnosis (1) Acute hyponatremia: Status: Acute (2) Closed right humeral fracture: Status: Acute (3) (HFpEF) heart failure with preserved ejection fraction: Status: Acute (4) Essential hypertension: Status: Acute (5) CAD (coronary artery disease): Status: Chronic (6) SIADH (syndrome of inappropriate ADH production): Status: Acute Discharge Plan Disposition Patient Disposition: [facility]) Condition: Stable Discharge Details Reason For Visit: Hyponatremia Admit Date/Time: 06/09/25 17:33 Admit Provider: Salvador Guevara Attending Provider: Salvador Guevara Primary Care Provider: Hang Rene Hospital Course Hospital Course: 89 yo F with chronic humerus fracture, HTN, CAD, CVA, and chronic hyponatremia with baseline sodium in low 130s who was recently hospitalized with pneumonia and new HFpEF 06/03-06/07 and was sent back to SNF with her sodium still 121, which was felt secondary to the lung infection and possibly CHF. The sodium did not improve and she was sent back to [facility] and had a sodium of 119. She was initially given furosemide 40mg but sodium was still critical and she was treated with 3% saline briefly and her sodium increased to 123. On 06/11 her furosemide was stopped and fluid restriction of 1200ml was started. With this her sodium increased slowly to 125 and 127. She did not have symptoms. Fluid restriction of 1200ml per day should be continued, but may be liberalized if the sodium continues to improve. Her urine sodium returned <50. Her plasma osmolality was low at 246 while urine osmolality was higher than appropriate at 315. Her TSH and morning cortisol were both normal. She may have some degree of CHF contributing, but these findings are consistent with SIADH being the main cause of her hyponatremia. The recently started spironolactone was continued at 25mg day. With this medication and off furosemide, she should not need the potassium supplement. With addition of spironolactone, her amlodipine was cut from 15mg to 10mg. This may help with her leg swelling as well. This can be titrated up while following the potassium. She was started on empagliflozin as well to treat the HFpEF. This can also help the sodium. She should have a follow up BMP in one week. This was ordered for [facility] lab if needed. Home Meds and New Rx's Prescriptions: New acetaminophen 325 mg Tablet 650 mg PO Q4H PRN PRNQty: 50 0RF amlodipine 5 mg Tablet 10 mg PO DAILY Qty: 0 0RF spironolactone 25 mg Tablet 25 mg PO DAILY Qty: 30 0RF Jardiance 10 mg Tablet 10 mg PO QAM Qty: 90 0RF Continued atorvastatin 20 mg tablet 40 mg PO DAILY Qty: 180 4RF clopidogrel 75 mg tablet 75 mg PO DAILY Qty: 90 3RF losartan 50 mg tablet 100 mg PO DAILY Qty: 180 3RF Rx Instructions: [facility] levothyroxine 100 mcg tablet 100 mcg PO DAILY Qty: 90 4RF metoprolol succinate 50 mg tablet extended release 24 hr 50 mg PO DAILY Qty: 30 0RF Discontinued amlodipine 5 mg tablet See Rx Instructions PO BID Qty: 270 4RF Rx Instructions: 10 mg po qam and 5 mg po qpm orally twice a day; potassium chloride 20 mEq Tablet Extended Release 40 meq PO BID Qty: 60 0RF furosemide [Lasix] 20 mg tablet 40 mg PO DAILY Qty: 60 0RF Discharge Instructions Instructions: Fluid restriction Activity:: Activity as Tolerated Equipment/Supplies:: No Equipment Needed Diet:: Fluid restriction of 1200ml/day Discharge Orders Discharge Orders: Discharge Order (Routine); Ordered 06/13/25 Ordered By: Onofre Parra Other Ambulatory Orders: Basic Metabolic Panel (Routine) Timeframe: 1 Week Facility: [facility] - Location: Laboratory Outpatient - [facility] Ordered By: Onofre Parra DS: Summary Time Spent with Patient providing and/or coordinating discharge services: Greater than 30 minutes Status at Discharge Functional status at discharge: uses cane/walker Overall status at discharge: patient is back to baseline Mental Status: mental status grossly normal Speech and Movement: speech and movement normal Mood: congruent mood Affect: normal affect Exam Narrative Exam Narrative: General: This is a pleasant, elderly woman in no distress CV: RRR with 1/6 systolic murmur. 1+ pitting edema BLE Resp: CTAB Abd: soft, NTND MSK: voluntary motion x4. RUE edematous. Neuro: awake, alert, no focal deficits Psych Mental Status: mental status grossly normal Speech and Movement: speech and movement normal Mood: congruent mood Affect: normal affect DS: Data Vitals/I&O Vitals and I&O: Vital Signs Temperature 36.8 C 06/13/25 07:28 Temperature Source Temporal Artery Scan 06/13/25 07:28 Pulse 71 06/13/25 07:28 Pulse 65 06/10/25 15:40 Respiratory Rate 16 06/13/25 07:28 Respiratory Effort Normal, Non-Labored 06/09/25 20:00 Respiratory Depth Normal 06/09/25 20:00 Respiratory Pattern Normal 06/09/25 20:00 Blood Pressure 132/40 L 06/13/25 07:28 Blood Pressure Mean 70 06/13/25 07:28 Pulse Oximetry 92 06/13/25 07:28 Oxygen Delivery Method Room Air 06/13/25 07:28 Oxygen Flow Rate 0 06/13/25 07:28 Pain Level 0 06/13/25 07:28 Comment pt refused 06/12/25 23:13 Intake & Output 06/12/25 06/12/25 06/13/25 11:59 23:59 11:59 Intake Total 780 / 1016 236 / 1016 420 / 420 Output Total 100 / 1000 900 / 1000 600 / 600 Balance 680 / 16 -664 / 16 -180 / -180 Weight 69.7 kg 77.519 kg Intake: IV 0 / 0 0 / 0 0 / 0 Oral 780 / 1016 236 / 1016 420 / 420 Output: Urine 100 / 1000 900 / 1000 600 / 600 Other: Urine Color Pale Yellow Yellow Urine Appearance Clear Clear Clear Urine Odor None None Comment per pt Stool Size Moderate Stool Characteristics Soft Formed Brown Data Completed and Pending Pending Labs at Discharge: 06/09/25 06/09/25 06/09/25 15:31 15:52 21:00 WBC 9.71 RBC 3.41 L Hgb 10.5 L Hct 29.4 L MCV 86 MCH 30.8 MCHC 35.7 RDW 12.9 Plt Count 254 MPV 11.1 H Immature Gran % 0.2 Neutrophils % 79.4 Lymphocytes % 10.1 Monocytes % 8.7 Eosinophils % 1.3 Basophils % 0.3 Nucleated RBC % 0.0 Absolute Neutrophils 7.71 H Absolute Lymphocytes 0.98 L Absolute Monocytes 0.84 H Absolute Eosinophils 0.13 Absolute Basophils 0.03 PT 10.0 INR 1.0 APTT 34.0 H Sodium 119 L* 119 L* Potassium 4.5 3.9 Chloride 86 L 86 L Carbon Dioxide 26.0 27.2 Anion Gap 7 6 BUN 9 7 L Creatinine 0.5 L 0.4 L Est GFR (CKD-EPI 2020) 127.87 146.02 Glucose 103 103 Serum Osmolality Calcium 8.7 8.7 Magnesium 1.6 Total Bilirubin 1.00 AST 20 ALT 17 Alkaline Phosphatase 118 H NT-Pro-B Natriuret Pep 402 H Total Protein 6.6 Albumin 4.2 Triglycerides Total Cholesterol LDL Cholesterol, Calc HDL Cholesterol TSH Cortisol Urine Color Yellow Urine Clarity Clear Urine pH 6.0 Ur Specific [place] 1.015 Urine Protein Negative Urine Ketones Negative Urine Blood Negative Urine Nitrite Negative Urine Bilirubin Negative Urine Urobilinogen 0.2 Ur Leukocyte Esterase Small H Urine RBC 0-2 Urine WBC 5-10 Ur Epithelial Cells Rare Urine Crystals Negative Urine Bacteria Negative Urine Mucus Trace Urine Other Rare Transitional Ur Culture Indicated? No Urine Osmolality 315 Ur Random Sodium 53 Urine Glucose Negative 06/10/25 06/10/25 06/10/25 00:28 04:20 08:30 WBC 7.12 RBC 3.32 L Hgb 10.2 L Hct 28.9 L MCV 87 MCH 30.7 MCHC 35.3 RDW 12.8 Plt Count 246 MPV 10.8 Immature Gran % Neutrophils % Lymphocytes % Monocytes % Eosinophils % Basophils % Nucleated RBC % Absolute Neutrophils Absolute Lymphocytes Absolute Monocytes Absolute Eosinophils Absolute Basophils PT INR APTT Sodium 120 L* 121 L* 124 L Potassium 3.6 3.7 3.9 Chloride 87 L 89 L 90 L Carbon Dioxide 27.8 28.0 27.1 Anion Gap 4.9 4 6.9 BUN 7 L 6 L 6 L Creatinine 0.4 L 0.4 L 0.4 L Est GFR (CKD-EPI 2020) 150.24 146.02 169.67 Glucose 87 83 84 Serum Osmolality 246 L Calcium 8.4 8.3 8.6 Magnesium 1.6 Total Bilirubin AST ALT Alkaline Phosphatase NT-Pro-B Natriuret Pep Total Protein Albumin Triglycerides 45 Total Cholesterol 157 LDL Cholesterol, Calc 68.6 HDL Cholesterol 79 TSH 4.04 Cortisol Urine Color Urine Clarity Urine pH Ur Specific [place] Urine Protein Urine Ketones Urine Blood Urine Nitrite Urine Bilirubin Urine Urobilinogen Ur Leukocyte Esterase Urine RBC Urine WBC Ur Epithelial Cells Urine Crystals Urine Bacteria Urine Mucus Urine Other Ur Culture Indicated? Urine Osmolality Ur Random Sodium Urine Glucose 06/10/25 06/11/25 06/12/25 16:06 06:30 05:19 WBC 8.30 7.45 RBC 3.31 L 2.96 L Hgb 10.2 L 9.4 L Hct 28.5 L 26.2 L MCV 86 89 MCH 30.8 31.8 MCHC 35.8 35.9 RDW 13.1 13.2 Plt Count 266 259 MPV 11.1 H 11.1 H Immature Gran % Neutrophils % Lymphocytes % Monocytes % Eosinophils % Basophils % Nucleated RBC % Absolute Neutrophils Absolute Lymphocytes Absolute Monocytes Absolute Eosinophils Absolute Basophils PT INR APTT Sodium 123 L 124 L 125 L Potassium 4.2 3.8 3.6 Chloride 87 L 90 L 90 L Carbon Dioxide 26.8 26.1 28.6 Anion Gap 9 7.9 6.8 BUN 8 L 6 L 7 L Creatinine 0.4 L 0.4 L 0.5 L Est GFR (CKD-EPI 2020) 134.60 134.59 124.73 Glucose 94 85 86 Serum Osmolality Calcium 8.8 8.6 8.7 Magnesium Total Bilirubin AST ALT Alkaline Phosphatase NT-Pro-B Natriuret Pep Total Protein Albumin Triglycerides Total Cholesterol LDL Cholesterol, Calc HDL Cholesterol TSH Cortisol 11.2 Urine Color Urine Clarity Urine pH Ur Specific [place] Urine Protein Urine Ketones Urine Blood Urine Nitrite Urine Bilirubin Urine Urobilinogen Ur Leukocyte Esterase Urine RBC Urine WBC Ur Epithelial Cells Urine Crystals Urine Bacteria Urine Mucus Urine Other Ur Culture Indicated? Urine Osmolality Ur Random Sodium Urine Glucose 06/13/25 06:32 WBC RBC Hgb Hct MCV MCH MCHC RDW Plt Count MPV Immature Gran % Neutrophils % Lymphocytes % Monocytes % Eosinophils % Basophils % Nucleated RBC % Absolute Neutrophils Absolute Lymphocytes Absolute Monocytes Absolute Eosinophils Absolute Basophils PT INR APTT Sodium 127 L Potassium 4.1 Chloride 93 L Carbon Dioxide 25.4 Anion Gap 8.7 BUN 6 L Creatinine 0.5 L Est GFR (CKD-EPI 2020) 118.87 Glucose 94 Serum Osmolality Calcium 9.2 Magnesium Total Bilirubin AST ALT Alkaline Phosphatase NT-Pro-B Natriuret Pep Total Protein Albumin Triglycerides Total Cholesterol LDL Cholesterol, Calc HDL Cholesterol TSH Cortisol Urine Color Urine Clarity Urine pH Ur Specific [place] Urine Protein Urine Ketones Urine Blood Urine Nitrite Urine Bilirubin Urine Urobilinogen Ur Leukocyte Esterase Urine RBC Urine WBC Ur Epithelial Cells Urine Crystals Urine Bacteria Urine Mucus Urine Other Ur Culture Indicated? 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 (Acute) Closed right humeral fracture (Acute) Acute hyponatremia (Acute) (HFpEF) heart failure with preserved ejection fraction (Acute) Localized swelling of right upper extremity (Acute) Benign essential hypertension (Acute) Chronic hyponatremia (Acute) CAD (coronary artery disease) (Chronic) Hyponatremia (Acute) Heart failure (Acute) Edema (Acute) Dyspnea (Acute) Weight gain (Acute) Fracture of humeral shaft, right, closed (Acute 05/05/24) CRAO (central retinal artery occlusion) (Acute) Vision, loss, sudden (Acute) left eye 10/27/22 Osteoarthritis, hip, bilateral (Acute) glucosamine Osteopenia (Acute) Hypothyroidism (Acute 03/08/13) Hyperparathyroidism, unspecified (Acute 07/13/12) Has seen endo at [facility]- bx, benign (2014 @) 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 Edwards,[facility] Hyperlipidemia (Acute) Essential hypertension (Acute 09/03/13) Arthritis (Acute) Obesity (Chronic) a. Stage I. Medical History (Updated 06/13/25 @ 12:09 by Onofre Parra) Advance care planning Acute CVA (cerebrovascular accident) End of life care Advanced directives. Patient completed her advance directives and herCOLST forms. 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 History of tobacco use Fracture of thoracic spine History of hypercalcemia a. With elevate TTH secondary to a benign adenoma now diminished in size. Smoking history a. Quit approximately 50 years ago after 10 pack years. Unstable angina a. Recurrent chest pressure with left arm weakness x 4 - 6 weeks. b. Multiple cardiac risk factors. Surgical History History of cardiac cath (12/17/13) Normal coronaries Thyroid (~2005) BX; RIGHT Skin Cancer Removal 09/07/16 Para-thyroid adenoma surgery (~2014) Cardiac cath (~2013) Family History Mother , age 81 Essential hypertension Hypothyroid Hypertension Heart disease Father , age 71 Diabetes Essential hypertension Heart disease Myocardial infarction Sister Essential hypertension Heart disease Breast cancer Brother , age 83 Essential hypertension Depression Stroke Heart disease Maternal Grandfather , age 39 Pneumonia Heart disease Paternal Grandfather , age 72 Heart disease Alcohol abuse Depression Maternal Grandmother , age 36 Heart disease Pneumonia Paternal Grandmother , age 70 Heart disease Depression Son Essential hypertension Depression Alcohol abuse Son Alcohol abuse Essential hypertension Son , AGE 55 Substance abuse Diabetes Essential hypertension Heart disease Hyperlipidemia Depression Son Essential hypertension Daughter Hypertension Sister No problems noted. Social History (Updated 11/12/24 @ 12:31 by Jocelyn Martell) Smoking/Tobacco Use Status: Former Tobacco Use tobacco type: cigarettes Quit Date: 07/28/1967 Tobacco: How many years used: 10 Quit status: quit date established Second Hand Exposure: Yes Smoking risk assessment performed?: Yes Alcohol Intake: current Alcohol Intake frequency: holidays/special occasions only Previous attempts at quittin Drug use: Never Substance use type: does not use Counseling given: No Adopted: No Caregiver/Support person: No Foster care: No Household members: none Housing: house Number of Children: 5 number of grandchildren: 7 Communication Needs: None Education Level: college Do you need help understanding health information?: Never current occupation: Retired RN Pets and animals: No Sexually active: No Do you think of yourself as: straight/heterosexual Current gender identity: female What is your relationship status?: How often do you talk on the phone with friends or family?: three or more times per week How often do you get together with friends or relatives?: twice per week How often do you attend faith or sabianism services?: 1-3 times per year Do you belong to any clubs or organized social groups?: no Panel score (0-1 are the most socially isolated patients): 1 What type of physical activity do you participate in: walking Duration: 15-30 minutes/day Frequency: 5-6 times per week Gayle/Gnosticist: Mormonism Special gayle needs: No Agree to transfusion: Yes Seatbelt use: always Helmet use: No Drive intox or ride w/intox entry level truck driver: No Working smoke detector in home: Yes Carbon monox detector in home: Yes Firearms in home: No Do you feel safe at home: Yes Victim of physical abuse: No Victim of emotional abuse: No Victim of sexual abuse: No Would you like helpful sources: No Time Spent with Patient Time Spent with Patient: 45-69 minutes Time was spent: preparing to see the patient(eg.review tests), obtaining and/or reviewing separately otained hiistory, ordering medications,tests, procedures, referring, communicating with other health healthcare market consultant, indepentently interpreting results, counseling the patient and care coordination
--- NOTE | 2025-06-13 11:45 | W.NUTRFU ---
Date of service: 06/13/25 Time of Service: 11:45 Nutrition Note NOTE: Chart reviewed. Unable to visit with patient this morning. Admitted for fxr of arm with acute hyponatremia. tolerating normal diet with fair intake per nursing assessments. Hgb/Hct 9.4/26.2 yesterday. Takes jardiance at 10mg - cardiovascular dose. PT initially assessed as lower acute nutrition risk. Will continue to monitor weight, po intake, nutrition related labs for indication of needed nutrition interventions. Time Spent in Nutritional Counseling and Treatment: 0
--- NOTE | 2025-06-13 12:06 | PTTR_ITS ---
PT Notes Visit Reasons: Hyponatremia Inpatient Physical Therapy Treatment Note [facility] Date: 06/13/2025 PRECAUTIONS: Standard, Fall, fluid restriction 1200cc SUBJECTIVE: Pt asked for PT to comeback because she hasn’t had a break this morning. PT obliged and came back an hour later. Pt reported feeling well and ready to start the session. OBJECTIVE: General observation: Pt sitting in recliner with legs down and RUE down by her side. Swelling in R arm has greatly reduced since last Friday. Swelling in B LE still prominent despite TEDs in place. Pt is now on Fluid Restriction 1200cc PAIN: no pain, sore in the knees. VITALS: Monitored by nursing Therapeutic Activities ([id number]): Direct one-on-one instruction in dynamic activities to improve functional performance. BED MOBILITY/TRANSFERS Sit-stand: CGA FWW Stand-sit: CGA FWW Ambulation: Pt ambulated: 150 Feet FWW supervision Stairs: 2x Three four-inch steps supervised with railing on both sides. 1 trial reciprocal 2nd trial step to pattern PT provided verbal cueing for hand placement and AD positioning. For ambulation of stairs DPTS advised pt to perform a step two pattern instead of reciprocal to help the pt with their balance on the stairs. Therapeutic Exercises: BLE Ankle pumps 1x15 LAQ: 1x10 Seated marches: 1x10 Heel raises: 1x15 Toe raises: 1x15 ASSESSMENT: Pt ambulated much further today compared to previous sessions. PT asked pt if they needed to rest, pt declined and said they would rather go back to the room. Pt able to perform stairs. Pt originally ambulated stairs with a reciprocal step pattern. DPTS asked how the pt felt, Pt reported feeling a little unsteady. DPTS asked the pt to perform a step two pattern, and pt felt steadier. Daughter asked about fluid restriction and how much could the pt have in a day. PT provided education on CHF with fluid restriction. Pt was accepting and felt informed. Pt able to perform exercises seated in chair before resting with legs elevated. Pt continues to have weakness with ambulation and swelling in their both LE. Pt would benefit from skilled physical therapy to help address these concerns. Pt was issued a walked, as pt does not have one, and is unable to ambulate without an assistive device. PLAN: 1-2x/day, 7 days/week x 1 week. Plan of care has been reviewed with the EXCEPTIONAL NEEDS TEACHER providing the service under Physical Therapy direction. Initiate Physical Therapy intervention for pain management as needed, strengthening, bed mobility, transfers, gait, balance training, and use of assistive device TREATMENT CODE/TIME: 42472/10:51-11:30 DISCHARGE RECOMMENDATION: SNF prior to d/c to home with HHPT Written by: Raoul GOYAL Supervised by Marlen Khan PT
--- NOTE | 2025-06-13 12:09 | CMDISCH_ITS ---
Date of service: 06/13/25 Time of Service: 12:09 LACE Index Scoring Tool Questions: Length of Stay (in days): 4 - 6 Was the patient admitted via the E.D.?: Yes Comorbidities: Cerebrovascular Disease and Congestive Heart Failure E.D. Visits: 2 Answers: Total Score: 12 Risk of Readmission: High Risk Care Management Discharge Plan Reason for Hospitalization: hyponatremia Discharge Plan: Zane will discharge back to [facility] to continue her short term rehab. She will be transported by [facility] private car and will follow up with the facility providers prior to returning home. Patient/Family Education Needs: Review discharge instructions, discuss Ask Me Three
== END 2025-06-13 14:28 | disposition skilled nursing facility (03) | DRG 643 ==
LOC: ER 17:23 → ICU 19:40 → MS 06-10 15:57
PROVIDERS: Admitting Provider Family Medicine; Emergency Provider Emergency Medicine; PCP Nurse Practitioner Family; Responsible Provider Family Medicine; Visit Provider Family Medicine
DX: E22.2 Syndrome of inappropriate secretion of antidiuretic hormone (principal); S42.301K Unspecified fracture of shaft of humerus, right arm, subsequent encounter for fracture with nonunion; I11.0 Hypertensive heart disease with heart failure; I50.33 Acute on chronic diastolic (congestive) heart failure; I25.110 Atherosclerotic heart disease of native coronary artery with unstable angina pectoris; I08.3 Combined rheumatic disorders of mitral, aortic and tricuspid valves; E66.811 Obesity, class 1; E03.9 Hypothyroidism, unspecified; E89.2 Postprocedural hypoparathyroidism; M85.80 Other specified disorders of bone density and structure, unspecified site; M16.0 Bilateral primary osteoarthritis of hip; W19.XXXD Unspecified fall, subsequent encounter; Z86.73 Personal history of transient ischemic attack (TIA), and cerebral infarction without residual deficits; Z87.891 Personal history of nicotine dependence; Z79.899 Other long term (current) drug therapy
CPT/HCPCS: 00123; 36415; 80048; 80053; 80061; 82533; 83935; 85027; 96374; 97110; 97162; 97530; 99222; 99285; J1650; 73060; 81003; 81015; 83735; 83880; 83930; 84300; 84443; 85025; 85610; 85730; 93971; 94760; 99232; 99233; 99239; J1938

== ENCOUNTER 2025-06-20 13:26 | Outpatient (REF) | payer BC, SELFPAY ==
[2025-06-20 14:03] LABS: Anion Gap 12.3 mmol/L (3-11); BUN 17 mg/dL (9-23); CO2 25.7 mmol/L (20.0-31.0); Calcium 9.8 mg/dL (8.3-10.6); Chloride 98 mmol/L (98-107); Glucose 88 mg/dL (74-106); Potassium 4.1 mmol/L (3.5-5.1); Sodium 136 mmol/L (136-145)
== END 2025-06-20 13:27 | disposition home or self-care (01) ==
LOC: LBN 13:26
PROVIDERS: PCP Nurse Practitioner Family; Visit Provider Nurse Practitioner Adult Health
DX: E87.1 Hypo-osmolality and hyponatremia (principal)
CPT/HCPCS: 80048